=== PATIENT | female | born 1965 | race Caucasian/White ===

== ENCOUNTER → 2017-12-23 11:13 | Outpatient (CLI) | payer OTHER, SELFPAY ==
[2017-12-23 11:15] LABS: Bacteria 0 SEEN /hpf (None Seen); Mucous, Urine 0 SEEN /hpf (<or=2+); Red Blood Cells-Urine 0 SEEN /hpf (0-5); White Blood Cells 0 SEEN /hpf (0-5)
[2017-12-23 11:18] LABS: Color, Urine Yellow (Yellow); Glucose, Dipstick Normal (Normal); Ketone-Dipstick Negative (Negative); Leukocyte Esterase-Dipstick Negative /ul (Negative); Nitrite-Dipstick Negative (Negative); Occult Blood-Urine Negative /ul (Negative); Protein-Dipstick Negative (Negative); Specific Gravity, Urine 1.005 (1.002-1.030); Urine Bilirubin Dipstick Negative (Negative); Urine Clarity Clear (Clear); Urine Urobilinogen Normal (Normal)
[2017-12-23 11:26] LABS: Squamous Epithelial Cells - UA 0-5 SEEN /hpf (5-10)
== END ==
PROVIDERS: Visit Provider Nurse Practitioner Family
DX: R30.0 Dysuria (principal)
CPT/HCPCS: 81001; 87086

== ENCOUNTER 2018-01-19 23:22 | Emergency (ER) | payer OTHER, SELFPAY ==
[2018-01-19 23:23] VITALS: BP 143/69; PULSE 67; RESP 16; TEMP 36.6; O2SAT 96; BMI 29.6
--- NOTE | 2018-01-20 01:11 | ED.DCSUM_ITS ---
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 Patient grabbed her left arm and bend her left thumb back. Patient is complaining of pain to the base of the left thumb and along her forearm. She is right-hand dominant. Past history significant for coronary disease, asthma, hypertension, high cholesterol, reflux disease, hypothyroidism, arthritis. Physical Examination: Vital signs are unremarkable. Patient sitting in a bedside chair. Left upper extremity examination reveals tenderness palpation at the base of the left thumb. She does have normal range of motion. Normal cap refill and sensation are noted. She also has tenderness of the midshaft of the left forearm on the volar surface. No bruising or ecchymosis is noted. She has full range of motion of the elbow and shoulder. Test Results: Left hand x-rays revealed degenerative changes. There is mild lateral subluxation of the first metacarpal which may be long-standing. Left forearm x-rays reveal no acute traumatic injury. Emergency Department Course and Treatment: Patient is given a Velcro thumb spica splint. She will take Tylenol or ibuprofen at home for pain. She will follow up with critical access hospital. Treatment Plan: [] Disposition: Discharge Impression: 1. Left thumb sprain 2. Left forearm contusion This note was generated with [employer] dictation software. It may contain incorrect words, spelling, and punctuation that were not noted in review of the chart prior to signing ED Disposition - Plan for ED Patient: Disposition: Home or Assisted Living Chief Complaint: Upper Extremity Injury Instructions: ED Sprain Finger Referrals: [facility] [GROUP OF PHYSICIANS] - 2 Days
--- NOTE | 2018-01-20 01:11 | ED.DEP ---
ED Disposition - Plan for ED Patient: Disposition: Home or Assisted Living Chief Complaint: Upper Extremity Injury Instructions: ED Sprain Finger Referrals: [facility] [GROUP OF PHYSICIANS] - 2 Days
[2018-01-20 01:24] VITALS: RESP 14
== END 2018-01-20 01:25 | disposition home or self-care (01) ==
PROVIDERS: Emergency Provider Emergency Medicine; Family Provider Family Medicine; PCP Family Medicine
DX: S63.642A Sprain of metacarpophalangeal joint of left thumb, initial encounter (principal); S50.12XA Contusion of left forearm, initial encounter; Y04.2XXA Assault by strike against or bumped into by another person, initial encounter; Y93.89 Activity, other specified; Y92.230 Patient room in hospital as the place of occurrence of the external cause; Y99.0 Civilian activity done for income or pay; I25.10 Atherosclerotic heart disease of native coronary artery without angina pectoris; I10 Essential (primary) hypertension; E78.00 Pure hypercholesterolemia, unspecified; K21.9 Gastro-esophageal reflux disease without esophagitis; E03.9 Hypothyroidism, unspecified; Z87.891 Personal history of nicotine dependence
CPT/HCPCS: 73090; 73130; 99283

== ENCOUNTER → 2018-09-17 11:00 | Outpatient (CLI) | payer OTHER, SELFPAY ==
[2018-09-03 10:40] VITALS: BMI 30.4
== END ==
PROVIDERS: Family Provider Family Medicine; PCP Family Medicine; Referring Provider Internal Medicine Critical Care Medicine; Visit Provider Internal Medicine Critical Care Medicine
DX: Z09 Encounter for follow-up examination after completed treatment for conditions other than malignant neoplasm (principal)
CPT/HCPCS: 98960; G0463

== ENCOUNTER → 2018-09-21 11:13 | Outpatient (CLI) | payer OTHER, SELFPAY ==
[2018-09-21 10:41] VITALS: BMI 30.4
[2018-09-21 12:28] LABS: T4 Free Direct 1.11 ng/dL (0.76-1.46); Thyroid Stim Hormone (TSH) 1.31 uIU/mL (0.358-3.74)
== END ==
PROVIDERS: Family Provider Family Medicine; PCP Family Medicine; Visit Provider Family Medicine
DX: E03.9 Hypothyroidism, unspecified (principal)
CPT/HCPCS: 36415; 84439; 84443

== ENCOUNTER → 2018-10-14 11:05 | Outpatient (CLI) | payer OTHER, SELFPAY ==
[2018-09-03 10:40] VITALS: BMI 30.4
[2018-10-13 10:07] VITALS: BMI 30.4
--- NOTE | 2018-10-15 11:30 | PFT ---
INTRODUCTION: The patient is a 53-year-old female that presents for pulmonary function studies secondary to a diagnosis of asthma. Respiratory therapy reports good patient effort. Bronchodilators were used during testing. INTERPRETATION: Forced expiration spirometry demonstrates no evidence of a large airways obstructive ventilatory defect. There was no significant response to aerosolized bronchodilators. Spirograms are of good quality and plateau normally. Body plethysmography was performed and reveals lung volumes to be within normal limits. Diffusing capacity by single breath CO is within normal limits at 95% of predicted. IMPRESSION: Normal pulmonary function studies.
== END ==
PROVIDERS: Family Provider Family Medicine; PCP Family Medicine; Referring Provider Internal Medicine Critical Care Medicine; Visit Provider Internal Medicine Critical Care Medicine
DX: J45.909 Unspecified asthma, uncomplicated (principal)
CPT/HCPCS: 94060; 94726; 94729

== ENCOUNTER → 2018-11-29 10:39 | Outpatient (CLI) | payer OTHER, SELFPAY ==
[2018-11-29 10:33] VITALS: BMI 30.5
--- NOTE | 2018-11-29 10:41 | RAD_ITS ---
STUDY: X-RAY - PELVIS AND LEFT HIP REASON FOR EXAM: Female, 53 years old. Hip pain. TECHNIQUE: 3 views of the pelvis and hip. COMPARISON: None. FINDINGS: There is a non-specific bowel gas pattern. Normal visualized soft tissue structures. There are bilateral surgical clips within the pelvis consistent with prior tubal ligation. Normal bilateral iliac wings, sacroiliac joints and visualized sacrum. Normal bilateral superior and inferior pubic rami. There are degenerative changes of the pubic symphysis with articular narrowing and sclerosis. Normal bilateral ischial tuberosities. There are degenerative changes of the hips characterized by joint space narrowing and subchondral sclerosis. RAD/HIP, UNI W/ Pelvis 2-3 Views IMPRESSION: Degenerative changes. Electronically Signed: Tasneem Delaney MD at 17:02 EDT Tel , Service support ,
== END ==
PROVIDERS: Family Provider Family Medicine; PCP Family Medicine; Referring Provider Orthopaedic Surgery; Visit Provider Orthopaedic Surgery
DX: M25.562 Pain in left knee (principal)
CPT/HCPCS: 73502

== ENCOUNTER → 2019-01-12 14:21 | Outpatient (CLI) | payer OTHER, SELFPAY ==
--- NOTE | 2019-01-12 | EMB_PTH ---
PATIENT: MARCIN TAYLOR LOC: [facility] U#:[id number] AGE/SX: 59/F ROOM: RE01/12/[address]: ELENA Srinivasan : 1965 BED: DIS: SPEC #: [id number] RECD: 01/12/19 16:24 STATUS: GOOD ENDER #: [id number] ELLIE: 01/12/19 00:[address]: Aruna Bruno NP DEPT: SURGICAL PATHOLOGY RECD BY: Hollis Nation ENTERED: 01/13/19 07:45 SP TYPE: ENDOM BX/C YUN DR: Dr. Pato Ching DO Tissues: A - Endometrium, NOS B - Uterine cervix, NOS Procedures: Surgery Specimen Level IV HEADER OPERATION: Endometrial biopsy; cervical biopsy PRE-OP DIAGNOSIS: Abnormal uterine bleeding; polyp TISSUE SUBMITTED: A - Endometrial biopsy, B - Cervical polyp MICROSCOPIC DIAGNOSIS A. Endometrial biopsy: Simple cystic endometrial hyperplasia without atypia. B. Cervical polyp, biopsy: A fragment of inflamed benign endocervical polyp. Fragments of benign endocervical mucosa with squamous metaplasia. MARTINEZ:shala 01/14/19 MICROSCOPIC DESCRIPTION Slides are reviewed. GROSS DESCRIPTION A - Received in fixative is one container labeled with the patient's name and designated EM biopsy. The specimen consists of multiple fragments of hemorrhagic soft tissue that in aggregate measure 7.5 x 3 x 0.3 cm. The entire specimen is submitted in three cassettes. B - Received in fixative is one container labeled with the patient's name and designated cervical biopsy. The specimen consists of a pickens-pink polyp measuring 1 x 1 x 0.3 cm. Also present in the container are multiple fragments of hemorrhagic mucoid tissue that in aggregate measure 2 x 2 x 0.2 cm. The entire specimen is submitted in one cassette. / MARTINEZ:shala 01/13/19 TC:5 CPT: 79622 x2
[2019-01-12 13:47] VITALS: BMI 30.6
[2019-01-12 15:47] LABS: Absolute Lymphocyte Count 2.09 X10^3/uL (0.83-4.51); Absolute Neutrophil Count 9.3 X10^3/uL (2.0-7.7); Basophil# 0.04 X10^3/uL; Basophil% 0.3 % (0-1); Eosinophil# 0.03 X10^3/uL; Eosinophils% 0.2 % (0-5); Hematocrit 43.9 % (37-47); Lymphocyte # 2.09 X10^3/ul (4.0); Lymphocyte % 16.9 % (19-41); Mean Corp Hgb Conc 34.2 g/dL (32-36); Mean Corpuscular Hgb 31.5 pg (27.0-32.0); Mean Corpuscular Volume 92.2 fL (81-99); Mean Platelet Vol. 12.1 fl (6.2-12.0); Monocyte# 0.88 X10^3/uL; Monocyte% 7.1 % (0-10); NRBC Flagged by Analyzer 0 % (0-5); Neutrophil # 9.25 X10^3/uL (2.7-7.7); Neutrophil % 74.9 % (47-70); Platelet Count 210 K/mm3 (150-450); RBC Distribution Width CV 12.3 % (11.6-14.6); RBC Distribution Width SD 41.8 fl (35.1-43.9); Red Blood Count 4.76 M/mm3 (4.2-5.4); White Blood Count 12.4 K/mm3 (4.4-11.0)
== END ==
PROVIDERS: Family Provider Family Medicine; PCP Family Medicine; Referring Provider Nurse Practitioner Women's Health; Visit Provider Nurse Practitioner Women's Health
DX: N84.1 Polyp of cervix uteri (principal); N93.9 Abnormal uterine and vaginal bleeding, unspecified
CPT/HCPCS: 36415; 85025; 88305

== ENCOUNTER → 2019-01-14 14:06 | Outpatient (CLI) | payer OTHER, SELFPAY ==
[2019-01-07 14:50] VITALS: BMI 30.2
[2019-01-12 13:47] VITALS: BMI 30.6
--- NOTE | 2019-01-14 14:08 | US_ITS ---
STUDY: ULTRASOUND TRANSVAGINAL CLINICAL: Female, 53 years old. Dysfunctional uterine bleeding. TECHNIQUE: Predominantly transvaginal. 3 transabdominal images were obtained at the end of the study for uterine measurements. COMPARISON: Plain film AP pelvis and additional views of the right hip November 29, 2018. FINDINGS: The uterus is anteverted and is in a midline position. The uterus measures 13.0 x 8.7 x 8.9 cm. There is a 2.8 x 2.0 x 1.64 fluid-filled structure in the left posterior margin of the cervix. This might represent a nabothian cyst. The endometrium measures 14 mm in thickness, and is hyperechoic. There is no demonstrated endometrial mass. 2.8 x 3.1 x 3.6 cm heterogeneous mass consistent with a fibroid noted in the right body of the uterus I.U.D. - The patient does not have an I.U.D. The right ovary is surgically absent. There is no visualized right adnexal mass or complex lesion. There is normal arterial and normal venous vascularity. The left ovary is visualized. The left ovary measures 5.0 x 3.2 x 2.6 cm. This includes a 2.8 x 2.7 x 2.1 cm simple appearing cyst. There is no visualized left adnexal mass or complex lesion. There is normal arterial and normal venous vascularity. There is a small volume fluid in the left adnexa extending toward the cul-de-sac. Polycystic ovary disease: No. US/Transvaginal Non- IMPRESSION: 1. 3.6 cm probable fibroid in the right body of the mildly enlarged uterus. 2. Thickened endometrium, which could be physiologic. Blood clot within the endometrial cavity could also have this appearance. Hyperplasia/neoplasia not excluded. One might consider follow up immediately after the next 1-2 menstrual cycles to demonstrate normal physiologic thinning. 3. 2.8 cm fluid-filled structure along the left posterior margin of the cervix. This has a more exophytic appearance than expected for a nabothian cyst, although that is not excluded. 4. The right ovary is surgically absent. 5. 2.8 cm simple appearing cyst/follicle in the left ovary. There is small volume free fluid nearby. Electronically Signed: Darío Looney MD at 20:08 EDT , Service support ,
== END ==
PROVIDERS: Family Provider Family Medicine; PCP Family Medicine; Referring Provider Internal Medicine; Visit Provider Internal Medicine
DX: N93.8 Other specified abnormal uterine and vaginal bleeding (principal)
CPT/HCPCS: 76830; 93976

== ENCOUNTER → 2019-02-02 11:43 | Outpatient (CLI) | payer OTHER, SELFPAY ==
[2019-01-25 11:33] VITALS: BMI 30.6
[2019-02-02 12:50] LABS: Absolute Lymphocyte Count 1.11 X10^3/uL (0.83-4.51); Absolute Neutrophil Count 9.9 X10^3/uL (2.0-7.7); Basophil# 0.04 X10^3/uL; Basophil% 0.3 % (0-1); Eosinophil# 0.08 X10^3/uL; Eosinophils% 0.7 % (0-5); Hematocrit 41.1 % (37-47); Hemoglobin 13.8 g/dL (12.0-15.0); Lymphocyte # 1.11 X10^3/ul (4.0); Lymphocyte % 9.3 % (19-41); Mean Corp Hgb Conc 33.6 g/dL (32-36); Mean Corpuscular Hgb 31.3 pg (27.0-32.0); Mean Corpuscular Volume 93.2 fL (81-99); Mean Platelet Vol. 12.1 fl (6.2-12.0); Monocyte# 0.81 X10^3/uL; Monocyte% 6.8 % (0-10); NRBC Flagged by Analyzer 0 % (0-5); Neutrophil # 9.88 X10^3/uL (2.7-7.7); Neutrophil % 82.4 % (47-70); Platelet Count 187 K/mm3 (150-450); RBC Distribution Width CV 12.4 % (11.6-14.6); RBC Distribution Width SD 42.5 fl (35.1-43.9); Red Blood Count 4.41 M/mm3 (4.2-5.4)
== END ==
PROVIDERS: Family Provider Family Medicine; PCP Family Medicine; Referring Provider Obstetrics & Gynecology; Visit Provider Obstetrics & Gynecology
DX: N93.9 Abnormal uterine and vaginal bleeding, unspecified (principal)
CPT/HCPCS: 36415; 85025

== ENCOUNTER → 2019-02-04 08:32 | Outpatient (CLI) | payer OTHER, SELFPAY ==
[2019-02-03 15:37] VITALS: BMI 31.1
--- NOTE | 2019-02-04 08:34 | STE_ITS ---
Reason For Study: PREOP Stress Results Protocol: Dobutamine Protocol Maximum Predicted HR: 165 bpm Target HR: 140 bpm % Maximum Predicted HR: 86 % DurationHeart Rate Stage (mm:ss) (bpm) BP BASELINE 93 147/96 10 MCG 3:02 101 134/74 20 MCG 3:25 142 121/75 RECOVERY 95 129/69 Stress Duration: 6:27 mm:ss Maximum Stress HR: 142 bpm Baseline Echocardiogram Findings The estimated ejection fraction is 65 %. Stress Echo Wall motion Data Resting WM Intermediate WM Stress WM Resting Wall Motion Wall Motion Stress No regional wall motion No regional wall motion abnormalities noted. abnormalities noted. EKG Data The baseline ECG displays normal sinus rhythm. The patient was titrated from 10 mcg to a maximum of 20 mcg of dobutamine during the stress. The maximum heart rate attained was 166 beats per minute. This was 100% of maximum predicted heart rate. During dobutamine infusion, there were no ST or T wave changes noted to suggest ischemia. No clinical angina was noted. Interpretation Summary The estimated ejection fraction is 65 %. Normal, adequate, dobutamine echocardiogram. Negative for ischemia by EKG and echocardiographic criteria. No anginal symptoms noted. Rare PVCs noted during infusion and into recovery which is a nonspecific finding. Appropriate blood pressure response to dobutamine. Final LVEF is 75%. Test terminated due to the attainment of target heart rate. No complications. Ordering Physician: Dajuan Garcia Referring Physician: Dajuan Garcia Performed By: Dorota Markham, SARITA, RVT
== END ==
PROVIDERS: Family Provider Family Medicine; PCP Family Medicine; Referring Provider Internal Medicine Cardiovascular Disease; Visit Provider Internal Medicine Cardiovascular Disease
DX: Z01.810 Encounter for preprocedural cardiovascular examination (principal); I25.10 Atherosclerotic heart disease of native coronary artery without angina pectoris; I10 Essential (primary) hypertension; I49.3 Ventricular premature depolarization; J45.909 Unspecified asthma, uncomplicated; N93.9 Abnormal uterine and vaginal bleeding, unspecified; K52.9 Noninfective gastroenteritis and colitis, unspecified
CPT/HCPCS: 93017; 93350; J7040; Q9957; A4216

== ENCOUNTER → 2019-02-16 10:40 | Outpatient (CLI) | payer OTHER, SELFPAY ==
[2019-02-16 10:18] VITALS: BMI 31.4
[2019-02-16 12:32] LABS: Anion Gap 8 (5-15); BUN 10 mg/dL (7-18); BUN/Creat Ratio 12.5 RATIO (10-20); Calcium,Total 8.6 mg/dL (8.5-10.1); Chloride 108 mmol/L (98-107); Cholesterol 117 mg/dL (200); EST Glomerular Filtration Rate 79 mL/min (>60); Est Glom Filt Rate - Afr Amer 95 mL/min (>60); Glucose 111 mg/dL (74-106); High Density Lipoprotein 33 mg/dL; Sodium Level 140 mmol/L (136-145); Triglycerides 103 mg/dL; Very Low Density Lipoprotein 21 mg/dL (5-40)
[2019-02-18 13:09] LABS: Thyroid Stim Hormone (TSH) 2.31 uIU/mL (0.358-3.74)
== END ==
PROVIDERS: Family Provider Family Medicine; PCP Family Medicine; Visit Provider Family Medicine
DX: E78.5 Hyperlipidemia, unspecified (principal); R53.83 Other fatigue
CPT/HCPCS: 36415; 80048; 80061; 84443

== ENCOUNTER → 2019-02-16 10:43 | Outpatient (REF) | payer OTHER, SELFPAY ==
[2019-02-16 10:18] VITALS: BMI 31.4
[2019-02-16 12:23] LABS: Absolute Lymphocyte Count 1.27 X10^3/uL (0.83-4.51); Absolute Neutrophil Count 5.5 X10^3/uL (2.0-7.7); Basophil# 0.02 X10^3/uL; Basophil% 0.3 % (0-1); Eosinophils% 1.3 % (0-5); Hematocrit 41.6 % (37-47); Hemoglobin 13.4 g/dL (12.0-15.0); Lymphocyte # 1.27 X10^3/ul; Lymphocyte % 17.1 % (19-41); Mean Corp Hgb Conc 32.2 g/dL (32-36); Mean Corpuscular Hgb 30.4 pg (27.0-32.0); Mean Corpuscular Volume 94.3 fL (81-99); Monocyte# 0.48 X10^3/uL; Monocyte% 6.5 % (0-10); NRBC Flagged by Analyzer 0 % (0-5); Neutrophil # 5.53 X10^3/uL (2.7-7.7); Neutrophil % 74.5 % (47-70); Platelet Count 189 K/mm3 (150-450); RBC Distribution Width CV 12.3 % (11.6-14.6); RBC Distribution Width SD 43.2 fl (35.1-43.9); Red Blood Count 4.41 M/mm3 (4.2-5.4); White Blood Count 7.4 K/mm3 (4.4-11.0)
[2019-02-16 12:31] LABS: Color, Urine Yellow (Yellow); Glucose, Dipstick Normal (Normal); Ketone-Dipstick Negative (Negative); Leukocyte Esterase-Dipstick Negative /ul (Negative); Nitrite-Dipstick Negative (Negative); Occult Blood-Urine 25 /ul (Negative); Protein-Dipstick Negative (Negative); Urine Bilirubin Dipstick Negative (Negative); Urine Clarity Clear (Clear); Urine Urobilinogen Normal (Normal)
[2019-02-16 12:34] LABS: ALB/GLOB Ratio 1.1 RATIO (0.9-2.4); AST(SGOT) 23 U/L (15-37); Alanine Aminotransfer ALT/SGPT 44 U/L (13-56); Albumin, Serum 3.5 g/dL (3.2-5.0); Alkaline Phosphatase 67 U/L (45-117); Anion Gap 7 (5-15); BUN 10 mg/dL (7-18); Calcium,Total 8.5 mg/dL (8.5-10.1); Chloride 109 mmol/L (98-107); Cholesterol 123 mg/dL (200); Creatinine, Serum 0.84 mg/dL (0.55-1.02); EST Glomerular Filtration Rate 75 mL/min (>60); Est Glom Filt Rate - Afr Amer 91 mL/min (>60); Globulin 3.3 g/dL (2.2-4.2); Glucose 111 mg/dL (74-106); High Density Lipoprotein 39 mg/dL; LDH 168 U/L (84-246); Phosphorus 3.3 mg/dL (2.5-4.9); Protein, Total 6.8 g/dL (6.4-8.2); Sodium Level 140 mmol/L (136-145); Triglycerides 101 mg/dL; Uric Acid 4.8 mg/dL (2.6-6.0); Very Low Density Lipoprotein 20 mg/dL (5-40)
== END ==
LOC: EMPH 10:43
PROVIDERS: Family Provider Family Medicine; PCP Family Medicine
DX: Z00.00 Encounter for general adult medical examination without abnormal findings (principal)

== ENCOUNTER 2019-02-24 08:54 | Day surgery (SDC) | payer OTHER, SELFPAY ==
[2019-01-25 11:33] VITALS: BMI 30.6
[2019-02-16 10:18] VITALS: BMI 31.4
--- NOTE | 2019-02-17 04:50 | HP.PCM_ITS ---
- Problem List (1) Abnormal uterine bleeding Status: Acute Comment: simple hyperplasia, plan LAVH BS cysto (2) History of electrophysiologic study Status: Acute (3) Uterine fibroid Status: Acute (4) Acid reflux Status: Chronic (5) Arthritis Status: Chronic (6) Asthma Status: Chronic Qualifiers: (7) Atherosclerotic heart disease of [place] coronary artery without angina pectoris Status: Chronic Comment: Mild nonobstructive disease of mid LAD per [facility] 01/12/15 (8) Chronic vasomotor rhinitis Status: Chronic (9) Colitis Status: Chronic (10) Fatigue Status: Chronic (11) HLD (hyperlipidemia) Status: Chronic (12) HTN (hypertension) Status: Chronic Qualifiers: (13) Hypothyroid Status: Chronic (14) Obstructive sleep apnea (adult) (pediatric) Status: Chronic (15) Paroxysmal ventricular tachycardia Status: Chronic Comment: EPS for RVOT PVC's w/ VT RFA 02/05/2017 (16) Premature ventricular contractions (PVCs) (VPCs) Status: Chronic (17) Seasonal allergies Status: Chronic (18) Status post radiofrequency ablation (RFA) operation for arrhythmia Status: Chronic (19) Thyroid disease Status: Chronic (20) CHIOMA plantar fascitis repair Status: Resolved (21) H/O tubal ligation Status: Resolved (22) History of left heart catheterization Status: Resolved Comment: 01/12/2015 (23) History of tonsillectomy Status: Resolved History and Physical Date of Admission: 02/24/19 Intake Vital Signs 01/25/19 Body Mass Index (BMI) 30.6 01/25/19 Height 5 ft 7 in 01/25/19 Weight: 207 lb 01/25/19 Body Mass Index (BMI) 32.4 01/25/19 Blood Pressure 124/82 H 01/18/19 Body Mass Index (BMI) 30.6 Intake Visit Reasons: Discuss surgery- has not been scheduled. 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 Required: No Is patient in pain?: No Allergies amoxicillin Allergy (Intermediate, Verified 01/25/19 11:32) Hives Penicillins Allergy (Intermediate, Verified 01/25/19 11:32) Hives erythromycin base Allergy (Verified 01/25/19 11:32) hives/rash Medications Aspirin [Aspirin, Baby] 81 mg PO DAILY@0800 01/11/15 [History Confirmed 01/25/19] potassium chloride ER 20 mEq tablet,extended release 20 meq PO QDAY #90 tab 04/20/18 [Rx Confirmed 01/25/19] albuterol sulfate HFA 90 mcg/actuation aerosol inhaler 1 - 2 puff INHALATION Q6H PRN PRN #8.5 g 07/01/18 [Rx Confirmed 01/25/19] fluticasone 250 mcg-salmeterol 50 mcg/dose blistr powdr for inhalation 1 inh INHALATION BID 07/01/18 [History Confirmed 01/25/19] fluticasone propionate 50 mcg/actuation nasal spray,suspension 2 spray INTRANASAL DAILY #9.9 g 07/01/18 [Rx Confirmed 01/25/19] cetirizine 10 mg tablet 10 mg PO DAILY 07/12/18 [History Confirmed 01/25/19] diltiazem ER 120 mg tablet,extended release 24 hr 120 mg PO DAILY #30 tab 07/30/18 [Rx Confirmed 01/25/19] lansoprazole 30 mg capsule,delayed release 30 mg PO DAILY #90 cap 08/05/18 [Rx Confirmed 01/25/19] simvastatin 10 mg tablet 10 mg PO QHS #90 tab 09/21/18 [Rx Confirmed 01/25/19] diclofenac 1 % topical gel 2 g TOPICAL .twice daily #100 g 12/21/18 [Rx Confirmed 01/25/19] levothyroxine 100 mcg tablet 100 mcg PO DAILY #90 tab 12/21/18 [Rx Confirmed 01/25/19] lisinopril 20 mg tablet 20 mg PO QHS #90 tab 12/21/18 [Rx Confirmed 01/25/19] lisinopril 20 mg-hydrochlorothiazide 25 mg tablet 1 tab PO DAILY #90 tab 12/21/18 [Rx Confirmed 01/25/19] meloxicam 15 mg tablet 15 mg PO QODAY #90 tab 12/21/18 [Rx Confirmed 01/25/19] mesalamine 1.2 gram tablet,delayed release 2.4 g PO QDAY #180 tab 12/21/18 [Rx Confirmed 01/25/19] norethindrone acetate 5 mg tablet 5 mg PO .COMPLEX #45 tab 01/12/19 [Rx Confirmed 01/25/19] Is last menstrual period known: No Post menopausal: No Patient : No : No PFSH Medical History Arthritis (Chronic) Colitis (Chronic) Thyroid disease (Chronic) Seasonal allergies (Chronic) Asthma (Chronic) Acid reflux (Chronic) Hypothyroid (Chronic) Premature ventricular contractions (PVCs) (VPCs) (Chronic) HTN (hypertension) (Chronic) Dyspnea on exertion (Chronic) HLD (hyperlipidemia) (Chronic) Atherosclerotic heart disease of [place] coronary artery without angina pectoris (Chronic) Paroxysmal ventricular tachycardia (Chronic) Fatigue (Chronic) Obstructive sleep apnea (adult) (pediatric) (Chronic) Surgical History History of tonsillectomy (Resolved) H/O tubal ligation (Resolved) CHIOMA plantar fascitis repair (Resolved) History of left heart catheterization (Resolved 01/20/15) History of electrophysiologic study (Acute) History of colonoscopy (Acute) Status post radiofrequency ablation (RFA) operation for arrhythmia (Chronic 02/05/17) Family History Sister Colon cancer Grandmother Cancer Hypertension Diabetes Grandmother Hypertension Cancer Social History (Updated 01/25/19 @ 13:12 by Hillary Bailey MD) Smoking Status: Former smoker Tobacco: How many years used: 30 how long ago did patient quit smokin, 1ppd second hand exposure: Yes alcohol intake: current substance use type: does not use caffeine: Yes what type of physical activity do you participate in: none seatbelt use: always do you feel safe at home: Yes 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 : Details: MARCIN TAYLOR is a 53 year old who presents for AUB, fibroids, and endometrial hyperplasia. she has heavy prolonged bleeding which has decreased with the aygestin but she also has pelvic pain and pressure and is wanting to proceed with definitive therapy. Pregancy History 6 Elective abortions Hx Para 3 Spontaneous abortions Hx # Term Pregnancies Ectopic pregnancies Hx # Pregnancies Multiple births # of living children Past Pregnancies Del. Date Name GA/Weeks Outcome Route Bth Weight Infant Gen Labor Lgth Anesthesia Del Locatn Provider FOB Unknown Nick-1984 Unknown Ramana-1987 Unknown Erich-1991 ROS Const Constitutional: Reports as per HPI Cardio Card: Denies chest pain Resp Resp: Denies cough or dyspnea GI GI: Reports as per HPI; denies abdominal pain, constipation, nausea or vomiting : Reports as per HPI; denies nipple discharge Skin Skin/Breast: Denies change in hair, breast lump, breast pain, breast skin changes or nipple discharge Exam Const General: cooperative, no acute distress Nutritional Appearance: average body habitus Orientation: alert HENMT Head: normal to inspection, normocephalic Neck Neck: normal visual inspection, trachea midline Thyroid: thyroid normal Resp Effort & Inspection: normal respiratory effort External Female Exam: normal external appearance, normal appearance of the urethra Urethra: normal appearance of the urethra Speculum Exam - Vagina: normal appearance of the vagina Speculum Exam - Cervix: other (1cm endocervical polyp at os) Bimanual Exam- Vagina & Uterus: uterine mobility normal, uterus non-tender, uterus enlarged (10 week) Bimanual Exam- Adnexa, other: normal adnexae, no adnexal masses, adnexae non- tender Skin General: no rashes or lesions noted Assessment & Plan Problems 1. Abnormal uterine bleeding N93.9 simple hyperplasia, plan LAVH BS cysto 2. Uterine fibroid D25.9 Plan discussed options plan surgical intervention. will schedule After discussing the patient's diagnosis and treatment plan options, patient wishes to proceed with surgical management. I have discussed with the patient the risks, benefits, and alternatives of the procedure which include but are not limited to risks of anesthesia, bleeding, infection, possible damage to bowel, bladder, or surrounding vasculature which could lead to additional surgery to evaluate any complications. Patient agrees to procedure and wishes to proceed. ACOG/uptodate references given for additional information regarding procedure. Coding Level of Care Code Off vis,est,level 4 Diagnoses Abnormal uterine bleeding N93.9 Uterine fibroid D25.9
[2019-02-24] VITALS (17 sets, daily range): BP systolic 105–137; BP diastolic 55–88; PULSE 84–108; RESP 16–18; TEMP 36.6–37.6; O2SAT 95–100; BMI 30.9
--- NOTE | 2019-02-24 | HYST_PTH ---
PATIENT: MARCIN TAYLOR LOC: [facility] U#:[id number] AGE/SX: 53/F ROOM: RE02/24/[address]: Dr. Hillary Bailey MD : 1965 BED: DIS: 02/25/2019 SPEC #: [id number] RECD: 02/24/19 16:26 STATUS: GOOD ENDER #: [id number] ELLIE: 02/24/19 00:[address]: Hillary Bailey DEPT: SURGICAL PATHOLOGY RECD BY: Jai Villeda ENTERED: 02/25/19 09:12 SP TYPE: HYSTERECT OTHR DR: DO Dr. Leonardo Cornelius MD Tissues: Uterus, NOS Procedures: Surgery Specimen Level V HEADER OPERATION: ERAS, hysterectomy, lap-assisted vaginal, salpingectomy, cysto PRE-OP DIAGNOSIS: Abnormal uterine bleeding N93.9; uterine fibroid D25.9 TISSUE SUBMITTED: Uterus, cervix and left fallopian tube MICROSCOPIC DIAGNOSIS Uterus, cervix and left fallopian tube, vaginal hysterectomy and left salpingectomy: Cervix - mild chronic cystic cervicitis. - A small benign inflamed endocervical polyp. Endometrium - consistent with exogenous hormone effect with extensive cystic changes. Myometrium - intramural leiomyomas (largest measuring 6 cm in greatest dimension. Left fallopian tube - no pathologic diagnosis. See comment. Left paratubal cyst. SJ:shala 02/28/19 COMMENT Focal are of tip of fimbrial end shows ovarian tissue with mesothelial inclusion cysts may represent old tubo-ovarian adhesion. Please make reference to previous specimen ([id number]) endometrial biopsy with diagnosis of simple cystic endometrial hyperplasia without atypia and cervical polyp with diagnosis of a fragment of inflamed benign endocervical polyp. MICROSCOPIC DESCRIPTION Slides are reviewed. GROSS DESCRIPTION Received in fixative is one container labeled with the patient's name and designated uterus, cervix, fallopian tube, left. The specimen consists of a hysterectomy specimen consisting of uterus in multiple pieces, cervix and one fallopian tube identified as left. The uterus with cervix weighs in aggregate 585 gm. One piece consists of cervix and lower uterine segment and measures 7.5 x 3 x 3 cm. The ectocervical mucosa is unremarkable. The external os is oval in contour. The endocervical canal measures up to 4.5 cm in length and the endocervical mucosa is pickens, glistening and unremarkable. The triangular endometrial cavity measures 8 x 2.5 x 2.5 cm. The largest piece of uterus measures 12 x 10 x 8 cm. The detached smaller pieces of uterus measures in aggregate 12 x 12 x 5 cm. Sections of the largest piece of uterus reveal multiple intramural masses. The largest mass measures 6 cm in greatest dimension. Sections of these masses reveal pickens whorled cut surfaces without areas of hemorrhage, necrosis or cystic degeneration. The uninvolved uterine wall measures up to 6 cm in thickness. A piece of uterus shows focal area of pink-red endometrium without any additional mass lesion. The endometrium in this area measures 0.1 cm in thickness. The left fallopian tube measures 6 cm in length and 0.5 cm in diameter. The fimbrial end is identified. The proximal end of the fallopian tube shows two [place] clips which appear intact. A paratubal cyst is noted adjacent to the fimbrial end of the fallopian tube measuring 2.5 cm in greatest dimension. It is filled with clear fluid. Counterintelligence Specialist sections are submitted in 11 cassettes as follows: 1 & 2 - cervix, 3-6 - uterine wall with possible endometrial lining, 7??largest nodular mass, 8 - second largest nodular mass, 9 & 10 - smaller nodular masses, 11 - left fallopian tube and paratubal cyst. / MARTINEZ:shala 02/25/19 TC: 5 CPT: 34489
[2019-02-24] MEDS: dexAMETHasone 10 MG/ML Vial 8 MG IV (07:00)
[2019-02-24] MEDS: Magnesium Sulfate 4gm/100mL 4 GM/100 ML IV.SOLN. IV (07:00)
[2019-02-24 09:29] LABS: Internal QC Validated? YES +Cl - CLEAR BKGD; Pregnancy, Urine Negative Negative
[2019-02-24 09:46] LABS: Bedside Glucose 159 mg/dL (70-110)
[2019-02-24] MEDS: Acetaminophen 500 MG Tablet 1000 MG PO ×2 (10:06→17:44)
[2019-02-24] MEDS: Scopolamine 1mg/72hr Patch 1 PATCH TRANSDERM. (10:06)
[2019-02-24] MEDS: Gabapentin 600 MG Tablet PO (10:07)
[2019-02-24] MEDS: Celecoxib 200 MG Capsule 400 MG PO (10:07)
[2019-02-24] MEDS: Phenazopyridine 95 MG Tablet 190 MG PO (10:08)
[2019-02-24] MEDS: Lactated Ringers 1,000 ML 40 ML IV (10:11)
[2019-02-24] MEDS: Enoxaparin 40 MG/0.4 ML Syringe SC (10:13)
[2019-02-24 10:30] LABS: International Normalized Ratio 1.1
--- NOTE | 2019-02-24 11:24 | OP.PCM_ITS ---
Problem List (1) Abnormal uterine bleeding Status: Acute Comment: simple hyperplasia, plan LAVH BS cysto (2) History of electrophysiologic study Status: Acute (3) Uterine fibroid Status: Acute (4) Acid reflux Status: Chronic (5) Arthritis Status: Chronic (6) Asthma Status: Chronic Qualifiers: (7) Chronic vasomotor rhinitis Status: Chronic (8) Colitis Status: Chronic (9) Fatigue Status: Chronic (10) HLD (hyperlipidemia) Status: Chronic (11) HTN (hypertension) Status: Chronic Qualifiers: (12) Hypothyroid Status: Chronic (13) Obstructive sleep apnea (adult) (pediatric) Status: Chronic (14) Paroxysmal ventricular tachycardia Status: Chronic Comment: EPS for RVOT PVC's w/ VT RFA 02/05/2017 (15) Premature ventricular contractions (PVCs) (VPCs) Status: Chronic (16) Seasonal allergies Status: Chronic (17) Status post radiofrequency ablation (RFA) operation for arrhythmia Status: Chronic (18) Thyroid disease Status: Chronic (19) H/O tubal ligation Status: Resolved (20) History of left heart catheterization Status: Resolved Comment: 01/12/2015 (21) History of tonsillectomy Status: Resolved Report of Operation Date of Procedure: 02/24/19 Pre-Operative Diagnosis: aub fibroids Post-Operative Diagnosis: same plus endometriosis Surgery/Procedure Performed:: lavh left salpingectomy cysto Description of Surgical Findings:: Stage II endometriosis with significant implants and adhesions in the left pelvic sidewall and over the uterus and ovaries and cul-de-sac. Significantly enlarged fibroid uterus right ovary and tube absent. 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 Patient was taken back to the operating room and placed in the dorsal lithotomy position. General anesthesia was induced and patient was prepped and draped in normal sterile fashion. Uterine manipulator was placed inside the uterus and Cook catheter placed in the bladder. The umbilicus was grasped with towel clamps and an intraumbilical incision was made after injecting with quarter percent Marcaine and a Veress needle entered into the abdomen confirmed to be intra-abdominal with a low opening pressure. Abdomen was insufflated with CO2 gas and the Veress needle removed and the 5 mm trocar was placed under direct visualization without complication. Right and left lower quadrants were transilluminated and injected with quarter percent Marcaine and 5 mm ports placed under direct visualization. Pelvis was well visualized see operative findings for additional information. Adhesions of the left pelvic sidewall to the omentum and sigmoid colon were taken down with the LigaSure device. Old endometriosis and adhesions were seen here in this area. Left fallopian tube was identified and transected with the LigaSure device across the mesosalpinx to the level of the utero-ovarian ligament which was also transected with the LigaSure device. Right fallopian tube and ovary were noted to be absent. There is a small adhesion of the tube to some epiploica of the rectosigmoid which was transected with the LigaSure device. The broad ligament was opened up by transecting the round ligament bilaterally and skeletonizing the uterine vessels bilaterally and creating a bladder flap using the LigaSure device. The uterine arteries were transected bilaterally with good visualization of the bladder and the ureters were seen to be inferior lateral to the operative area. Attention was then paid to the vaginal portion of the procedure and the cervix was grasped with Danny clamps and circumferentially injected with dilute vasopressin. A circumferential incision was made and the vaginal mucosa was mobilized off posteriorly and the cul-de-sac entered into sharply and a longneck speculum placed. The anterior cul-de-sac was then identified and entered into sharply. The uterosacral ligaments were clamped cut and suture ligated with 0 Monocryl bilaterally followed by the cardinal ligaments which were clamped cut and suture ligated bilaterally with 0 Monocryl. The uterus serially descended and was removed without difficulty with minimal morcellation. Pelvic sidewall pedicles were checked and noted to have excellent hemostasis. The vaginal mucosa was reapproximated incorporating the posterior peritoneum. This was reapproximated using 0 Vicryl [id number] sutures. Excellent hemostasis was noted. The cystoscopy was then performed and bilateral ureteral strong spray was noted and the bladder was noted to have no abnormality or lesions seen. Cook catheter was replaced and then attention paid to the abdominal portion of the procedure again. The pelvis and cul-de-sac was well visualized and no significant active bleeding noted but some raw areas were seen on the peritoneum and therefore surgicel was applied. Pressure was taken down and the areas visualized and noted of excellent hemostasis. All ports were removed under direct visualization without complication and the abdomen was desufflated of air. The instruments removed from the abdomen and the vagina vaginal sweep was negative. Port sites on the abdomen were closed with 4-0 Monocryl interrupted sutures and Steri's and windows were applied. She was awoken and taken recovery in stable condition. Grafts/Implants Used: none - Complications none - Admit VTE Documentation VTE Present on Admission: No VTE Mechan Device Prophylaxis: SCD's Multi Select Codes - Urinary/Genital Urinary/Genital CPT Codes: 54010 Cystoscopy, 23673 LAVH+BS/O >250gr Uterus
[2019-02-24] MEDS: Vasopressin 20 UNITS/ML Vial (11:41)
[2019-02-24] MEDS: Bupivacaine 0.25% 30 ML Vial (14:50)
--- NOTE | 2019-02-24 15:20 | EKGRS_ITS ---
Test Reason : EKG CHANGE Blood Pressure : / mmHG Vent. Rate : 085 BPM Atrial Rate : 085 BPM P-R Int : 162 ms QRS Dur : 100 ms QT Int : 404 ms P-R-T Axes : 077 071 055 degrees QTc Int : 480 ms Sinus rhythm with occasional Premature ventricular complexes Prolonged QT Abnormal ECG No previous ECGs available Confirmed by RAJINDER PAGAN ([id number]), newspaper photo editor BRYAN LOU ([id number]) on 03/01/2019 1:32:52 PM Referred By: Hillary Bailey Confirmed By:RAJINDER PAGAN
[2019-02-24] MEDS: Lactated Ringers 1,000 ML 70 ML IV ×2 (15:57→16:56)
[2019-02-24 16:06] LABS: Albumin, Serum 3.4 g/dL (3.2-5.0); Anion Gap 10 (5-15); BUN 10 mg/dL (7-18); BUN/Creat Ratio 9.2 RATIO (10-20); Calcium,Total 7.8 mg/dL (8.5-10.1); Chloride 109 mmol/L (98-107); Creatinine, Serum 1.09 mg/dL (0.55-1.02); EST Glomerular Filtration Rate 55 mL/min (>60); Est Glom Filt Rate - Afr Amer 67 mL/min (>60); Estimated Creatinine Clearance 56.71 ml/min; Glucose 136 mg/dL (74-106); Magnesium 2.6 mg/dL (1.6-2.6); Potassium 4.3 mmol/L (3.5-5.1); Sodium Level 141 mmol/L (136-145); Thyroid Stim Hormone (TSH) 2.19 uIU/mL (0.358-3.74)
[2019-02-24] MEDS: Ketorolac 30 MG/ML Syringe IV (16:36)
[2019-02-24] MEDS: oxyCODONE 5 MG Tablet PO ×2 (17:42→22:19)
--- NOTE | 2019-02-24 18:08 | PCM.CONS.C ---
Problem List (1) Paroxysmal ventricular tachycardia Status: Chronic Comment: EPS for RVOT PVC's w/ VT RFA 02/05/2017 (2) Premature ventricular contractions (PVCs) (VPCs) Status: Chronic (3) Status post radiofrequency ablation (RFA) operation for arrhythmia Status: Chronic (4) Atherosclerotic heart disease of [place] coronary artery without angina pectoris Status: Chronic Comment: Mild nonobstructive disease of mid LAD per [facility] 01/12/15 (5) HLD (hyperlipidemia) Status: Chronic (6) HTN (hypertension) Status: Chronic Qualifiers: Reason for Consult Date of Consultation: 02/24/19 History of Present Illness: The patient is a 53 year old white female with a past cardiovascular history which is included hyperlipidemia, hypertension, FST-qht-mfscseiowcattnnl significant, PVCs, paroxysmal ventricular tachycardia, status post EPS/RFA, who is now status post gynecologic surgery who is referred for postoperative evaluation of PVCs. The patient states at the moment she has no ongoing obvious symptoms with respect to palpitations. She notes no obvious ongoing chest discomfort or difficulty breathing. She states her main concerns are her lower abdominal/pelvic related concerns/discomfort occurring postop. She notes that since her most recent outpatient cardiovascular visit on she has had no new concerning symptoms of worsening palpitations, near-syncope/syncope, or concerns of chest discomfort or difficulty breathing leading up to the time of her surgery. She was placed on the medical surgical floor following her gynecologic surgery. She was placed on telemetry. She has been noted to have sinus rhythm with PVCs as well as evidence of ventricular trigeminy. A 12-lead ECG was obtained. She was noted to have sinus rhythm with PVCs in a pattern compatible with intermittent ventricular trigeminy. Otherwise there were no acute ECG changes. [] Past Medical History Allergies/Adverse Reactions: Allergies amoxicillin Allergy (Intermediate, Verified 02/24/19 09:49) Hives Penicillins Allergy (Intermediate, Verified 02/24/19 09:49) Hives erythromycin base Allergy (Verified 02/24/19 09:49) hives/rash Home Medications: Ambulatory Orders Medication Instructions Recorded Aspirin [Aspirin, Baby] 81 mg PO DAILY@0800 01/11/15 potassium chloride ER 20 mEq 20 meq PO QDAY #90 tab 04/20/18 tablet,extended release albuterol sulfate HFA 90 1 - 2 puff INHALATION Q6H PRN PRN 07/01/18 mcg/actuation aerosol inhaler #8.5 g cetirizine 10 mg tablet 10 mg PO DAILY 07/12/18 lansoprazole 30 mg capsule,delayed 30 mg PO DAILY #90 cap 08/05/18 release lisinopril 20 mg tablet 20 mg PO QHS #90 tab 12/21/18 lisinopril 20 1 tab PO DAILY #90 tab 12/21/18 mg-hydrochlorothiazide 25 mg tablet meloxicam 15 mg tablet 15 mg PO QODAY #90 tab 12/21/18 diltiazem ER 120 mg 120 mg PO DAILY #30 tab 02/16/19 tablet,extended release 24 hr levothyroxine 100 mcg tablet 100 mcg PO DAILY #90 tab 02/16/19 simvastatin 10 mg tablet 10 mg PO QHS #90 tab 02/16/19 Diclofenac Sodium [Voltaren] 2 g TOPICAL .twice daily PRN 02/18/19 Fluticasone Propion/Salmeterol 1 puff IH DAILY 02/18/19 [Wixela 250-50 Inhub] Mesalamine 2.4 g PO QDAY 02/18/19 norethindrone acetate 5 mg tablet 5 mg PO BID #7 tab 02/23/19 Oxycodone HCl/Acetaminophen 1 - 2 tab PO Q4H PRN PRN 7 Days 02/24/19 [Percocet 5-325] #15 tab Past Medical History (Chronic Problems): Chronic Problems (Last Reviewed 02/16/19 @ 10:40 by Pato Ching DO) Trochanteric bursitis of left hip (Chronic) Refer to ortho for injection Obstructive sleep apnea (adult) (pediatric) (Chronic) Arthritis (Chronic) Colitis (Chronic) Thyroid disease (Chronic) Seasonal allergies (Chronic) Chronic vasomotor rhinitis (Chronic) Thoracic back pain (Chronic) Asthma (Chronic) Acid reflux (Chronic) Hypothyroid (Chronic) Status post radiofrequency ablation (RFA) operation for arrhythmia (Chronic 02/05/17) Premature ventricular contractions (PVCs) (VPCs) (Chronic) HTN (hypertension) (Chronic) Dyspnea on exertion (Chronic) HLD (hyperlipidemia) (Chronic) Atherosclerotic heart disease of [place] coronary artery without angina pectoris (Chronic) Mild nonobstructive disease of mid LAD per [facility] 01/12/15 Paroxysmal ventricular tachycardia (Chronic) EPS for RVOT PVC's w/ VT RFA 02/05/2017 Fatigue (Chronic) Obstructive sleep apnea (adult) (pediatric) (Chronic) Lives: Spouse/ Significant Other Smoking Status: Former smoker Tobacco Use: Non-smoker Alcohol: None Drugs: None Review of Systems - Review of Systems General: Denies: Fever, Night Sweats, Fatigue Cardiovascular: Denies: Chest Discomfort, Shortness of Breath, Orthopnea, PND, Peripheral Edema, Palpitations, Lightheadedness, Dizziness, Near Syncope, Syncope Respiratory: Denies: Cough, Sputum Production, Hemoptysis Gastrointestinal: Reports: Abdominal Discomfort. Denies: Hematemesis, Hematochezia, Melena Genitourinary: Denies: Dysuria, Hematuria Subjectve: This is a 53-year-old white female who is now status post gynecologic surgery who appears to be resting reasonably comfortably with no acute cardiovascular complaints. Objective: Vital Signs Temp Pulse Resp BP Pulse Ox 99.7 F H 93 18 112/63 96 02/24/19 17:21 02/24/19 17:39 02/24/19 17:21 02/24/19 17:39 02/24/19 17:21 Oxygen Flow Rate (L/min) 6 Oxygen Delivery Method Room Air Weight: 197 lb 12.074 oz Body Mass Index (BMI) 30.9 Intake and Output for Last 24 Hours 02/22/19 02/23/19 02/24/19 23:59 23:59 23:59 Intake Total 2266.0 / 2266.0 Output Total 420 / 420 Balance 1846.0 / 1846.0 General: Awake, Alert, Oriented x 3, Cooperative, No Acute Distress HEENT: Atraumatic, Normocephalic, PERRL, EOMI, Sclera Non Icteric Oral: Moist Mucosa Neck: Supple, Good ROM, No JVD Lungs: Clear to auscultation Cardiovascular: Regular Rhythm, Premature Ectopic Beats, Normal S1, Normal S2 Vascular: No Carotid Bruits Abdomen: Bowel Sounds Present, Soft Extremities: No edema Neurological: No Focal Motor or Sensory Deficit Psych/Mental Status: Appropriate 02/24/19 09:15: PT 14.0, INR 1.1, APTT 30.0 02/24/19 15:35: Sodium 141, Potassium 4.3, Chloride 109 H, Carbon Dioxide 22.0, Anion Gap 10, BUN 10, Creatinine 1.09 H, Est GFR (MDRD) Af Amer 67, Est GFR (MDRD) Non-Af 55 L, BUN/Creatinine Ratio 9.2 L, Glucose 136 H, Calcium 7.8 L, Magnesium 2.6, Troponin I < 0.015 Rhythm: Sinus rhythm; PVCs EKG: As noted above Echocardiogram: 10-08-2016: The left ventricle was normal with an LVEF of 65% with trivial TR and trivial [place] and an estimated RV systolic pressure of 23 mmHg Stress Test: [place] stress echocardiogram: 02-04-19: Considered negative for evidence of myocardial ischemia; PVCs were noted in the infusion phase as well as the recovery phase Cardiac Cath: 01-12-15: Left ventricle reported normal with a normal LVEDP; mild nonobstructive CAD of the LAD midportion (30% stenosis) with the remainder of the vessels demonstrating no significant disease. Holter monitor: 12-08-16: Sinus rhythm with occasional PACs and frequent PVCs and patterns compatible with ventricular couplets/triplets; ventricular bigeminy/trigeminy; wide-complex runs; with no activity or symptoms recorded EPS: The patient states this was performed at [facility] and was considered a lengthy procedure and unfortunately unsuccessful with respect to complete ablation of her underlying ventricular ectopy Assessment/Plan 1. PVCs/paroxysmal ventricular tachycardia The patient has undergone extensive cardiovascular evaluation for this diagnosis. The patient has been treated medically. Apparently she has had improvement with calcium channel antagonist therapy. At the present time she will continue to be monitored while she recuperates from her gynecologic surgery. She will be restarted on her calcium channel antagonist therapy. She does not appear to require, barring unforeseen events, additional cardiovascular diagnostic studies or therapeutic intervention at this time. 2. Status post EPS/RFA Again she is undergone extensive cardiovascular evaluation which included EPS/RFA. This was reported as unsuccessful with respect to complete ablation of her ventricular ectopy. She was delegated to medical management. She reportedly has had improvement with calcium channel antagonist therapy. This will be continued. She will continue to be monitored as she recuperates from her surgical procedure. 3. CAD She has a history of non-angiographically significant appearing CAD. She does need to continue risk factor evaluation care as deemed appropriate. At the moment, barring unforeseen events, it does not appear that she has experienced an acute postoperative adverse cardiovascular event and thus does not require additional cardiac diagnostic studies or therapeutic intervention. 4. Hyperlipidemia The patient will need to continue risk factor evaluation care as deemed appropriate. 5. Hypertension The patient's blood pressure can be followed. Her medications can be adjusted as deemed appropriate. Comment: The patient's case was discussed and reviewed with the patient and her family members present. This note was generated using a voice recognition system and there may be incorrect words, spelling or punctuation that were not noted when reviewing the office note prior to saving.
[2019-02-24] MEDS: Albuterol 2.5 MG/3 ML VIAL.NEB. INHALATION (19:10)
[2019-02-24] MEDS: Budesonide Respules 0.5 MG/2 ML AMPUL.NEB. INHALATION (19:10)
[2019-02-24] MEDS: Lisinopril 20 MG Tablet PO (22:21)
[2019-02-24] MEDS: Atorvastatin Calcium 10 MG Tablet 5 MG PO (22:28)
[2019-02-25] VITALS (7 sets, daily range): BP systolic 133–139; BP diastolic 56–76; PULSE 80–106; RESP 18; TEMP 36.3–36.9; O2SAT 95–99
[2019-02-25] MEDS: Acetaminophen 500 MG Tablet 1000 MG PO ×2 (00:49→06:34)
[2019-02-25] MEDS: Ketorolac 30 MG/ML Syringe IV ×2 (00:54→06:35)
[2019-02-25 06:38] LABS: Hematocrit 37.3 % (37-47); Hemoglobin 12.4 g/dL (12.0-15.0); Mean Corp Hgb Conc 33.2 g/dL (32-36); Mean Corpuscular Hgb 30.8 pg (27.0-32.0); Mean Corpuscular Volume 92.8 fL (81-99); Platelet Count 210 K/mm3 (150-450); Red Blood Count 4.02 M/mm3 (4.2-5.4); White Blood Count 12.3 K/mm3 (4.4-11.0)
[2019-02-25 06:51] LABS: Anion Gap 10 (5-15); BUN 13 mg/dL (7-18); BUN/Creat Ratio 14.1 RATIO (10-20); Calcium,Total 8.1 mg/dL (8.5-10.1); Chloride 106 mmol/L (98-107); Creatinine, Serum 0.92 mg/dL (0.55-1.02); EST Glomerular Filtration Rate 67 mL/min (>60); Est Glom Filt Rate - Afr Amer 81 mL/min (>60); Estimated Creatinine Clearance 67.19 ml/min; Glucose 114 mg/dL (74-106); Potassium 4.3 mmol/L (3.5-5.1); Sodium Level 139 mmol/L (136-145)
[2019-02-25] MEDS: Levothyroxine 100 MCG Tablet PO (06:57)
[2019-02-25] MEDS: Budesonide Respules 0.5 MG/2 ML AMPUL.NEB. INHALATION (07:29)
[2019-02-25] MEDS: Albuterol 2.5 MG/3 ML VIAL.NEB. INHALATION (07:29)
--- NOTE | 2019-02-25 08:10 | PN.OBGYN_ITS ---
Subjective: patient recovering well, denies CP, SOB, N, or V. patient is ambulating, voiding ,tolerating adequate po, and pain is controlled with oral medications. - Physical Exam General: Alert, Oriented x3 Lungs: Clear to auscultation Cardiovascular: Regular rate, Regular Rhythm Abdomen: Soft, Non Tender Vital Signs Temp Pulse Resp BP Pulse Ox 97.7 F L 90 18 135/70 H 97 02/25/19 06:39 02/25/19 07:29 02/25/19 07:29 02/25/19 06:39 02/25/19 07:29 Oxygen Flow Rate (L/min) 6 Oxygen Delivery Method Room Air Weight: 197 lb 12.074 oz Body Mass Index (BMI) 30.9 Intake and Output for Last 24 Hours 02/23/19 02/24/19 02/25/19 23:59 23:59 23:59 Intake Total 2266.0 / 2666.0 2284.67 / 2284.67 Output Total 420 / 1120 1350 / 1350 Balance 1846.0 / 1546.0 934.67 / 934.67 Laboratory Tests Past 24 Hrs 02/24/19 02/24/19 02/24/19 09:15 09:16 09:30 WBC RBC Hgb Hct MCV MCH MCHC RDW Std Deviation RDW Coeff of Rohan Plt Count MPV PT 14.0 INR 1.1 APTT 30.0 Sodium Potassium Chloride Carbon Dioxide Anion Gap BUN Creatinine Estim Creat Clear Calc Est GFR (MDRD) Af Amer Est GFR (MDRD) Non-Af BUN/Creatinine Ratio Glucose Calcium Magnesium Troponin I Albumin TSH Urine Test Negative Blood Type B NEGATIVE Antibody Screen NEGATIVE 02/24/19 02/25/19 02/25/19 15:35 05:45 05:45 WBC 12.3 H RBC 4.02 L Hgb 12.4 Hct 37.3 MCV 92.8 MCH 30.8 MCHC 33.2 RDW Std Deviation 41.0 RDW Coeff of Rohan 12.0 Plt Count 210 MPV 12.0 PT INR APTT Sodium 141 139 Potassium 4.3 4.3 Chloride 109 H 106 Carbon Dioxide 22.0 23.0 Anion Gap 10 10 BUN 10 13 Creatinine 1.09 H 0.92 Estim Creat Clear Calc 56.71 67.19 Est GFR (MDRD) Af Amer 67 81 Est GFR (MDRD) Non-Af 55 L 67 BUN/Creatinine Ratio 9.2 L 14.1 Glucose 136 H 114 H Calcium 7.8 L 8.1 L Magnesium 2.6 Troponin I < 0.015 Albumin 3.4 TSH 2.19 Urine Test Blood Type Antibody Screen POC Glucose 02/24/19 09:34 POC Glucose 159 H Medical Necessity - Tobacco Use Smoking Status: Former smoker Tobacco Use: Non-smoker Assessment/Plan All Active Problems (Last Reviewed 02/16/19 @ 10:40 by Pato Ching DO) Pre-operative cardiovascular examination (Acute) Abnormal uterine bleeding (Acute) Uterine fibroid (Acute) History of tonsillectomy (Resolved) H/O tubal ligation (Resolved) CHIOMA plantar fascitis repair (Resolved) History of left heart catheterization (Resolved 01/20/15) History of electrophysiologic study (Acute) History of colonoscopy (Acute) Contusion of left forearm, initial encounter (Acute) Sprain of left thumb (Acute) patient is s/p [facility] POD 1 1. routine ERAS protocol postop care- increase ambulation, encourage oral intake and oral control of pain. lovenox and scds for dvt prophylaxis, patient stable for discharge to home. s/p cardio consult- stable
[2019-02-25] MEDS: hydroCHLOROthiazide 25 MG Tablet PO (08:32)
[2019-02-25] MEDS: Lisinopril 20 MG Tablet PO (08:32)
[2019-02-25] MEDS: Meloxicam 15 MG Tablet PO (08:33)
[2019-02-25] MEDS: dilTIAZem CD 120 MG Capsule PO (08:33)
[2019-02-25] MEDS: Loratadine 10 MG Tablet PO (08:34)
[2019-02-25] MEDS: Docusate Sodium 100 MG Capsule PO (08:34)
[2019-02-25] MEDS: Enoxaparin 40 MG/0.4 ML Syringe SC (08:35)
[2019-02-25] MEDS: Mesalamine 1.2 GM Tablet 2.4 GM PO (08:35)
[2019-02-25] MEDS: Pantoprazole Sodium 40 MG Tablet PO (08:35)
--- NOTE | 2019-02-25 09:39 | DCINST_ITS ---
Discharge Diet: No Restrictions Discharge Activity: Return to Normal Activity, May Not Drive, May Shower May resume sexual activity in: 6-8 weeks Call your doctor if your incision/area has: Continuous Slow Oozing, Sudden Increased Bleeding, Increased Pain/ Swelling, Increased Redness, Foul Smelling Discharge Call your doctor if you observe: Fever of 101 or Higher, Inability to urinate, Inability to have a bowel movement, Using more than one pad per hour Allergies/Adverse Reactions: Allergies amoxicillin Allergy (Intermediate, Verified 02/24/19 09:49) Hives Penicillins Allergy (Intermediate, Verified 02/24/19 09:49) Hives erythromycin base Allergy (Verified 02/24/19 09:49) hives/rash Medications to take at Discharge Aspirin [Aspirin, Baby] 81 mg PO DAILY@0800 01/11/15 potassium chloride ER 20 mEq tablet,extended release 20 meq PO QDAY #90 tab 04/20/18 albuterol sulfate HFA 90 mcg/actuation aerosol inhaler 1 - 2 puff INHALATION Q6H PRN PRN #8.5 g 07/01/18 cetirizine 10 mg tablet 10 mg PO DAILY 07/12/18 lansoprazole 30 mg capsule,delayed release 30 mg PO DAILY #90 cap 08/05/18 lisinopril 20 mg tablet 20 mg PO QHS #90 tab 12/21/18 lisinopril 20 mg-hydrochlorothiazide 25 mg tablet 1 tab PO DAILY #90 tab 12/21/18 meloxicam 15 mg tablet 15 mg PO QODAY #90 tab 12/21/18 diltiazem ER 120 mg tablet,extended release 24 hr 120 mg PO DAILY #30 tab 02/16/19 levothyroxine 100 mcg tablet 100 mcg PO DAILY #90 tab 02/16/19 simvastatin 10 mg tablet 10 mg PO QHS #90 tab 02/16/19 Diclofenac Sodium [Voltaren] 2 g TOPICAL .twice daily PRN 02/18/19 Fluticasone Propion/Salmeterol [Wixela 250-50 Inhub] 1 puff IH DAILY 02/18/19 Mesalamine 2.4 g PO QDAY 02/18/19 norethindrone acetate 5 mg tablet 5 mg PO BID #7 tab 02/23/19 Oxycodone HCl/Acetaminophen [Percocet 5-325] 1 - 2 tab PO Q4H PRN PRN 7 Days #15 tab 02/24/19 The following prescriptions were given: Oxycodone HCl/Acetaminophen [Percocet 5-325] 1 - 2 tab PO Q4H PRN PRN 7 Days #15 tab PRN Reason: Pain Transmission Status: Received by [facility] Primary Care Physician: Pato Ching DO [Primary Care Provider] - Test Results: Test results from this visit will be discussed in further detail at your follow- up appointment, if applicable. Please Follow Up With: Hillary Bailey MD - [phone]
--- NOTE | 2019-02-25 10:10 | PCM.PN.CARD ---
Subjectve: Patient seen and examined this morning. Telemetry showed normal sinus rhythm with very rare PVCs. No chest pain or anginal symptoms. Awaiting discharge. Objective: Vital Signs Temp Pulse Resp BP Pulse Ox 97.7 F L 91 18 135/70 H 97 02/25/19 06:39 02/25/19 08:33 02/25/19 07:29 02/25/19 06:39 02/25/19 07:29 Oxygen Flow Rate (L/min) 6 Oxygen Delivery Method Room Air Weight: 197 lb 12.074 oz Body Mass Index (BMI) 30.9 Intake and Output for Last 24 Hours 02/23/19 02/24/19 02/25/19 23:59 23:59 23:59 Intake Total 2266.0 / 2666.0 2284.67 / 2284.67 Output Total 420 / 1120 2550 / 2550 Balance 1846.0 / 1546.0 -265.33 / -265.33 General: Awake, Alert, Oriented x 3 HEENT: PERRL, EOMI, Sclera Non Icteric Neck: Supple, Good ROM, No Lymph Node Enlargement Lungs: Clear to auscultation Cardiovascular: Regular Rhythm, Normal S1, Normal S2, No Murmurs, No Rubs, No Gallops Vascular: No Carotid Bruits, Normal Femoral Pulses, Normal Radial Pulses, Normal Dorsalis Pedal Pulse, Normal Posterior Tibial Pulses Abdomen: Bowel Sounds Present, Soft, Non Tender, No HSM, No Organomegaly Extremities: No Cyanosis, No Clubbing, No edema Neurological: No Focal Motor or Sensory Deficit 02/24/19 09:15: PT 14.0, INR 1.1, APTT 30.0 02/24/19 15:35: Sodium 141, Potassium 4.3, Chloride 109 H, Carbon Dioxide 22.0, Anion Gap 10, BUN 10, Creatinine 1.09 H, Est GFR (MDRD) Af Amer 67, Est GFR (MDRD) Non-Af 55 L, BUN/Creatinine Ratio 9.2 L, Glucose 136 H, Calcium 7.8 L, Magnesium 2.6, Troponin I < 0.015 02/25/19 05:45: WBC 12.3 H, RBC 4.02 L, Hgb 12.4, Hct 37.3, MCV 92.8, MCH 30.8, MCHC 33.2, Plt Count 210, MPV 12.0 02/25/19 05:45: Sodium 139, Potassium 4.3, Chloride 106, Carbon Dioxide 23.0, Anion Gap 10, BUN 13, Creatinine 0.92, Est GFR (MDRD) Af Amer 81, Est GFR (MDRD) Non-Af 67, BUN/Creatinine Ratio 14.1, Glucose 114 H, Calcium 8.1 L Rhythm: EKG: ECHO: Stress Test: Cardiac Cath: PCI: CT Surgery: Holter monitor: EPS: PPM: CXR: Chest CT Scan: Medical Necessity - Tobacco Use Smoking Status: Former smoker Tobacco Use: Non-smoker Assessment/Plan 1. PVCs: Patient had PVCs and ventricular bigeminy apparently after surgery, which is markedly calm down since yesterday. She is asymptomatic at this time and has had an extensive cardiac work-up to evaluate her coronary anatomy. She has had no anginal symptoms. Ironically, her PVCs appear to be improved with calcium channel ariel therapy, and this was restarted this morning. Telemetry overnight showed normal sinus rhythm with very rare PVCs. I recommend the patient continue her current antihypertensive and calcium channel ariel therapy, and agree that she may be discharged today. No additional cardiac work-up needed at this time. She will follow-up with Dr. Garcia going forward. 2. Thank you very much for the opportunity to participate in the cardiac care of your patient. Code Visit Inpatient E&M: 80534 Subs Hosp L2
[2019-02-25] MEDS: oxyCODONE 5 MG Tablet PO (10:24)
== END 2019-02-25 12:00 | disposition home or self-care (01) ==
LOC: SDC 08:55 → AC 08:56 → MS3 10:49
PROVIDERS: Anesthesiology; Family Provider Family Medicine; PCP Family Medicine; Referring Provider Obstetrics & Gynecology; Visit Provider Obstetrics & Gynecology
PROC: 0UT9FZZ Resection of Uterus, Via Natural or Artificial Opening With Percutaneous Endoscopic Assistance (ICD-10-PCS; CPT 52000; principal; 2019-02-24 10:35)
DX: N72 Inflammatory disease of cervix uteri (principal); N84.0 Polyp of corpus uteri; D25.1 Intramural leiomyoma of uterus; N83.8 Other noninflammatory disorders of ovary, fallopian tube and broad ligament; I47.2 Ventricular tachycardia; N80.9 Endometriosis, unspecified; M19.90 Unspecified osteoarthritis, unspecified site; J45.909 Unspecified asthma, uncomplicated; K21.9 Gastro-esophageal reflux disease without esophagitis; E03.9 Hypothyroidism, unspecified; I10 Essential (primary) hypertension; E78.5 Hyperlipidemia, unspecified; I25.10 Atherosclerotic heart disease of native coronary artery without angina pectoris; G47.33 Obstructive sleep apnea (adult) (pediatric); E07.9 Disorder of thyroid, unspecified; Z87.891 Personal history of nicotine dependence; Z79.51 Long term (current) use of inhaled steroids; Z79.82 Long term (current) use of aspirin; Z79.899 Other long term (current) drug therapy
CPT/HCPCS: 00840; 52000; 58554; 36415; 80048; 81025; 82040; 82962; 83735; 84443; 84484; 85027; 85610; 85730; 86850; 86900; 86901; 88307; 93005; 94640; 94762; J7120; J2405

== ENCOUNTER 2019-03-10 09:48 | Inpatient (IN) | payer OTHER, SELFPAY ==
[2019-03-10] VITALS (8 sets, daily range): BP systolic 110–122; BP diastolic 50–73; PULSE 97–113; RESP 16–20; TEMP 36.4–38.2; O2SAT 97–99; BMI 30.9; BMI 33.5; BMI 33.6; BMI 29.2
--- NOTE | 2019-03-10 09:56 | EKG12_ITS ---
Test Reason : NAUSEA N VOMIT Blood Pressure : / mmHG Vent. Rate : 109 BPM Atrial Rate : 109 BPM P-R Int : 148 ms QRS Dur : 094 ms QT Int : 326 ms P-R-T Axes : 053 060 038 degrees QTc Int : 439 ms Sinus tachycardia with Premature atrial complexes with Aberrant conduction Otherwise normal ECG Confirmed by LIV TALLEY, CHRISTOPHER ([id number]), field map editor LC ARTHUR ([id number]) on 03/16/2019 10:55:32 AM Referred By: MARTINEZ Confirmed By:ASTRID PECK MD
--- NOTE | 2019-03-10 09:58 | CT_ITS ---
STUDY: CT ABDOMEN AND PELVIS WITHOUT CONTRAST REASON FOR EXAM: Female, 53 years old. Nausea and vomiting. Recent hysterectomy. RADIATION DOSAGE (If Supplied By Facility): CTDIvol = ( 11.32 ) mGy, DLP = ( 622.40 ) mGycm TECHNIQUE: Transaxial images were obtained from the dome of the diaphragm to the symphysis pubis without oral contrast, and without intravenous contrast. Sagittal and coronal images were reconstructed. Individualized dose optimization techniques were used for this CT. COMPARISON: None. FINDINGS: The visualized lung bases are unremarkable. The visualized portions of the heart are within normal limits. There is decreased attenuation of the liver consistent with steatosis. Hepatomegaly. Increased attenuation within the gallbladder lumen. This may represent either sludge or small gallstones. There is mild splenomegaly. Normal pancreas. Normal bilateral adrenal glands. There is a 4.5 cm cyst in the lower pole of the right kidney. Normal left kidney. Normal visualized stomach. Normal small intestine. Normal colon. The appendix is visualized and appears normal. There is scattered atherosclerotic calcification of the abdominal aorta, without a demonstrated aneurysm. Normal inferior vena cava. There is borderline retroperitoneal lymphadenopathy with enlarged nodes no greater than 10mm in the short axis diameter. An air-fluid level is seen in the bladder. If there has been no underinflation for a Roberto catheter, fistulous communication should be ruled out. There is evidence of postoperative changes within the pelvic fat. I suggest a repeat examination following intravenous contrast menstruation and delayed imaging of the pelvis for further assessment. There is absence of the uterus consistent with a prior hysterectomy. There is a left-sided inguinal hernia containing adipose tissue. There are diffuse degenerative changes of the visualized lumbar spine. CT/Abdomen/Pelvis without Cont IMPRESSION: A fluid level in the region of the bladder as described. A repeat CT scan of the abdomen and pelvis following IV contrast and delayed imaging is recommended for further assessment. Postoperative changes in the pelvis. Hepatomegaly and diffuse fatty infiltration of the liver. Increased density within the gallbladder suggestive of sludge and/or possible gallstones. Right renal cyst. Electronically Signed: Aryan Masters, at 11:31 EDT , Service support ,
[2019-03-10] MEDS: Ondansetron 4 MG/2 ML Vial IV ×3 (10:16→21:31)
[2019-03-10] MEDS: 0.9% Normal Saline 1,000 ML 125 ML IV ×2 (10:16→18:26)
--- NOTE | 2019-03-10 10:17 | ED.DCSUM_ITS ---
History of Present Illness Chief Complaint: Nausea/Vomiting Informant: Patient Onset: Today Narrative: Vomiting diarrhea, the patient which is about 2 weeks status post laparoscopic hysterectomy that was uncomplicated indicates she has history of colitis that causes copious diarrhea times but usually is well controlled with her usual meds, she been taking those meds and has persistent diarrhea and vomiting, she indicates she is had no exposure to antibiotics sick individuals, she is had prior colonoscopies that were generally unremarkable, she was seen today by her [facility] [employer] providers and sent to the emergency department no fevers urine outputs been unremarkable the stool is watery the vomitus stomach content Past Medical History - Allergies and Home Meds Allergies/Adverse Reactions: Allergies amoxicillin Allergy (Intermediate, Verified 03/10/19 09:50) Hives Penicillins Allergy (Intermediate, Verified 03/10/19 09:50) Hives erythromycin base Allergy (Verified 03/10/19 09:50) hives/rash Primary Care Physician: Pato Ching DO [Primary Care Provider] - Past Medical History: - - Blood pressure disorder, recent laparoscopic hysterectomy Smoking Status: Former smoker Review of Systems General: Denies: Chills, Fever, Sweats Eyes: Denies: Visual changes - bilaterally, Diplopia ENT: Denies: Rhinorrhea, Sore throat Cardiovascular: Denies: Chest pain, Palpitations Respiratory: Denies: Dyspnea, Cough, Dyspnea on exertion Gastrointestinal: Reports: Abdominal pain, Nausea, Vomiting. Denies: Diarrhea, Melena, Hematochezia Genitourinary: Denies: Dysuria, Hematuria, Frequency Musculoskeletal: Denies: Back pain, Extremity Pain Skin: Denies: Rash, Wounds Neurological: Denies: Headache, Weakness, Numbness Physical Exam Vital Signs/Narrative: Vital Signs Temp Pulse Resp BP Pulse Ox 03/10/19 09:50 98.9 F 105 H 20 H 111/73 99 General: Well nourished, Well developed, No Acute Distress Head: Normocephalic, Atraumatic Eyes: Perrl, EOMI ENT: Moist mucous membranes, No rhinorrhea Neck: Supple, Nontender Cardiovascular: Regular rate, Regular rhythm, No murmurs Respiratory: No distress, CTA bilaterally, Chest nontender Abdomen: Soft, Nondistended, Normal bowel sounds, - - She has a very mild nonspecific diffuse abdominal pain that is actually improving since her postoperative status, the port sites are unremarkable without drainage there is no rebound or guarding no fullness Back: Nontender, Normal Inspection Extremities: Nontender, No edema Skin: Normal color, No rash Neurological: Alert, Oriented x3, Cranial nerves II-XII grossly intact, Normal Strength, Normal Sensation Psychological: Normal affect, Normal Mood Diagnostic/Tx/Re-eval - Medical Decision Making Screening labs IV fluids pain management CT scan stool for analysis and C. difficile Patient's white count returns at 30,000, the abdominal CT shows, hysterectomy, and what appears to be fluid in and around the bladder etiology of the fluid is unclear, radiology recommends CT imaging with contrast delayed images of the pelvis, creatinine returns at 2.5 was normal 2 weeks ago so contrast cannot be given, the patient's been medicated her lactate returned to 1.3 she started on IV antibiotics, we spoke with Dr. Robertson on-call for Dr. Robel Alvarez he asked that we contact consult Dr. Newby, spoke with Dr. Newby and he will be down to see the patient shortly to determine further management options discussed all the above with the patient and the concept of pelvic infection pelvic abscess or other causes to explain all the above and the potential need for either admission or transfer to another facility and she understands Admit stable pending surgery evaluation Final impression Leukocytosis, pelvic fluid or abscess, acute kidney injury, status post laparoscopic hysterectomy, surgery evaluation ED Disposition - Plan for ED Patient: Diagnosis: Pelvic fluid abscess ,oj Referrals: Pato Ching DO [Primary Care Provider] -
[2019-03-10 10:18] LABS: Absolute Lymphocyte Count 1.01 X10^3/uL (0.83-4.51); Basophil# 0.09 X10^3/uL; Basophil% 0.3 % (0-1); Eosinophil# 0.01 X10^3/uL; Hemoglobin 13.2 g/dL (12.0-15.0); Lymphocyte # 1.01 X10^3/ul (4.0); Lymphocyte % 3.5 % (19-41); Mean Corp Hgb Conc 33.8 g/dL (32-36); Mean Corpuscular Hgb 30.4 pg (27.0-32.0); Mean Corpuscular Volume 89.9 fL (81-99); Mean Platelet Vol. 10.9 fl (6.2-12.0); Monocyte# 1.17 X10^3/uL; Monocyte% 4.1 % (0-10); NRBC Flagged by Analyzer 0 % (0-5); Neutrophil # 25.97 X10^3/uL (2.7-7.7); Neutrophil % 90.6 % (47-70); POSITIVE DIFFERENTIAL YES; Platelet Count 422 K/mm3 (150-450); RBC Distribution Width CV 12.1 % (11.6-14.6); RBC Distribution Width SD 40.2 fl (35.1-43.9); Red Blood Count 4.34 M/mm3 (4.2-5.4); White Blood Count 28.7 K/mm3 (4.4-11.0)
[2019-03-10 10:23] LABS: Differential Indicated SCAN CRITERIA MET
[2019-03-10 10:40] LABS: Albumin, Serum 3.1 g/dL (3.2-5.0); BUN 29 mg/dL (7-18); BUN/Creat Ratio 11.8 RATIO (10-20); Creatinine, Serum 2.46 mg/dL (0.55-1.02); EST Glomerular Filtration Rate 22 mL/min (>60); Est Glom Filt Rate - Afr Amer 26 mL/min (>60); Estimated Creatinine Clearance 25.13 ml/min; Glucose 125 mg/dL (74-106); Protein, Total 7.9 g/dL (6.4-8.2)
[2019-03-10 10:41] LABS: ALB/GLOB Ratio 0.6 RATIO (0.9-2.4); AST(SGOT) 18 U/L (15-37); Alanine Aminotransfer ALT/SGPT 34 U/L (13-56); Alkaline Phosphatase 132 U/L (45-117); Anion Gap 13 (5-15); Calcium,Total 9.1 mg/dL (8.5-10.1); Chloride 94 mmol/L (98-107); Globulin 4.8 g/dL (2.2-4.2); Lipase 262 U/L (73-393); Potassium 3.3 mmol/L (3.5-5.1); Sodium Level 129 mmol/L (136-145)
[2019-03-10 11:13] LABS: Red Blood Cells-Urine 0 SEEN /hpf (0-5)
[2019-03-10 11:21] LABS: Glucose, Dipstick Normal (Normal); Ketone-Dipstick Negative (Negative); Leukocyte Esterase-Dipstick 500 /ul (Negative); Nitrite-Dipstick Negative (Negative); Occult Blood-Urine 25 /ul (Negative); Protein-Dipstick 100 mg/dl (Negative); Specific Gravity, Urine 1.015 (1.002-1.030); Urine Clarity Sl. Cloudy (Clear); Urine Urobilinogen Normal (Normal)
[2019-03-10 11:25] LABS: Color, Urine DARK YELLOW (Yellow); Urine Bilirubin Dipstick 1 mg/dL (Negative)
[2019-03-10 11:29] LABS: White Blood Cells 5-10 SEEN /hpf (0-5)
[2019-03-10 11:32] LABS: Bacteria 2+ /hpf (None Seen); Calcium Oxalate Crystals Ur 1+ /hpf (<or=2+); Fine Granular Cast- Urine 0-5 SEEN /lpf (0-5); Hyaline Cast 0-5 SEEN /lpf (0-5); Mucous, Urine 1+ /hpf (<or=2+); Squamous Epithelial Cells - UA 0-5 SEEN /hpf (5-10)
--- NOTE | 2019-03-10 11:40 | ED.RN ---
PT OFFERED MORPHINE ORDERED AND PT REFUSES STATING THAT SHE IS CURRENTLY NOT HAVING PAIN. ORDER WILL BE CANCELLED AT THIS TIME AND WILL REQUEST FURTHER MEDICATION NEEDED.
--- NOTE | 2019-03-10 11:45 | RAD_ITS ---
STUDY: X-RAY CHEST REASON FOR EXAM: Female, 53 years old. Fever. Nausea and vomiting. TECHNIQUE: Single AP portable view of the chest. COMPARISON: Comparison is made with prior study dated January 10, 2015. FINDINGS: The lungs are clear and expanded. There is no demonstrated pleural abnormality. Normal size heart. Normal mediastinum and trace. Normal visualized pulmonary arteries. Normal visualized aortic arch and descending thoracic aorta. Normal visualized thoracic spine. Normal visualized ribs, clavicles, and shoulders. There is no demonstrated abnormality of the visualized soft tissue structures of the upper abdomen. RAD/Chest 1 View (Portable) IMPRESSION: Normal x-ray examination of the chest. Electronically Signed: Aryan Masters, at 12:25 EDT , Service support ,
--- NOTE | 2019-03-10 12:25 | US_ITS ---
STUDY: ULTRASOUND OF THE FEMALE PELVIS - COMPLETE REASON FOR EXAM: Female, 53 years old. Status post hysterectomy and possible pelvic abscess. LMP: Status post hysterectomy. TECHNIQUE: Transabdominal and Transvaginal TECHNICAL QUALITY: Adequate. COMPARISON: Comparison is made with prior CT scan abdomen and pelvis done earlier in the day. FINDINGS: The patient is status post hysterectomy. There is a 12.5 cm x 8.2 cm x 5.4 cm complex cystic structure in the pelvis corresponding to the CT findings. This is suspicious for abscess collection. The right ovary is non-visualized. The left ovary is non-visualized. US/Pelvic (Non ) IMPRESSION: 12.5 cm x 0.2 cm x 5.4 cm complex cystic structure in the mid pelvis. Abscess collection should be ruled out. Electronically Signed: Aryan Masters, at 14:57 EDT , Service support ,
[2019-03-10 12:30] LABS: Lactic Acid 1.3 mmol/L (0.4-2.0)
[2019-03-10] MEDS: Ceftriaxone 1 GM/50 ML BAG IV (13:03)
[2019-03-10] MEDS: 0.9% Normal Saline 1,000 ML 999 ML IV (13:12)
[2019-03-10] MEDS: metroNIDAZOLE 500 MG/100 ML BAG 100 MG IV (15:08)
--- NOTE | 2019-03-10 16:16 | CON.PCM_ITS ---
Problem List (1) Nausea & vomiting Status: Acute Qualifiers: Vomiting Intractability: non-intractable (2) Abnormal CT of the abdomen Status: Acute Reason for Consult Date of Consultation: 03/10/19 History of Present Illness: The patient is a 53 year old F who presents to the emergency department after seeing Aruna Bruno in the office patient is 2 week postop LAVH, BS, cysto. States has been vomiting X 3 days, having chills, not keeping fluids down and not urinating. some diarrhea. She is not complaining of any abdominal pain at the present time. She is tired of feeling sick. Patient is noted to have a white count of 28,000 vaginal ultrasound shows a 12 cm fluid collection posterior to the bladder. This was not well seen on the CAT scan. Her labs reveal that she is hyponatremic hypokalemic and has significant rise in her BUN and creatinine. Past Medical History Past Medical History (Chronic Problems): Chronic Problems (Last Reviewed 03/10/19 @ 16:17 by Dajuan Newby MD) Trochanteric bursitis of left hip (Chronic) Refer to ortho for injection Obstructive sleep apnea (adult) (pediatric) (Chronic) Arthritis (Chronic) Colitis (Chronic) Thyroid disease (Chronic) Seasonal allergies (Chronic) Chronic vasomotor rhinitis (Chronic) Thoracic back pain (Chronic) Asthma (Chronic) Acid reflux (Chronic) Hypothyroid (Chronic) Status post radiofrequency ablation (RFA) operation for arrhythmia (Chronic 02/05/17) Premature ventricular contractions (PVCs) (VPCs) (Chronic) HTN (hypertension) (Chronic) Dyspnea on exertion (Chronic) HLD (hyperlipidemia) (Chronic) Atherosclerotic heart disease of [place] coronary artery without angina pectoris (Chronic) Mild nonobstructive disease of mid LAD per [facility] 01/12/15 Paroxysmal ventricular tachycardia (Chronic) EPS for RVOT PVC's w/ VT RFA 02/05/2017 Fatigue (Chronic) Obstructive sleep apnea (adult) (pediatric) (Chronic) Medical History: Medical History (Last Reviewed 03/10/19 @ 16:17 by Dajuan Newby MD) Pre-operative cardiovascular examination (Acute) Z01.810 Abnormal uterine bleeding (Acute) N93.9 simple hyperplasia, plan LAVH BS cysto Uterine fibroid (Acute) D25.9 Arthritis (Chronic) M19.90 Colitis (Chronic) K52.9 Thyroid disease (Chronic) E07.9 Seasonal allergies (Chronic) J30.2 Asthma (Chronic) J45.909 Acid reflux (Chronic) K21.9 Hypothyroid (Chronic) E03.9 Premature ventricular contractions (PVCs) (VPCs) (Chronic) I49.3 HTN (hypertension) (Chronic) I10 Dyspnea on exertion (Chronic) R06.09 HLD (hyperlipidemia) (Chronic) E78.5 Atherosclerotic heart disease of [place] coronary artery without angina pectoris (Chronic) I25.10 Mild nonobstructive disease of mid LAD per [facility] 01/12/15 Paroxysmal ventricular tachycardia (Chronic) I47.2 EPS for RVOT PVC's w/ VT RFA 02/05/2017 Fatigue (Chronic) R53.83 Obstructive sleep apnea (adult) (pediatric) (Chronic) G47.33 Allergies amoxicillin Allergy (Intermediate, Verified 03/10/19 09:50) Hives Penicillins Allergy (Intermediate, Verified 03/10/19 09:50) Hives erythromycin base Allergy (Verified 03/10/19 09:50) hives/rash Home Medications: Ambulatory Orders Medication Instructions Recorded Aspirin [Aspirin, Baby] 81 mg PO DAILY@0800 01/11/15 potassium chloride ER 20 mEq 20 meq PO QDAY #90 tab 04/20/18 tablet,extended release albuterol sulfate HFA 90 1 - 2 puff INHALATION Q6H PRN PRN 07/01/18 mcg/actuation aerosol inhaler #8.5 g cetirizine 10 mg tablet 10 mg PO DAILY 07/12/18 lansoprazole 30 mg capsule,delayed 30 mg PO DAILY #90 cap 08/05/18 release lisinopril 20 mg tablet 20 mg PO QHS #90 tab 12/21/18 lisinopril 20 1 tab PO DAILY #90 tab 12/21/18 mg-hydrochlorothiazide 25 mg tablet meloxicam 15 mg tablet 15 mg PO QODAY #90 tab 12/21/18 diltiazem ER 120 mg 120 mg PO DAILY #30 tab 02/16/19 tablet,extended release 24 hr levothyroxine 100 mcg tablet 100 mcg PO DAILY #90 tab 02/16/19 simvastatin 10 mg tablet 10 mg PO QHS #90 tab 02/16/19 Diclofenac Sodium [Voltaren] 2 g TOPICAL .twice daily PRN 02/18/19 Fluticasone Propion/Salmeterol 1 puff IH DAILY 02/18/19 [Wixela 250-50 Inhub] Mesalamine 2.4 g PO QDAY 02/18/19 norethindrone acetate 5 mg tablet 5 mg PO BID #7 tab 02/23/19 Surgical History: Surgical History (Last Reviewed 03/10/19 @ 16:17 by Dajuan Newby MD) History of tonsillectomy (Resolved) Z98.890, Z90.89 H/O tubal ligation (Resolved) Z98.51 CHIOMA plantar fascitis repair (Resolved) History of left heart catheterization (Resolved) Onset Date: 01/20/15 Z98.890 01/12/2015 History of electrophysiologic study (Acute) Z98.890 History of colonoscopy (Acute) Z98.890 10/28/13 - Ulcerative Colitis, 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 Denies: Abdominal Pain Genitourinary: Reports: Dysuria Patient Problems: Active and Suspected Problems (Last Reviewed 03/10/19 @ 16:17 by Dajuan Newby MD) Nausea & vomiting (Acute) Abnormal CT of the abdomen (Acute) - Physical Exam General: Alert, Oriented x3 Neck: Supple, No JVD Lungs: Clear to auscultation Cardiovascular: Regular rate, Regular Rhythm, No murmurs Abdomen: Bowel Sounds Present, Soft, Non Tender, Non-Distended Vital Signs Temp Pulse Resp BP Pulse Ox 98.9 F 97 16 114/66 98 03/10/19 09:50 03/10/19 16:00 03/10/19 16:00 03/10/19 16:00 03/10/19 16:00 Oxygen Delivery Method Room Air Weight: 214 lb 8.156 oz Body Mass Index (BMI) 33.5 Intake and Output for Last 24 Hours 03/08/19 03/09/19 03/10/19 23:59 23:59 23:59 Intake Total 1866.42 / 1866.42 Balance 1866.42 / 1866.42 Laboratory Tests Past 24 Hrs 03/10/19 03/10/19 03/10/19 10:06 10:06 11:10 WBC 28.7 H RBC 4.34 Hgb 13.2 Hct 39.0 MCV 89.9 MCH 30.4 MCHC 33.8 RDW Std Deviation 40.2 RDW Coeff of Rohan 12.1 Plt Count 422 MPV 10.9 Immature Gran % (Auto) 1.500 H Neut % (Auto) 90.6 H Lymph % (Auto) 3.5 L [place] % (Auto) 4.1 Eos % (Auto) 0.0 Baso % (Auto) 0.3 Absolute Neuts (auto) 26.0 H Absolute Lymphs (auto) 1.01 Nucleated RBC % 0 Differential Comment COMMENT Sodium 129 L Potassium 3.3 L Chloride 94 L Carbon Dioxide 22.0 Anion Gap 13 BUN 29 H Creatinine 2.46 H Estim Creat Clear Calc 25.13 Est GFR (MDRD) Af Amer 26 L Est GFR (MDRD) Non-Af 22 L BUN/Creatinine Ratio 11.8 Glucose 125 H Lactic Acid Calcium 9.1 Total Bilirubin 0.50 AST 18 ALT 34 Alkaline Phosphatase 132 H Troponin I < 0.015 Total Protein 7.9 Albumin 3.1 L Globulin 4.8 H Albumin/Globulin Ratio 0.6 L Lipase 262 Urine Color DARK YELLOW Urine Clarity Sl. Cloudy Urine pH 5.0 Ur Specific [place] 1.015 Urine Protein 100 H Urine Glucose (UA) Normal Urine Ketones Negative Urine Occult Blood 25 H Urine Nitrite Negative Urine Bilirubin 1 H Urine Urobilinogen Normal Ur Leukocyte Esterase 500 H Urine RBC 0 SEEN Urine WBC 5-10 SEEN Ur Squamous Epith Cells 0-5 SEEN Calcium Oxalate Crystal 1+ Urine Bacteria 2+ Hyaline Casts 0-5 SEEN Fine Granular Casts 0-5 SEEN Urine Mucus 1+ 03/10/19 11:15 WBC RBC Hgb Hct MCV MCH MCHC RDW Std Deviation RDW Coeff of Rohan Plt Count MPV Immature Gran % (Auto) Neut % (Auto) Lymph % (Auto) [place] % (Auto) Eos % (Auto) Baso % (Auto) Absolute Neuts (auto) Absolute Lymphs (auto) Nucleated RBC % Differential Comment Sodium Potassium Chloride Carbon Dioxide Anion Gap BUN Creatinine Estim Creat Clear Calc Est GFR (MDRD) Af Amer Est GFR (MDRD) Non-Af BUN/Creatinine Ratio Glucose Lactic Acid 1.3 Calcium Total Bilirubin AST ALT Alkaline Phosphatase Troponin I Total Protein Albumin Globulin Albumin/Globulin Ratio Lipase Urine Color Urine Clarity Urine pH Ur Specific [place] Urine Protein Urine Glucose (UA) Urine Ketones Urine Occult Blood Urine Nitrite Urine Bilirubin Urine Urobilinogen Ur Leukocyte Esterase Urine RBC Urine WBC Ur Squamous Epith Cells Calcium Oxalate Crystal Urine Bacteria Hyaline Casts Fine Granular Casts Urine Mucus Assessment/Plan All Active Problems (Last Reviewed 03/10/19 @ 16:17 by Dajuan Newby MD) Nausea & vomiting (Acute) Abnormal CT of the abdomen (Acute) Pre-operative cardiovascular examination (Acute) Abnormal uterine bleeding (Acute) Uterine fibroid (Acute) History of tonsillectomy (Resolved) H/O tubal ligation (Resolved) CHIOMA plantar fascitis repair (Resolved) History of left heart catheterization (Resolved 01/20/15) History of electrophysiologic study (Acute) History of colonoscopy (Acute) Contusion of left forearm, initial encounter (Acute) Sprain of left thumb (Acute) At this point I have discussed the case with medicine and they are going to admit her. She needs to be well hydrated to see if we can return her kidney function back to normal. I think placing a Roberto catheter would be a lee choice at this point and she currently is on antibiotics. If her kidney functions can improve and she can undergo another CAT scan with oral contrast providing she can tolerate it and I am hoping that a CT-guided drainage might be of benefit here. However if she was to deteriorate more I am more than likely would have to take her to surgery and do an exploratory laparoscopy and irrigation of the pelvic floor.
--- NOTE | 2019-03-10 16:21 | HP.PCM_ITS ---
Problem List (1) Pelvic abscess Status: Acute (2) Nausea & vomiting Status: Acute Qualifiers: Vomiting Intractability: non-intractable (3) Asthma Status: Chronic Qualifiers: Asthma severity: unspecified severity Asthma persistence: unspecified Asthma complication type: unspecified Qualified Code(s): J45.909 - Unspecified asthma, uncomplicated (4) Hypothyroid Status: Chronic Qualifiers: Hypothyroidism type: unspecified Qualified Code(s): E03.9 - Hypothyroidism, unspecified (5) Premature ventricular contractions (PVCs) (VPCs) Status: Chronic History of Present Illness Date of Admission: 03/10/19 Chief Complaint: Nausea, vomiting, diarrhea - 3 days The patient is a 53 year old F with past medical history of paroxysmal ventricular tachycardia, asthma who had a laparoscopic vaginal hysterectomy with left salpingectomy done on 02/24/19 comes in with complaints of nausea, vomiting and diarrhea ongoing for 3 days associated with chills but no fever or diarrhea or abdominal discomfort. Patient states that after her procedure when she went home, she felt well. She denied any new events. She denied any dizziness or palpitations or chest pain. The last time she had episode of vomiting was on the morning of the admission. He denies any abdominal pain at the time of exam. Vitals in the ED showed temperature 98.9 F, heart rate 105, blood pressure 111/73, respiratory rate is 20, SPO2 is 99% on room air. WBC count is 28.7, increased from 12.3, hemoglobin 13.2, platelet count is 422, sodium is 129, potassium 3.3,chloride is 94, which is 22, BUN is 29, creatinine is 2.46, increased from 0.9 to 2 weeks ago, lactic acid is 1.3. T scan of the abdomen and pelvis shows steatosis, hepatomegaly, creased density within the gallbladder suggestive of/and possible pelvic abscess. Pelvic ultrasound showed a 12.5 cm x 0.2 cm x 5.4 cm complex cystic structure in the mid pelvis. Chest x-ray was unremarkable. Past Medical History Past Medical History (Chronic Problems): Chronic Problems (Last Reviewed 03/10/19 @ 16:17 by Dajuan Newby MD) Trochanteric bursitis of left hip (Chronic) Refer to ortho for injection Obstructive sleep apnea (adult) (pediatric) (Chronic) Arthritis (Chronic) Colitis (Chronic) Thyroid disease (Chronic) Seasonal allergies (Chronic) Chronic vasomotor rhinitis (Chronic) Thoracic back pain (Chronic) Asthma (Chronic) Acid reflux (Chronic) Hypothyroid (Chronic) Status post radiofrequency ablation (RFA) operation for arrhythmia (Chronic 02/05/17) Premature ventricular contractions (PVCs) (VPCs) (Chronic) HTN (hypertension) (Chronic) Dyspnea on exertion (Chronic) HLD (hyperlipidemia) (Chronic) Atherosclerotic heart disease of [place] coronary artery without angina pectoris (Chronic) Mild nonobstructive disease of mid LAD per [facility] 01/12/15 Paroxysmal ventricular tachycardia (Chronic) EPS for RVOT PVC's w/ VT RFA 02/05/2017 Fatigue (Chronic) Obstructive sleep apnea (adult) (pediatric) (Chronic) Medical History: Medical History (Last Reviewed 03/10/19 @ 16:17 by Dajuan Newby MD) Pre-operative cardiovascular examination (Acute) Z01.810 Abnormal uterine bleeding (Acute) N93.9 simple hyperplasia, plan LAVH BS cysto Uterine fibroid (Acute) D25.9 Arthritis (Chronic) M19.90 Colitis (Chronic) K52.9 Thyroid disease (Chronic) E07.9 Seasonal allergies (Chronic) J30.2 Asthma (Chronic) J45.909 Acid reflux (Chronic) K21.9 Hypothyroid (Chronic) E03.9 Premature ventricular contractions (PVCs) (VPCs) (Chronic) I49.3 HTN (hypertension) (Chronic) I10 Dyspnea on exertion (Chronic) R06.09 HLD (hyperlipidemia) (Chronic) E78.5 Atherosclerotic heart disease of [place] coronary artery without angina pectoris (Chronic) I25.10 Mild nonobstructive disease of mid LAD per [facility] 01/12/15 Paroxysmal ventricular tachycardia (Chronic) I47.2 EPS for RVOT PVC's w/ VT RFA 02/05/2017 Fatigue (Chronic) R53.83 Obstructive sleep apnea (adult) (pediatric) (Chronic) G47.33 Allergies amoxicillin Allergy (Intermediate, Verified 03/10/19 09:50) Hives Penicillins Allergy (Intermediate, Verified 03/10/19 09:50) Hives erythromycin base Allergy (Verified 03/10/19 09:50) hives/rash Home Medications: Ambulatory Orders Medication Instructions Recorded Aspirin [Aspirin, Baby] 81 mg PO DAILY@0800 01/11/15 cetirizine 10 mg tablet 10 mg PO DAILY 07/12/18 Diclofenac Sodium [Voltaren] 2 g TOPICAL .twice daily PRN 02/18/19 Fluticasone Propion/Salmeterol 1 puff IH DAILY 02/18/19 [Wixela 250-50 Inhub] Mesalamine 2.4 g PO QDAY 02/18/19 Diltiazem HCl [Cardizem LA] 120 mg PO DAILY 03/10/19 Lansoprazole [Prevacid] 30 mg PO DAILY 03/10/19 Levothyroxine Sodium 100 mcg PO DAILY 03/10/19 Lisinopril 20 mg PO QHS 03/10/19 Lisinopril/Hydrochlorothiazide 1 tab PO DAILY 03/10/19 [Lisinopril-Hctz 20-25 mg Tab] Meloxicam 15 mg PO QODAY 03/10/19 Potassium Chloride [K-Tab ER] 20 meq PO DAILY 03/10/19 Simvastatin 20 mg PO QHS 03/10/19 Surgical History: Surgical History (Last Reviewed 03/10/19 @ 16:17 by Dajuan Newby MD) History of tonsillectomy (Resolved) Z98.890, Z90.89 H/O tubal ligation (Resolved) Z98.51 CHIOMA plantar fascitis repair (Resolved) History of left heart catheterization (Resolved) Onset Date: 01/20/15 Z98.890 01/12/2015 History of electrophysiologic study (Acute) Z98.890 History of colonoscopy (Acute) Z98.890 10/28/13 - Ulcerative Colitis, 06/20/10 Chronic Colitis, 11/23/09 Status post radiofrequency ablation (RFA) operation for arrhythmia (Chronic) Onset Date: 02/05/17 Z98.890, Z86.79 Surgical History: tonsillectomy, - - s/p tubal ligation, heart catherisation, h/o bilateral plantar fascitis, s/p ablation Psychiatric History: No pertinent psych hx Lives: Spouse/ Significant Other Smoking Status: Former smoker Tobacco Use: Non-smoker Alcohol: None Drugs: None - *Family History Maternal Family History: Family History (Last Reviewed 03/10/19 @ 09:21 by Bianka Ruby) Sister Colon cancer Grandmother Cancer Hypertension Diabetes Grandmother Hypertension Cancer History Items: No pertinent history Paternal Family History: Family History (Last Reviewed 03/10/19 @ 09:21 by Bianka Ruby) Sister Colon cancer Grandmother Cancer Hypertension Diabetes Grandmother Hypertension Cancer History Items: Unknown Review of Systems Constitutional: Reports: Chills, Malaise. Denies: Anorexia, Fever, Weakness, Weight Change, Fatigue Eyes: Denies: Blurred vision, Cataracts, Conjunctivae Inflammation, Pain, Redness, Vision Change HEENT: Denies: Difficulty Hearing, Head Aches, Hearing Changes, Sinus Congestio n, Sinus Drainage Cardiovascular: Denies: Chest Pain, Claudication, Orthopnea, Palpitations, Paroxysmal Noc. Dyspnea Respiratory: Denies: Cough, Hemoptysis, Shortness of breath at rest, Shortness of breath upon exertion, Sputum production Gastrointestinal: Reports: Diarrhea, Nausea, Vomiting. Denies: Abdominal Pain, Dyspepsia, Hematemesis, Hematochezia, Melena Genitourinary: Denies: Dysuria, Frequency, Incontinence, Nocturia Gynecological: Denies: Breast symptoms, Excessively long or heavy periods, Vaginal discharge, Vaginal itching Musculoskeletal: Denies: Joint Pain, Joint stiffness, Joint swelling, Joint Tenderness Skin: Denies: Rash, Wounds Neurological: Denies: Difficulty swallowing, Focal weakness, Numbness, Tingling Psychiatric: Denies: Anxiety, Depression, Homicidal Ideations, Suicidal Ideations Hematologic/ Lymphatic: Denies: Easy Bruising, Easy Bleeding VTE Information - Inpt Only VTE Present on Admission: No VTE Pharm Prophylaxis ordered?: Yes Patient Problems: Active and Suspected Problems (Last Reviewed 03/10/19 @ 16:17 by Dajuan Newby MD) Nausea & vomiting (Acute) Abnormal CT of the abdomen (Acute) Pelvic abscess (Acute) - Physical Exam General: Alert, Oriented x3, Cooperative, No apparent distress HEENT: Atraumatic, PERRLA, EOMI, Normocephalic Oral: Moist Mucosa Neck: Supple Lungs: Clear to auscultation, Normal air movement Cardiovascular: Regular rate, Regular Rhythm, Normal S1, Normal S2, No murmurs Abdomen: Bowel Sounds Present, Soft, Non Tender, Non-Distended, No Hepato- splenomegaly Extremities: No edema Skin: No rashes, No breakdown Musculoskeletal: No Tenderness to Palpation of Joints or Extremities Lymphatic: No Cervical, Supraclavicular, or Inguinal Adenopathy Neurological: Cranial nerves II-XII grossly intact, Neuro grossly intact Psych/Mental Status: Normal Affect, Appropriate Vital Signs Temp Pulse Resp BP Pulse Ox 98.9 F 97 16 114/66 98 03/10/19 09:50 03/10/19 16:00 03/10/19 16:00 03/10/19 16:00 03/10/19 16:00 Oxygen Delivery Method Room Air Weight: 97.3 kg Body Mass Index (BMI) 33.5 Intake and Output for Last 24 Hours 03/08/19 03/09/19 03/10/19 23:59 23:59 23:59 Intake Total 1866.42 / 1866.42 Balance 1866.42 / 1866.42 Laboratory Tests Past 24 Hrs 03/10/19 03/10/19 03/10/19 10:06 10:06 11:10 WBC 28.7 H RBC 4.34 Hgb 13.2 Hct 39.0 MCV 89.9 MCH 30.4 MCHC 33.8 RDW Std Deviation 40.2 RDW Coeff of Rohan 12.1 Plt Count 422 MPV 10.9 Immature Gran % (Auto) 1.500 H Neut % (Auto) 90.6 H Lymph % (Auto) 3.5 L [place] % (Auto) 4.1 Eos % (Auto) 0.0 Baso % (Auto) 0.3 Absolute Neuts (auto) 26.0 H Absolute Lymphs (auto) 1.01 Nucleated RBC % 0 Differential Comment COMMENT Sodium 129 L Potassium 3.3 L Chloride 94 L Carbon Dioxide 22.0 Anion Gap 13 BUN 29 H Creatinine 2.46 H Estim Creat Clear Calc 25.13 Est GFR (MDRD) Af Amer 26 L Est GFR (MDRD) Non-Af 22 L BUN/Creatinine Ratio 11.8 Glucose 125 H Lactic Acid Calcium 9.1 Total Bilirubin 0.50 AST 18 ALT 34 Alkaline Phosphatase 132 H Troponin I < 0.015 Total Protein 7.9 Albumin 3.1 L Globulin 4.8 H Albumin/Globulin Ratio 0.6 L Lipase 262 Urine Color DARK YELLOW Urine Clarity Sl. Cloudy Urine pH 5.0 Ur Specific [place] 1.015 Urine Protein 100 H Urine Glucose (UA) Normal Urine Ketones Negative Urine Occult Blood 25 H Urine Nitrite Negative Urine Bilirubin 1 H Urine Urobilinogen Normal Ur Leukocyte Esterase 500 H Urine RBC 0 SEEN Urine WBC 5-10 SEEN Ur Squamous Epith Cells 0-5 SEEN Calcium Oxalate Crystal 1+ Urine Bacteria 2+ Hyaline Casts 0-5 SEEN Fine Granular Casts 0-5 SEEN Urine Mucus 1+ 03/10/19 11:15 WBC RBC Hgb Hct MCV MCH MCHC RDW Std Deviation RDW Coeff of Rohan Plt Count MPV Immature Gran % (Auto) Neut % (Auto) Lymph % (Auto) [place] % (Auto) Eos % (Auto) Baso % (Auto) Absolute Neuts (auto) Absolute Lymphs (auto) Nucleated RBC % Differential Comment Sodium Potassium Chloride Carbon Dioxide Anion Gap BUN Creatinine Estim Creat Clear Calc Est GFR (MDRD) Af Amer Est GFR (MDRD) Non-Af BUN/Creatinine Ratio Glucose Lactic Acid 1.3 Calcium Total Bilirubin AST ALT Alkaline Phosphatase Troponin I Total Protein Albumin Globulin Albumin/Globulin Ratio Lipase Urine Color Urine Clarity Urine pH Ur Specific [place] Urine Protein Urine Glucose (UA) Urine Ketones Urine Occult Blood Urine Nitrite Urine Bilirubin Urine Urobilinogen Ur Leukocyte Esterase Urine RBC Urine WBC Ur Squamous Epith Cells Calcium Oxalate Crystal Urine Bacteria Hyaline Casts Fine Granular Casts Urine Mucus Assessment/Plan All Active Problems (Last Reviewed 03/10/19 @ 16:17 by Dajuan Newby MD) Nausea & vomiting (Acute) Abnormal CT of the abdomen (Acute) Pelvic abscess (Acute) Pre-operative cardiovascular examination (Acute) Abnormal uterine bleeding (Acute) Uterine fibroid (Acute) History of tonsillectomy (Resolved) H/O tubal ligation (Resolved) CHIOMA plantar fascitis repair (Resolved) History of left heart catheterization (Resolved 01/20/15) History of electrophysiologic study (Acute) History of colonoscopy (Acute) Contusion of left forearm, initial encounter (Acute) Sprain of left thumb (Acute) 53 year old F with past medical history of paroxysmal ventricular tachycardia, asthma who had a laparoscopic vaginal hysterectomy with left salpingectomy done on 02/24/19 comes in with complaints of nausea, vomiting and diarrhea ongoing for 3 days associated with chills but no fever or diarrhea or abdominal discomfort. 1. Sepsis secondary to pelvic abscess, s/p laparoscopic vaginal hysterectomy [address] of the abdomen and pelvis as well as pelvic ultrasound confirms possible abscess Patient has elevated WBC count, tachycardia, source of infection being possible pelvic abscess Patient received vancomycin, ceftriaxone, clindamycin and Flagyl in the ED History of penicillin allergy Plan: Admit to [facility], monitor on telemetry, continue on IV ceftriaxone and clindamycin General surgery consulted from the ED 2. Acute kidney injury, prerenal, secondary to dehydration from vomiting and diarrhea as well as use of lisinopril/hydrochlorothiazide and insulin Baseline creatinine 0.94, admitted with creatinine of 2.46 We will hold NSAIDs, lisinopril, hydrochlorothiazide IV fluids, repeat blood work 3. Hyponatremia secondary to dehydration, started on IV fluids, will recheck BMP at 7 PM and in a.m. 4. Hypokalemia secondary to vomiting and diarrhea, replace, recheck in a.m. 5. History of paroxysmal ventricular tachycardia/PVCs/SVT, EKG shows normal sinus rhythms, occasional PVCs Continue on Cardizem, will check magnesium level and replace if needed. 6. Hypothyroidism, on Synthroid 7. Hypertension, controlled, home lisinopril/hydrochlorothiazide on hold, continue on Cardizem, will monitor blood pressure closely 8. DVT PPx- Heparin SC Code Visit Inpatient E&M: 71353 Init Hosp L2
[2019-03-10 20:37] LABS: Anion Gap 10 (5-15); BUN 22 mg/dL (7-18); BUN/Creat Ratio 21.2 RATIO (10-20); Calcium,Total 8.3 mg/dL (8.5-10.1); Chloride 102 mmol/L (98-107); Creatinine, Serum 1.04 mg/dL (0.55-1.02); EST Glomerular Filtration Rate 58 mL/min (>60); Est Glom Filt Rate - Afr Amer 71 mL/min (>60); Estimated Creatinine Clearance 59.44 ml/min; Glucose 89 mg/dL (74-106); Potassium 3.7 mmol/L (3.5-5.1); Sodium Level 133 mmol/L (136-145)
[2019-03-10] MEDS: Heparin Injection (Vial) 5,000 UNIT/ML VIAL 5000 UNIT SC (21:21)
[2019-03-10] MEDS: Acetaminophen 325 MG Tablet 650 MG PO (21:31)
[2019-03-11] VITALS (15 sets, daily range): BP systolic 106–134; BP diastolic 43–69; PULSE 82–107; RESP 14–22; TEMP 36.8–38.1; O2SAT 95–100; BMI 29.2
[2019-03-11] MEDS: 0.9% Normal Saline 1,000 ML 125 ML IV ×3 (03:25→23:34)
[2019-03-11] MEDS: Levothyroxine 100 MCG Tablet PO (05:58)
[2019-03-11] MEDS: Ondansetron 4 MG/2 ML Vial IV ×2 (06:20→08:44)
[2019-03-11 07:16] LABS: Absolute Lymphocyte Count 0.95 X10^3/uL (0.83-4.51); Absolute Neutrophil Count 14.8 X10^3/uL (2.0-7.7); Basophil# 0.03 X10^3/uL; Basophil% 0.2 % (0-1); Eosinophil# 0.01 X10^3/uL; Eosinophils% 0.1 % (0-5); Hematocrit 34.7 % (37-47); Hemoglobin 11.5 g/dL (12.0-15.0); Lymphocyte # 0.95 X10^3/ul (4.0); Lymphocyte % 5.5 % (19-41); Mean Corp Hgb Conc 33.1 g/dL (32-36); Mean Corpuscular Hgb 29.9 pg (27.0-32.0); Mean Corpuscular Volume 90.4 fL (81-99); Mean Platelet Vol. 11.5 fl (6.2-12.0); Monocyte# 1.36 X10^3/uL; Monocyte% 7.9 % (0-10); NRBC Flagged by Analyzer 0 % (0-5); Neutrophil # 14.79 X10^3/uL (2.7-7.7); Neutrophil % 85.4 % (47-70); Platelet Count 285 K/mm3 (150-450); RBC Distribution Width CV 12.3 % (11.6-14.6); RBC Distribution Width SD 40.8 fl (35.1-43.9); Red Blood Count 3.84 M/mm3 (4.2-5.4); White Blood Count 17.3 K/mm3 (4.4-11.0)
[2019-03-11 07:36] LABS: ALB/GLOB Ratio 0.6 RATIO (0.9-2.4); AST(SGOT) 20 U/L (15-37); Alanine Aminotransfer ALT/SGPT 30 U/L (13-56); Albumin, Serum 2.6 g/dL (3.2-5.0); Alkaline Phosphatase 135 U/L (45-117); Anion Gap 9 (5-15); BUN 15 mg/dL (7-18); BUN/Creat Ratio 18.1 RATIO (10-20); Calcium,Total 8.5 mg/dL (8.5-10.1); Chloride 106 mmol/L (98-107); Creatinine, Serum 0.83 mg/dL (0.55-1.02); EST Glomerular Filtration Rate 76 mL/min (>60); Est Glom Filt Rate - Afr Amer 92 mL/min (>60); Estimated Creatinine Clearance 74.47 ml/min; Globulin 4.2 g/dL (2.2-4.2); Glucose 100 mg/dL (74-106); Potassium 3.9 mmol/L (3.5-5.1); Protein, Total 6.8 g/dL (6.4-8.2); Sodium Level 135 mmol/L (136-145)
--- NOTE | 2019-03-11 07:38 | CT_ITS ---
STUDY: CT ABDOMEN AND PELVIS WITH CONTRAST REASON FOR EXAM: Female, 53 years old. Assessment of the pelvic abscess following recent hysterectomy. RADIATION DOSAGE (If Supplied By Facility): CTDIvol = ( 18.18 ) mGy, DLP = ( 2263.58 ) mGycm TECHNIQUE: Transaxial images were obtained from the dome of the diaphragm to the symphysis pubis with oral contrast. IV/Oral Isovue 300 100ml was administered. Sagittal and coronal images were reconstructed. Individualized dose optimization techniques were used for this CT. COMPARISON: Comparison is made with prior examination March 10, 2019. FINDINGS: The visualized lung bases are unremarkable. The visualized portions of the heart are within normal limits. There is decreased attenuation of the liver consistent with steatosis. Focal fatty sparing in the medial aspect of the right lobe of the liver. Hepatomegaly. Normal gallbladder and extrahepatic biliary system. There is mild splenomegaly. Normal pancreas. Normal bilateral adrenal glands. Stable 4.5 Jim's cyst in the lower pole of the right kidney. Normal left kidney. Normal visualized stomach. Mild mural thickening of the small bowel loops in the pelvis adjacent to the pelvic abscess. Normal colon. The appendix is visualized and appears normal. Normal abdominal aorta. Normal inferior vena cava. There is borderline retroperitoneal lymphadenopathy with enlarged nodes no greater than 10mm in the short axis diameter. Normal urinary bladder. There is evidence of a 10.6 cm x 8.2 cm fluid collection with an air-fluid level in the pelvis. Increased markings are seen in the surrounding peritoneal fat. This is in keeping with a pelvic abscess. The patient is status post hysterectomy. Normal abdominal wall. There are degenerative changes of the visualized lumbar spine. CT/Abdomen/Pelvis WITH Contrast IMPRESSION: Pelvic abscess. The remainder of the examination is unchanged. Electronically Signed: Aryan Masters, at 15:19 EDT , Service support ,
[2019-03-11] MEDS: Pantoprazole Sodium 40 MG Tablet PO (08:49)
[2019-03-11] MEDS: dilTIAZem CD 120 MG Capsule PO (08:49)
[2019-03-11] MEDS: Ceftriaxone 1 GM/50 ML BAG IV (10:52)
--- NOTE | 2019-03-11 12:25 | CT_ITS ---
PROCEDURE: CT DIRECTED ABSCESS DRAINAGE, PERITONEAL DATE OF EXAMINATION: March 11, 2019. INDICATION: Female, 53 years old. Pelvic abscess following hysterectomy. PHYSICIAN: Aryan Masters M.D. CONSENT: Written informed consent was obtained having explained the risks, benefits and alternatives in detail with the patient who accepted the risks and agreed to proceed. Laboratory review and clinical assessment was performed. CONSCIOUS SEDATION PROTOCOL: The Drugs used were: 2 mg Versed, IV., and 100 mcg Fentanyl, IV. The sedation time was: 21 minutes. Conscious sedation was started at 1:55 PM and terminated at 2:16 PM. The conscious sedation protocol was independently monitored. RADIATION DOSAGE (If Supplied By Facility): CTDIvol = ( 14.45 ) mGy, DLP = ( 1024.26 ) mGycm TECHNIQUE: CT sections were made through the abdomen and pelvis revealing an abscess pelvis. The skin surface was prepped and draped in a sterile fashion. Puncture of this collection was performed initially with a 5 Portuguese catheter and fluid was aspirated. Drainage catheter was then inserted into the collection and formed into position. Additional fluid was aspirated for a total of approximately 260 cc of cloudy purulent fluid. The catheter was sutured into position to allow for continued drainage. Followup CT sections reveals good position of the catheter. CT/CT Guidance Abscess Drg w/Cath IMPRESSION: 1. CT directed drainage of a fluid collection using CT image guidance and image documentation as described. 2. Conscious Sedation protocol utilized with independent monitoring Electronically Signed: Aryan Masters, at 14:42 EDT , Service support ,
--- NOTE | 2019-03-11 12:35 | PCM.PROGNOTE ---
<Arturo Rothman - Last Filed: 03/11/19 12:35> Patient Problems: Active and Suspected Problems (Last Reviewed 03/10/19 @ 16:17 by Dajuan Newby MD) Nausea & vomiting (Acute) Abnormal CT of the abdomen (Acute) Pelvic abscess (Acute) Subjective: ongoing suprapubic pain, although it is somewhat improved since admission. She has significant discomfort with urination. Ongoing fever, last 100.6 @ 0845, denies chills. Ongoing watery diarrhea. Cdiff negative. Hx colitis pt of Dr. Neely on mesalamine. Some abdominal cramping. No SOB/cough. - Physical Exam General: Alert, Oriented x3, Cooperative HEENT: Atraumatic, PERRLA, EOMI, Normocephalic Neck: Supple, No JVD, Negative Carotid Bruits Lungs: Clear to auscultation, Normal air movement Cardiovascular: Regular rate, No murmurs Abdomen: Bowel Sounds Present, Soft, Tender - suprapubic tenderness, - - no guarding/rigidity Extremities: No edema, Capillary Refill Less than 3 Seconds Skin: No rashes, No breakdown Musculoskeletal: No Tenderness to Palpation of Joints or Extremities Neurological: Cranial nerves II-XII grossly intact Psych/Mental Status: Normal Affect, Appropriate, Alert and oriented to time, place, person, mood and affect Vital Signs Temp Pulse Resp BP Pulse Ox 100.6 F H 98 16 110/58 L 98 03/11/19 08:45 03/11/19 08:45 03/11/19 08:45 03/11/19 08:45 03/11/19 08:45 Oxygen Delivery Method Room Air Weight: 187 lb 2.759 oz Body Mass Index (BMI) 29.2 Intake and Output for Last 24 Hours 03/09/19 03/10/19 03/11/19 23:59 23:59 23:59 Intake Total 2247.42 / 2247.42 1939.33 / 1939.33 Output Total 1050 / 1050 Balance 2247.42 / 2247.42 889.33 / 889.33 Microbiology Past 72 Hours 03/10/19 18:30 Enteric Bacteriology - Final Stool 03/10/19 18:30 C. difficile DNA Amplification - Final Stool Laboratory Tests Past 24 Hrs 03/10/19 03/10/19 03/11/19 10:06 19:35 06:37 WBC 17.3 H RBC 3.84 L Hgb 11.5 L Hct 34.7 L MCV 90.4 MCH 29.9 MCHC 33.1 RDW Std Deviation 40.8 RDW Coeff of Rohan 12.3 Plt Count 285 MPV 11.5 Immature Gran % (Auto) 0.900 Neut % (Auto) 85.4 H Lymph % (Auto) 5.5 L [place] % (Auto) 7.9 Eos % (Auto) 0.1 Baso % (Auto) 0.2 Absolute Neuts (auto) 14.8 H Absolute Lymphs (auto) 0.95 Nucleated RBC % 0 Sodium 133 L Potassium 3.7 Chloride 102 Carbon Dioxide 21.0 Anion Gap 10 BUN 22 H Creatinine 1.04 H Estim Creat Clear Calc 59.44 Est GFR (MDRD) Af Amer 71 Est GFR (MDRD) Non-Af 58 L BUN/Creatinine Ratio 21.2 H Glucose 89 Calcium 8.3 L Magnesium 2.0 Total Bilirubin AST ALT Alkaline Phosphatase Total Protein Albumin Globulin Albumin/Globulin Ratio 03/11/19 06:37 WBC RBC Hgb Hct MCV MCH MCHC RDW Std Deviation RDW Coeff of Rohan Plt Count MPV Immature Gran % (Auto) Neut % (Auto) Lymph % (Auto) [place] % (Auto) Eos % (Auto) Baso % (Auto) Absolute Neuts (auto) Absolute Lymphs (auto) Nucleated RBC % Sodium 135 L Potassium 3.9 Chloride 106 Carbon Dioxide 20.0 L Anion Gap 9 BUN 15 Creatinine 0.83 Estim Creat Clear Calc 74.47 Est GFR (MDRD) Af Amer 92 Est GFR (MDRD) Non-Af 76 BUN/Creatinine Ratio 18.1 Glucose 100 Calcium 8.5 Magnesium Total Bilirubin 0.40 AST 20 ALT 30 Alkaline Phosphatase 135 H Total Protein 6.8 Albumin 2.6 L Globulin 4.2 Albumin/Globulin Ratio 0.6 L Medical Necessity - Tobacco Use Smoking Status: Former smoker Tobacco Use: Non-smoker Assessment/Plan All Active Problems (Last Reviewed 03/10/19 @ 16:17 by Dajuan Newby MD) Nausea & vomiting (Acute) Abnormal CT of the abdomen (Acute) Pelvic abscess (Acute) Pre-operative cardiovascular examination (Acute) Abnormal uterine bleeding (Acute) Uterine fibroid (Acute) History of tonsillectomy (Resolved) H/O tubal ligation (Resolved) CHIOMA plantar fascitis repair (Resolved) History of left heart catheterization (Resolved 01/20/15) History of electrophysiologic study (Acute) History of colonoscopy (Acute) Contusion of left forearm, initial encounter (Acute) Sprain of left thumb (Acute) 1. Acute sepsis 2/2 pelvic abscess - post op left salpingectomy 02/24/2019. WBC improved. ongoing fevers. Significant pain and dysuria. CT with contrast done, pending. Dr. Newby following. Possibly drainage vs ex lap. Continue clinda/rocephin. 2. Watery diarrhea - likely 2/2 chronic colitis, C diff and enteric panel negative. Mesalamine held. Follows Jabour as o/p. 3. SHERRI resolved - IV fluids, gretta, NSAIDs, and hctz held. 4. Hypothyroidism - synthroid 5. HLD -statin held 6. GERD - protonix 7. Asthma - no exacerbation 8. Hx PVCs/PVtach - cardizem DVT ppx: heparin This patient was seen by Arturo Rothman PA-C under the supervision of Dr. Nazario <Sal Nazario F - Last Filed: 03/11/19 13:10> - Physical Exam Vital Signs Temp Pulse Resp BP Pulse Ox 100.6 F H 99 16 110/58 L 98 03/11/19 08:45 03/11/19 11:59 03/11/19 08:45 03/11/19 08:45 03/11/19 08:45 Oxygen Delivery Method Room Air Weight: 187 lb 2.759 oz Body Mass Index (BMI) 29.2 Intake and Output for Last 24 Hours 03/09/19 03/10/19 03/11/19 23:59 23:59 23:59 Intake Total 2247.42 / 2247.42 1989.33 / 1989.33 Output Total 1350 / 1350 Balance 2247.42 / 2247.42 639.33 / 639.33 Microbiology Past 72 Hours 03/10/19 18:30 Enteric Bacteriology - Final Stool 03/10/19 18:30 C. difficile DNA Amplification - Final Stool Laboratory Tests Past 24 Hrs 03/10/19 03/10/19 03/11/19 10:06 19:35 06:37 WBC 17.3 H RBC 3.84 L Hgb 11.5 L Hct 34.7 L MCV 90.4 MCH 29.9 MCHC 33.1 RDW Std Deviation 40.8 RDW Coeff of Rohan 12.3 Plt Count 285 MPV 11.5 Immature Gran % (Auto) 0.900 Neut % (Auto) 85.4 H Lymph % (Auto) 5.5 L [place] % (Auto) 7.9 Eos % (Auto) 0.1 Baso % (Auto) 0.2 Absolute Neuts (auto) 14.8 H Absolute Lymphs (auto) 0.95 Nucleated RBC % 0 PT INR APTT Sodium 133 L Potassium 3.7 Chloride 102 Carbon Dioxide 21.0 Anion Gap 10 BUN 22 H Creatinine 1.04 H Estim Creat Clear Calc 59.44 Est GFR (MDRD) Af Amer 71 Est GFR (MDRD) Non-Af 58 L BUN/Creatinine Ratio 21.2 H Glucose 89 Calcium 8.3 L Magnesium 2.0 Total Bilirubin AST ALT Alkaline Phosphatase Total Protein Albumin Globulin Albumin/Globulin Ratio 03/11/19 03/11/19 03/11/19 06:37 06:37 06:37 WBC RBC Hgb Hct MCV MCH MCHC RDW Std Deviation RDW Coeff of Rohan Plt Count MPV Immature Gran % (Auto) Neut % (Auto) Lymph % (Auto) [place] % (Auto) Eos % (Auto) Baso % (Auto) Absolute Neuts (auto) Absolute Lymphs (auto) Nucleated RBC % PT 15.5 H INR 1.3 APTT Pending Sodium 135 L Potassium 3.9 Chloride 106 Carbon Dioxide 20.0 L Anion Gap 9 BUN 15 Creatinine 0.83 Estim Creat Clear Calc 74.47 Est GFR (MDRD) Af Amer 92 Est GFR (MDRD) Non-Af 76 BUN/Creatinine Ratio 18.1 Glucose 100 Calcium 8.5 Magnesium Total Bilirubin 0.40 AST 20 ALT 30 Alkaline Phosphatase 135 H Total Protein 6.8 Albumin 2.6 L Globulin 4.2 Albumin/Globulin Ratio 0.6 L Code Visit Addendum: Dr. Nazario I personally examined the patient and reviewed the chart. I agree with the above. 3-year-old female who is status post recent hysterectomy presents with pelvic pain. Noncontrast CT in the ER demonstrated a possible pelvic abscess. Her renal function is improved today with IV fluids and she had a repeat CT scan with contrast pending read, and evaluation by general surgery to decide between a percutaneous drainage versus exploratory laparoscopy. Continue with current IV antibiotics. Inpatient E&M: 50117 Subs Hosp L2
[2019-03-11 13:01] LABS: International Normalized Ratio 1.3; Prothrombin Time (Protime)PT. 15.5 SECONDS (11.7-14.9)
--- NOTE | 2019-03-11 13:30 | CASEMGMT ---
RN YOLIS Face to Face with patient for initial transition planning/care coordination assessment. RN CM introduced self and role at [facility]. Patient lying in bed, alert and oriented. Patient willing to participate in assessment and is able to answer all questions appropriately. Care providers, pharmacy, and demographics verified. Patient wishes to discharge home, denies need for home health at this time. Patient states she has no further needs or concerns at this time. CM to follow for discharge planning needs that may arise. PCP: Pato Ching Specialists: Jose pretzel twister; PATRICIA Neely Preferred Pharmacy: [facility] RX Insurance: [facility] Prescription Benefit: yes Living Will/HPOA: none LNOK: Living Arrangements: Patient lives in 1 story home with 4 steps to enter the home. Patient independent at home Transportation: self/ DME/HHC: Patient has [employer] at home. Denied HHC. Disposition Plan: Patient to discharge home with family support and follow-up plans in place. Miracle LLANOS, RN, CM
[2019-03-11 13:31] LABS: Partial Thromboplast Time 35.1 Seconds (24.1-36.2)
[2019-03-11] MEDS: Midazolam 2 MG/2 ML Syringe IV (13:55)
[2019-03-11] MEDS: fentaNYL 100 MCG/2 ML Ampul IV (13:57)
[2019-03-11] MEDS: Acetaminophen 325 MG Tablet 650 MG PO (15:21)
--- NOTE | 2019-03-11 15:34 | PCM.PN.SRG ---
Patient Problems: Active and Suspected Problems (Last Reviewed 03/10/19 @ 16:17 by Dajuan Newby MD) Nausea & vomiting (Acute) Abnormal CT of the abdomen (Acute) Pelvic abscess (Acute) Subjective: Patient feels better today. She is drinking her contrast without difficulty or nausea. She underwent a CAT scan and had a 12 cm fluid collection aspirated and actually states that she feels much better now. Objective: Abdomen is soft and nontender - Physical Exam Vital Signs Temp Pulse Resp BP Pulse Ox 100.6 F H 97 18 108/57 L 96 03/11/19 08:45 03/11/19 14:47 03/11/19 14:47 03/11/19 14:47 03/11/19 14:47 Oxygen Flow Rate (L/min) [5] 2 Oxygen Flow Rate (L/min) [4] 2 Oxygen Flow Rate (L/min) [3] 2 Oxygen Flow Rate (L/min) [2] 2 Oxygen Flow Rate (L/min) 2 Oxygen Delivery Method [5] Nasal Cannula Oxygen Delivery Method [4] Nasal Cannula Oxygen Delivery Method [3] Nasal Cannula Oxygen Delivery Method [2] Nasal Cannula Oxygen Delivery Method [1 ( Room Air Initial Baseline)] Oxygen Delivery Method Room Air Weight: 187 lb 2.759 oz Body Mass Index (BMI) 29.2 Intake and Output for Last 24 Hours 03/09/19 03/10/19 03/11/19 23:59 23:59 23:59 Intake Total 2247.42 / 2247.42 2156.00 / 2156.00 Output Total 1350 / 1350 Balance 2247.42 / 2247.42 806.00 / 806.00 Microbiology Past 72 Hours 03/11/19 14:10 Gram Stain - Final Pelvic Abcess 03/10/19 18:30 Enteric Bacteriology - Final Stool 03/10/19 18:30 C. difficile DNA Amplification - Final Stool Laboratory Tests Past 24 Hrs 03/10/19 03/10/19 03/11/19 10:06 19:35 06:37 WBC 17.3 H RBC 3.84 L Hgb 11.5 L Hct 34.7 L MCV 90.4 MCH 29.9 MCHC 33.1 RDW Std Deviation 40.8 RDW Coeff of Rohan 12.3 Plt Count 285 MPV 11.5 Immature Gran % (Auto) 0.900 Neut % (Auto) 85.4 H Lymph % (Auto) 5.5 L [place] % (Auto) 7.9 Eos % (Auto) 0.1 Baso % (Auto) 0.2 Absolute Neuts (auto) 14.8 H Absolute Lymphs (auto) 0.95 Nucleated RBC % 0 PT INR APTT Sodium 133 L Potassium 3.7 Chloride 102 Carbon Dioxide 21.0 Anion Gap 10 BUN 22 H Creatinine 1.04 H Estim Creat Clear Calc 59.44 Est GFR (MDRD) Af Amer 71 Est GFR (MDRD) Non-Af 58 L BUN/Creatinine Ratio 21.2 H Glucose 89 Calcium 8.3 L Magnesium 2.0 Total Bilirubin AST ALT Alkaline Phosphatase Total Protein Albumin Globulin Albumin/Globulin Ratio 03/11/19 03/11/19 03/11/19 06:37 06:37 13:06 WBC RBC Hgb Hct MCV MCH MCHC RDW Std Deviation RDW Coeff of Rohan Plt Count MPV Immature Gran % (Auto) Neut % (Auto) Lymph % (Auto) [place] % (Auto) Eos % (Auto) Baso % (Auto) Absolute Neuts (auto) Absolute Lymphs (auto) Nucleated RBC % PT 15.5 H INR 1.3 APTT 35.1 Sodium 135 L Potassium 3.9 Chloride 106 Carbon Dioxide 20.0 L Anion Gap 9 BUN 15 Creatinine 0.83 Estim Creat Clear Calc 74.47 Est GFR (MDRD) Af Amer 92 Est GFR (MDRD) Non-Af 76 BUN/Creatinine Ratio 18.1 Glucose 100 Calcium 8.5 Magnesium Total Bilirubin 0.40 AST 20 ALT 30 Alkaline Phosphatase 135 H Total Protein 6.8 Albumin 2.6 L Globulin 4.2 Albumin/Globulin Ratio 0.6 L Medical Necessity - Tobacco Use Smoking Status: Former smoker Tobacco Use: Non-smoker Assessment/Plan All Active Problems (Last Reviewed 03/10/19 @ 16:17 by Dajuan Newby MD) Nausea & vomiting (Acute) Abnormal CT of the abdomen (Acute) Pelvic abscess (Acute) Pre-operative cardiovascular examination (Acute) Abnormal uterine bleeding (Acute) Uterine fibroid (Acute) History of tonsillectomy (Resolved) H/O tubal ligation (Resolved) CHIOMA plantar fascitis repair (Resolved) History of left heart catheterization (Resolved 01/20/15) History of electrophysiologic study (Acute) History of colonoscopy (Acute) Contusion of left forearm, initial encounter (Acute) Sprain of left thumb (Acute) At this point I think another night in the hospital is appropriate if she is doing well and tolerates her liquids and hopefully be able to be discharged tomorrow.
--- NOTE | 2019-03-11 16:20 | CHAPLAIN ---
patient and bed out of room; left a calling card
[2019-03-11] MEDS: Lidocaine 5% Patch 1 PATCH TOPICAL (19:12)
[2019-03-11] MEDS: Heparin Injection (Vial) 5,000 UNIT/ML VIAL 5000 UNIT SC (21:23)
[2019-03-12 02:58] VITALS: BP 115/66; PULSE 71; RESP 14; TEMP 36.8; O2SAT 99
[2019-03-12] MEDS: Heparin Injection (Vial) 5,000 UNIT/ML VIAL 5000 UNIT SC (05:19)
[2019-03-12] MEDS: Levothyroxine 100 MCG Tablet PO (05:20)
[2019-03-12 06:28] LABS: Absolute Lymphocyte Count 1.22 X10^3/uL (0.83-4.51); Absolute Neutrophil Count 7.9 X10^3/uL (2.0-7.7); Basophil# 0.04 X10^3/uL; Basophil% 0.4 % (0-1); Eosinophil# 0.03 X10^3/uL; Eosinophils% 0.3 % (0-5); Hematocrit 33.6 % (37-47); Lymphocyte # 1.22 X10^3/ul (4.0); Lymphocyte % 12.2 % (19-41); Mean Corp Hgb Conc 32.7 g/dL (32-36); Mean Corpuscular Hgb 29.6 pg (27.0-32.0); Mean Corpuscular Volume 90.3 fL (81-99); Mean Platelet Vol. 10.8 fl (6.2-12.0); Monocyte# 0.71 X10^3/uL; Monocyte% 7.1 % (0-10); NRBC Flagged by Analyzer 0 % (0-5); Neutrophil # 7.92 X10^3/uL (2.7-7.7); Neutrophil % 78.9 % (47-70); Platelet Count 280 K/mm3 (150-450); RBC Distribution Width CV 12.2 % (11.6-14.6); RBC Distribution Width SD 40.2 fl (35.1-43.9); Red Blood Count 3.72 M/mm3 (4.2-5.4)
[2019-03-12 06:43] LABS: Anion Gap 8 (5-15); BUN 9 mg/dL (7-18); BUN/Creat Ratio 13.2 RATIO (10-20); Calcium,Total 8.2 mg/dL (8.5-10.1); Chloride 105 mmol/L (98-107); Creatinine, Serum 0.68 mg/dL (0.55-1.02); EST Glomerular Filtration Rate 95 mL/min (>60); Est Glom Filt Rate - Afr Amer 115 mL/min (>60); Glucose 113 mg/dL (74-106); Potassium 3.3 mmol/L (3.5-5.1); Sodium Level 136 mmol/L (136-145)
--- NOTE | 2019-03-12 07:51 | PN.SURG_ITS ---
Patient Problems: Active and Suspected Problems (Last Reviewed 03/10/19 @ 16:17 by Dajuan Newby MD) Nausea & vomiting (Acute) Abnormal CT of the abdomen (Acute) Pelvic abscess (Acute) Subjective: Patient's white blood count within normal limits, cultures growing multiple organisms, LUCIO drained about 50 cc yesterday and overnight - Physical Exam General: Alert, Oriented x3, Cooperative, No apparent distress Lungs: Normal air movement Cardiovascular: Regular rate Abdomen: Soft, Non Tender, Non-Distended, - - LUCIO drain in the right buttocks draining sanguinous appearing material, tender around drain site Vital Signs Temp Pulse Resp BP Pulse Ox 98.3 F 71 14 115/66 99 03/12/19 02:58 03/12/19 02:58 03/12/19 02:58 03/12/19 02:58 03/12/19 02:58 Oxygen Flow Rate (L/min) [5] 2 Oxygen Flow Rate (L/min) [4] 2 Oxygen Flow Rate (L/min) [3] 2 Oxygen Flow Rate (L/min) [2] 2 Oxygen Flow Rate (L/min) 2 Oxygen Delivery Method [5] Nasal Cannula Oxygen Delivery Method [4] Nasal Cannula Oxygen Delivery Method [3] Nasal Cannula Oxygen Delivery Method [2] Nasal Cannula Oxygen Delivery Method [1 ( Room Air Initial Baseline)] Oxygen Delivery Method Room Air Weight: 187 lb 2.759 oz Body Mass Index (BMI) 29.2 Intake and Output for Last 24 Hours 03/10/19 03/11/19 03/12/19 23:59 23:59 23:59 Intake Total 2247.42 / 2247.42 3617.58 / 3617.58 1426.83 / 1426.83 Output Total 1670 / 1670 730 / 730 Balance 2247.42 / 2247.42 1947.58 / 1947.58 696.83 / 696.83 Microbiology Past 72 Hours 03/11/19 14:10 Gram Stain - Final Pelvic Abcess 03/10/19 18:30 Enteric Bacteriology - Final Stool 03/10/19 18:30 C. difficile DNA Amplification - Final Stool Laboratory Tests Past 24 Hrs 03/11/19 03/11/19 03/12/19 06:37 13:06 06:14 WBC 10.0 RBC 3.72 L Hgb 11.0 L Hct 33.6 L MCV 90.3 MCH 29.6 MCHC 32.7 RDW Std Deviation 40.2 RDW Coeff of Rohan 12.2 Plt Count 280 MPV 10.8 Immature Gran % (Auto) 1.100 H Neut % (Auto) 78.9 H Lymph % (Auto) 12.2 L [place] % (Auto) 7.1 Eos % (Auto) 0.3 Baso % (Auto) 0.4 Absolute Neuts (auto) 7.9 H Absolute Lymphs (auto) 1.22 Nucleated RBC % 0 PT 15.5 H INR 1.3 APTT 35.1 Sodium Potassium Chloride Carbon Dioxide Anion Gap BUN Creatinine Estim Creat Clear Calc Est GFR (MDRD) Af Amer Est GFR (MDRD) Non-Af BUN/Creatinine Ratio Glucose Calcium 03/12/19 06:14 WBC RBC Hgb Hct MCV MCH MCHC RDW Std Deviation RDW Coeff of Rohan Plt Count MPV Immature Gran % (Auto) Neut % (Auto) Lymph % (Auto) [place] % (Auto) Eos % (Auto) Baso % (Auto) Absolute Neuts (auto) Absolute Lymphs (auto) Nucleated RBC % PT INR APTT Sodium 136 Potassium 3.3 L Chloride 105 Carbon Dioxide 23.0 Anion Gap 8 BUN 9 Creatinine 0.68 Estim Creat Clear Calc 90.90 Est GFR (MDRD) Af Amer 115 Est GFR (MDRD) Non-Af 95 BUN/Creatinine Ratio 13.2 Glucose 113 H Calcium 8.2 L Medical Necessity - Tobacco Use Smoking Status: Former smoker Tobacco Use: Non-smoker Assessment/Plan All Active Problems (Last Reviewed 03/10/19 @ 16:17 by Dajuan Newby MD) Nausea & vomiting (Acute) Abnormal CT of the abdomen (Acute) Pelvic abscess (Acute) Pre-operative cardiovascular examination (Acute) Abnormal uterine bleeding (Acute) Uterine fibroid (Acute) History of tonsillectomy (Resolved) H/O tubal ligation (Resolved) CHIOMA plantar fascitis repair (Resolved) History of left heart catheterization (Resolved 01/20/15) History of electrophysiologic study (Acute) History of colonoscopy (Acute) Contusion of left forearm, initial encounter (Acute) Sprain of left thumb (Acute) 53-year-old female with pelvic abscess status post IR drain 1. Patient tolerated clears, will have a regular diet this morning. 2. Her blood count is improved would continue drain as well as antibiotics as an outpatient initially may be two antibiotics-Omnicef and Clinda since we do not have sensitivities currently. Since patient is doing well may be able to be DC'd home today or tomorrow if we can figure out antibiotics and she tolerates diet.. Plan for patient to follow-up with Dr. Newby later this week. Baylee Joseph M.D. Pager: [phone] [facility] [address] [place] [address], [facility], [address] [place] [address] Office: [phone] Code Visit Inpatient E&M: 61004 Subs Hosp L1
[2019-03-12] MEDS: 0.9% Normal Saline 1,000 ML 125 ML IV (08:16)
[2019-03-12] MEDS: Pantoprazole Sodium 40 MG Tablet PO (08:17)
[2019-03-12] MEDS: dilTIAZem CD 120 MG Capsule PO (08:17)
[2019-03-12 08:22] VITALS: BP 122/68; PULSE 73; RESP 16; TEMP 36.6; O2SAT 98
[2019-03-12] MEDS: Lidocaine 5% Patch 1 PATCH TOPICAL (10:50)
[2019-03-12] MEDS: Ceftriaxone 1 GM/50 ML BAG IV (10:50)
[2019-03-12 11:46] VITALS: BP 128/76; PULSE 74; RESP 16; TEMP 36.6; O2SAT 99
--- NOTE | 2019-03-12 13:44 | DCINST_ITS ---
- Discharge Diagnoses Current Active Problems: Current Active and Chronic Problems (Last Reviewed 03/10/19 @ 16:17 by Dajuan Newby MD) Nausea & vomiting (Acute) Abnormal CT of the abdomen (Acute) Pelvic abscess (Acute) You will use the following diet at home:: Cardiac Your food should be the consistency of: Regular Your liquids should be the consistency of: Regular/Thin Discharge Activity: Return to Normal Activity Call your doctor if your incision/area has: Continuous Slow Oozing, Sudden Increased Bleeding, Increased Pain/ Swelling, Increased Redness Call your doctor if you observe: Fever of 101 or Higher, Shortness of breath, Dizziness, Fainting spells, Swelling in the ankles, Chest pain, Increased palpitations (irregular heartbeat) Allergies/Adverse Reactions: Allergies amoxicillin Allergy (Intermediate, Verified 03/10/19 09:50) Hives Penicillins Allergy (Intermediate, Verified 03/10/19 09:50) Hives erythromycin base Allergy (Verified 03/10/19 09:50) hives/rash Medications to take at Discharge Aspirin [Aspirin, Baby] 81 mg PO DAILY@0800 01/11/15 cetirizine 10 mg tablet 10 mg PO DAILY 07/12/18 Diclofenac Sodium [Voltaren] 2 g TOPICAL BID 02/18/19 Fluticasone Propion/Salmeterol [Wixela 250-50 Inhub] 1 puff IH DAILY 02/18/19 Mesalamine 2.4 g PO QDAY 02/18/19 Diltiazem HCl [Cardizem LA] 120 mg PO DAILY 03/10/19 Fluticasone 0.05% [Flonase Nasal [place]] 2 spray NASAL DAILY 03/10/19 Lansoprazole [Prevacid] 30 mg PO DAILY 03/10/19 Levothyroxine Sodium 100 mcg PO DAILY 03/10/19 Lisinopril [Prinivil] 10 mg PO QHS 03/10/19 Lisinopril/Hydrochlorothiazide [Lisinopril-Hctz 20-25 mg Tab] 1 tab PO DAILY 03/10/19 Meloxicam 15 mg PO QODAY 03/10/19 Potassium Chloride [K-Tab ER] 20 meq PO DAILY 03/10/19 Simvastatin 20 mg PO QHS 03/10/19 Cefdinir [Omnicef [equiv]] 300 mg PO Q12H #12 cap 03/12/19 Clindamycin [Cleocin] 300 mg PO 4X/DAY #24 cap 03/12/19 Lidocaine [Lidoderm Patch] 1 patch TOPICAL DAILY #7 patch 03/12/19 The following prescriptions were given: Clindamycin [Cleocin] 300 mg PO 4X/DAY #24 cap Transmission Status: Pending to [facility] Lidocaine [Lidoderm Patch] 1 patch TOPICAL DAILY #7 patch Transmission Status: Pending to [facility] Cefdinir [Omnicef [equiv]] 300 mg PO Q12H #12 cap Transmission Status: Pending to [facility] Primary Care Physician: Pato Ching DO [Primary Care Provider] - Please follow up with your Primary Care Physician in: 3-5 days Test Results: Test results from this visit will be discussed in further detail at your follow- up appointment, if applicable. Please Follow Up With: Dajuan Newby MD When: 1 week
--- NOTE | 2019-03-12 14:07 | DS.PCM_ITS ---
Discharge Date and Diagnosis - Problem List Patient Problems: Active and Suspected Problems (Last Reviewed 03/10/19 @ 16:17 by Dajuan Newby MD) Nausea & vomiting (Acute) Abnormal CT of the abdomen (Acute) Pelvic abscess (Acute) Date of Admission: 03/10/19 Date of Discharge: 03/12/19 - Primary Discharge Diagnosis Active and Suspected Problems (Last Reviewed 03/10/19 @ 16:17 by Dajuan Newby MD) Nausea & vomiting (Acute) Abnormal CT of the abdomen (Acute) Pelvic abscess (Acute) - Secondary Discharge Diagnosis Chronic Problems (Last Reviewed 03/10/19 @ 16:17 by Dajuan Newby MD) Trochanteric bursitis of left hip (Chronic) Refer to ortho for injection Obstructive sleep apnea (adult) (pediatric) (Chronic) Arthritis (Chronic) Colitis (Chronic) Thyroid disease (Chronic) Seasonal allergies (Chronic) Chronic vasomotor rhinitis (Chronic) Thoracic back pain (Chronic) Asthma (Chronic) Acid reflux (Chronic) Hypothyroid (Chronic) Status post radiofrequency ablation (RFA) operation for arrhythmia (Chronic 02/05/17) Premature ventricular contractions (PVCs) (VPCs) (Chronic) HTN (hypertension) (Chronic) Dyspnea on exertion (Chronic) HLD (hyperlipidemia) (Chronic) Atherosclerotic heart disease of [place] coronary artery without angina pectoris (Chronic) Mild nonobstructive disease of mid LAD per [facility] 01/12/15 Paroxysmal ventricular tachycardia (Chronic) EPS for RVOT PVC's w/ VT RFA 02/05/2017 Fatigue (Chronic) Obstructive sleep apnea (adult) (pediatric) (Chronic) Hospital Course and Treatment Imaging Results: CT Abd/Pelvis: IMPRESSION: A fluid level in the region of the bladder as described. A repeat CT scan of the abdomen and pelvis following IV contrast and delayed imaging is recommended for further assessment. Postoperative changes in the pelvis. Hepatomegaly and diffuse fatty infiltration of the liver. Increased density within the gallbladder suggestive of sludge and/or possible gallstones. Right renal cyst. CXR: IMPRESSION: Normal x-ray examination of the chest. US Pelvis: IMPRESSION: 12.5 cm x 0.2 cm x 5.4 cm complex cystic structure in the mid pelvis. Abscess collection should be ruled out. CT Bad/Pelvis w Contrast: MPRESSION: Pelvic abscess. The remainder of the examination is unchanged. PROCEDURE: CT DIRECTED ABSCESS DRAINAGE, PERITONEAL DATE OF EXAMINATION: March 11, 2019. INDICATION: Female, 53 years old. Pelvic abscess following hysterectomy. PHYSICIAN: Aryan Masters M.D. CONSENT: Written informed consent was obtained having explained the risks, benefits and alternatives in detail with the patient who accepted the risks and agreed to proceed. Laboratory review and clinical assessment was performed. CONSCIOUS SEDATION PROTOCOL: The Drugs used were: 2 mg Versed, IV., and 100 mcg Fentanyl, IV. The sedation time was: 21 minutes. Conscious sedation was started at 1:55 PM and terminated at 2:16 PM. The conscious sedation protocol was independently monitored. RADIATION DOSAGE (If Supplied By Facility): CTDIvol = ( 14.45 ) mGy, DLP = ( 1024.26 ) mGycm TECHNIQUE: CT sections were made through the abdomen and pelvis revealing an abscess pelvis. The skin surface was prepped and draped in a sterile fashion. Puncture of this collection was performed initially with a 5 [place] catheter and fluid was aspirated. Drainage catheter was then inserted into the collection and formed into position. Additional fluid was aspirated for a total of approximately 260 cc of cloudy purulent fluid. The catheter was sutured into position to allow for continued drainage. Followup CT sections reveals good position of the catheter. Consults: General Surgery Operations: None Procedures: - - CT guided drainage of pelvic abscess Summary of Care Provided: Per HPI: The patient is a 53 year old F with past medical history of paroxysmal ventricular tachycardia, asthma who had a laparoscopic vaginal hysterectomy with left salpingectomy done on 02/24/19 comes in with complaints of nausea, vomiting and diarrhea ongoing for 3 days associated with chills but no fever or diarrhea or abdominal discomfort. Patient states that after her procedure when she went home, she felt well. She denied any new events. She denied any dizziness or palpitations or chest pain. The last time she had episode of vomiting was on the morning of the admission. He denies any abdominal pain at the time of exam. Vitals in the ED showed temperature 98.9 F, heart rate 105, blood pressure 111/73, respiratory rate is 20, SPO2 is 99% on room air. WBC count is 28.7, increased from 12.3, hemoglobin 13.2, platelet count is 422, sodium is 129, potassium 3.3,chloride is 94, which is 22, BUN is 29, creatinine is 2.46, increased from 0.9 to 2 weeks ago, lactic acid is 1.3. T scan of the abdomen and pelvis shows steatosis, hepatomegaly, creased density within the gallbladder suggestive of/and possible pelvic abscess. Pelvic ultrasound showed a 12.5 cm x 0.2 cm x 5.4 cm complex cystic structure in the mid pelvis. Chest x-ray was unremarkable. Hospital Course: 1. Sepsis secondary to a pelvic [id number] female who had a microscopic vaginal hysterectomy with a left salpingectomy on 02/24/2019 patient with nausea, vomiting and diarrhea for 3 days prior to admission. She was found to have a pelvic abscess on admission and had a CT-guided drainage done on 03/11/2019. A drain was left in place 50 cc after the initial drainage. Unfortunate we are treating empirically at the moment and she is tolerating her diet and would like to go home. We will continue with Omnicef and clindamycin and she was improving with clindamycin and Rocephin here in the hospital. Will evaluate sensitivities from the CT-guided cultures when available we will make adjustments as necessary. Continue with lidocaine patch to the area as she states that this provides some pain relief. I discussed the risks and benefits of discharge which she understood. She will need to follow-up surgery in 1 week as outpatient for this drain. 2. Her other medical diagnoses were evaluated and her home medications were continued where appropriate. She did have some difficulty with diarrhea and she was worked up for enteric pathogens and C. difficile which all came back negative. Her mesalamine had been held for her history of colitis and therefore this will be restarted. Also advised that she take probiotics while on broad- spectrum antibiotics. Patient Problems: Active and Suspected Problems (Last Reviewed 03/10/19 @ 16:17 by Dajuan Newby MD) Nausea & vomiting (Acute) Abnormal CT of the abdomen (Acute) Pelvic abscess (Acute) - Physical Exam General: Alert, Oriented x3, Cooperative, No apparent distress HEENT: Atraumatic, PERRLA, EOMI, Normocephalic Oral: Moist Mucosa Neck: Supple, No JVD Lungs: Clear to auscultation, Normal air movement, No rhonchi, No wheeze, No rales Cardiovascular: Regular rate, Regular Rhythm, Normal S1, Normal S2, No murmurs Abdomen: Soft, Non Tender, Non-Distended, No Hepato-splenomegaly, - - Drainage catheter is in place and draining well Extremities: No edema, Capillary Refill Less than 3 Seconds Skin: No rashes, No breakdown Neurological: Neuro grossly intact, Sensory exam intact to light touch and pain Psych/Mental Status: Normal Affect, Appropriate Vital Signs Temp Pulse Resp BP Pulse Ox 97.9 F 74 16 128/76 H 99 03/12/19 11:46 03/12/19 11:46 03/12/19 11:46 03/12/19 11:46 03/12/19 11:46 Oxygen Flow Rate (L/min) [5] 2 Oxygen Flow Rate (L/min) [4] 2 Oxygen Flow Rate (L/min) [3] 2 Oxygen Flow Rate (L/min) [2] 2 Oxygen Flow Rate (L/min) 2 Oxygen Delivery Method [5] Nasal Cannula Oxygen Delivery Method [4] Nasal Cannula Oxygen Delivery Method [3] Nasal Cannula Oxygen Delivery Method [2] Nasal Cannula Oxygen Delivery Method [1 ( Room Air Initial Baseline)] Oxygen Delivery Method Room Air Weight: 187 lb 2.759 oz Body Mass Index (BMI) 29.2 Intake and Output for Last 24 Hours 03/10/19 03/11/19 03/12/19 23:59 23:59 23:59 Intake Total 2247.42 / 2247.42 3617.58 / 3617.58 2474.74 / 2474.74 Output Total 1670 / 1670 1030 / 1030 Balance 2247.42 / 2247.42 1947.58 / 1947.58 1444.74 / 1444.74 Microbiology Past 72 Hours 03/10/19 14:10 Blood Culture - Preliminary Blood Culture (Wb) - Anticubital Right No growth in 48 hours. 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 difficile DNA Amplification - Final Stool Laboratory Tests Past 24 Hrs 03/12/19 03/12/19 06:14 06:14 WBC 10.0 RBC 3.72 L Hgb 11.0 L Hct 33.6 L MCV 90.3 MCH 29.6 MCHC 32.7 RDW Std Deviation 40.2 RDW Coeff of Rohan 12.2 Plt Count 280 MPV 10.8 Immature Gran % (Auto) 1.100 H Neut % (Auto) 78.9 H Lymph % (Auto) 12.2 L [place] % (Auto) 7.1 Eos % (Auto) 0.3 Baso % (Auto) 0.4 Absolute Neuts (auto) 7.9 H Absolute Lymphs (auto) 1.22 Nucleated RBC % 0 Sodium 136 Potassium 3.3 L Chloride 105 Carbon Dioxide 23.0 Anion Gap 8 BUN 9 Creatinine 0.68 Estim Creat Clear Calc 90.90 Est GFR (MDRD) Af Amer 115 Est GFR (MDRD) Non-Af 95 BUN/Creatinine Ratio 13.2 Glucose 113 H Calcium 8.2 L Discharge Activity: Return to Normal Activity Call your doctor if your incision/area has: Continuous Slow Oozing, Sudden Increased Bleeding, Increased Pain/ Swelling, Increased Redness Call your doctor if you observe: Fever of 101 or Higher, Shortness of breath, Dizziness, Fainting spells, Swelling in the ankles, Chest pain, Increased palpitations (irregular heartbeat) Home Medications: Medications to take at Discharge Aspirin [Aspirin, Baby] 81 mg PO DAILY@0800 01/11/15 cetirizine 10 mg tablet 10 mg PO DAILY 07/12/18 Diclofenac Sodium [Voltaren] 2 g TOPICAL BID 02/18/19 Fluticasone Propion/Salmeterol [Wixela 250-50 Inhub] 1 puff IH DAILY 02/18/19 Mesalamine 2.4 g PO QDAY 02/18/19 Diltiazem HCl [Cardizem LA] 120 mg PO DAILY 03/10/19 Fluticasone 0.05% [Flonase Nasal [place]] 2 spray NASAL DAILY 03/10/19 Lansoprazole [Prevacid] 30 mg PO DAILY 03/10/19 Levothyroxine Sodium 100 mcg PO DAILY 03/10/19 Lisinopril [Prinivil] 10 mg PO QHS 03/10/19 Lisinopril/Hydrochlorothiazide [Lisinopril-Hctz 20-25 mg Tab] 1 tab PO DAILY 03/10/19 Meloxicam 15 mg PO QODAY 03/10/19 Potassium Chloride [K-Tab ER] 20 meq PO DAILY 03/10/19 Simvastatin 20 mg PO QHS 03/10/19 Cefdinir [Omnicef [equiv]] 300 mg PO Q12H #12 cap 03/12/19 Clindamycin [Cleocin] 300 mg PO 4X/DAY #24 cap 03/12/19 Lidocaine [Lidoderm Patch] 1 patch TOPICAL DAILY #7 patch 03/12/19 Following Prescrptions Were Given to Patient: Clindamycin [Cleocin] 300 mg PO 4X/DAY #24 cap Prescription Printed Lidocaine [Lidoderm Patch] 1 patch TOPICAL DAILY #7 patch Prescription Printed Cefdinir [Omnicef [equiv]] 300 mg PO Q12H #12 cap Prescription Printed Primary Care Physician: Pato Ching DO [Primary Care Provider] - Please follow up with your Primary Care Physician in: 3-5 days Please Follow Up With: Dajuan Newby MD When: 1 week Disposition: Home Minutes spent on discharge:: 35 Patient Condition:: Stable Medical Necessity - Tobacco Use Smoking Status: Former smoker Tobacco Use: Non-smoker Meaningful Use Info Meaningful Use Diagnoses (Choose all that apply): None applicable Code Visit Inpatient E&M: 60543 Disch Hosp
--- NOTE | 2019-03-14 14:54 | CASEMGMT ---
DEEPIKA LAGOS DC PHONE CALL DC DATE: 03/12/19 DC Disposition: Home Diagnosis on Discharge: Pelvic Abscess LACE/STRATA: 02/24 Intro role of CM to patient via phone. Pt states she has contacted physicians and f/u appointments are made. Reviewed medications and pt states physician office called re: stopping antibiotics. Pt will f/u with Dr. Ching and Dr. Newby. No further questions and no care improvement suggestions were given. Malu GUERINN RN ACM
== END 2019-03-12 14:43 | disposition home or self-care (01) | DRG 872 ==
LOC: ED 10:45 → MS3 15:54
PROVIDERS: Physician Assistant; Radiology Diagnostic Radiology; Admitting Provider Internal Medicine; Emergency Provider Emergency Medicine; Family Provider Family Medicine; PCP Family Medicine; Visit Provider Family Medicine
DX: A41.9 Sepsis, unspecified organism (principal); N17.9 Acute kidney failure, unspecified; E87.1 Hypo-osmolality and hyponatremia; N73.9 Female pelvic inflammatory disease, unspecified; J45.909 Unspecified asthma, uncomplicated; E03.9 Hypothyroidism, unspecified; Z88.0 Allergy status to penicillin; Z90.710 Acquired absence of both cervix and uterus; E87.6 Hypokalemia; I10 Essential (primary) hypertension; E78.5 Hyperlipidemia, unspecified; I49.3 Ventricular premature depolarization; K21.9 Gastro-esophageal reflux disease without esophagitis; G47.33 Obstructive sleep apnea (adult) (pediatric); I25.10 Atherosclerotic heart disease of native coronary artery without angina pectoris; Z79.82 Long term (current) use of aspirin; Z80.0 Family history of malignant neoplasm of digestive organs; Z82.49 Family history of ischemic heart disease and other diseases of the circulatory system; Z83.3 Family history of diabetes mellitus; Z87.891 Personal history of nicotine dependence; Z98.51 Tubal ligation status
CPT/HCPCS: 36415; 71045; 74176; 74177; 75989; 76856; 80048; 80053; 81001; 83605; 83690; 83735; 84484; 85025; 85610; 85730; 87040; 87070; 87075; 87077; 87086; 87088; 87186; 87205; 87493; 87506; 93005; 97802; 99156; 99157; 99285; J7030; J7040; J7050; Q9967; A4216; J2405

== ENCOUNTER → 2019-04-12 13:46 | Outpatient (CLI) | payer OTHER, SELFPAY ==
[2019-04-11 09:30] VITALS: BMI 29.4
--- NOTE | 2019-04-12 13:47 | US_ITS ---
STUDY: ULTRASOUND OF THE FEMALE PELVIS - LIMITED REASON FOR EXAM: Female, 53 years old . Adnexal fullness. The patient is postmenopausal. TECHNIQUE: Transabdominal and Transvaginal TECHNICAL QUALITY: Adequate. COMPARISON: Comparison is made with prior pelvic ultrasound dated March 10, 2019. FINDINGS: The patient is status post hysterectomy. The patient is status post right oophorectomy. The left ovary measures 2.5 cm x 2.4 cm x 1.4 cm. There is no left ovarian cyst or ovarian mass. There is no visualized left adnexal mass or complex lesion. There is normal arterial and normal venous vascularity. There is no fluid in the cul-de-sac. US/Transvaginal Non- IMPRESSION: Status post hysterectomy and right oophorectomy. No acute abnormality is seen. Electronically Signed: Aryan Masters, at 13:09 EST , Service support ,
--- NOTE | 2019-04-12 13:47 | US_ITS ---
STUDY: ULTRASOUND OF THE FEMALE PELVIS - LIMITED REASON FOR EXAM: Female, 53 years old . Adnexal fullness. The patient is postmenopausal. TECHNIQUE: Transabdominal and Transvaginal TECHNICAL QUALITY: Adequate. COMPARISON: Comparison is made with prior pelvic ultrasound dated March 10, 2019. FINDINGS: The patient is status post hysterectomy. The patient is status post right oophorectomy. The left ovary measures 2.5 cm x 2.4 cm x 1.4 cm. There is no left ovarian cyst or ovarian mass. There is no visualized left adnexal mass or complex lesion. There is normal arterial and normal venous vascularity. There is no fluid in the cul-de-sac. US/Pelvic (Non ) IMPRESSION: Status post hysterectomy and right oophorectomy. No acute abnormality is seen. Electronically Signed: Aryan Masters, at 13:09 EST , Service support ,
== END ==
PROVIDERS: Family Provider Family Medicine; PCP Family Medicine; Referring Provider Obstetrics & Gynecology; Visit Provider Obstetrics & Gynecology
DX: R19.00 Intra-abdominal and pelvic swelling, mass and lump, unspecified site (principal)
CPT/HCPCS: 76830; 76856

== ENCOUNTER → 2019-12-01 | Outpatient (CLI) | payer OTHER, SELFPAY ==
[2019-12-01 14:07] VITALS: BMI 30.8
[2019-12-01 17:04] LABS: Hematocrit 44.1 % (37-47); Hemoglobin 14.7 g/dL (12.0-15.0); Mean Corp Hgb Conc 33.3 g/dL (32-36); Mean Corpuscular Hgb 30.5 pg (27.0-32.0); Mean Corpuscular Volume 91.5 fL (81-99); Mean Platelet Vol. 12.6 fl (6.2-12.0); Platelet Count 189 K/mm3 (150-450); RBC Distribution Width CV 12.7 % (11.6-14.6); RBC Distribution Width SD 41.8 fl (35.1-43.9); Red Blood Count 4.82 M/mm3 (4.2-5.4); White Blood Count 7.2 K/mm3 (4.4-11.0)
[2019-12-01 17:21] LABS: ALB/GLOB Ratio 1.3 RATIO (0.9-2.4); AST(SGOT) 56 U/L (15-37); Alanine Aminotransfer ALT/SGPT 76 U/L (13-56); Albumin, Serum 4.1 g/dL (3.2-5.0); Alkaline Phosphatase 129 U/L (45-117); Anion Gap 7 (5-15); BUN 15 mg/dL (7-18); BUN/Creat Ratio 20.4 RATIO (10-20); Calcium,Total 9.1 mg/dL (8.5-10.1); Chloride 103 mmol/L (98-107); Creatinine, Serum 0.74 mg/dL (0.55-1.02); EST Glomerular Filtration Rate 87 mL/min (>60); Est Glom Filt Rate - Afr Amer 105 mL/min (>60); Globulin 3.2 g/dL (2.2-4.2); Glucose 97 mg/dL (74-106); Magnesium 2.2 mg/dL (1.6-2.6); Potassium 4.1 mmol/L (3.5-5.1); Protein, Total 7.3 g/dL (6.4-8.2); Sodium Level 138 mmol/L (136-145)
== END | disposition home or self-care (01) ==
LOC: BIMLAB 14:26
PROVIDERS: PCP Family Medicine; Referring Provider Family Medicine; Visit Provider Family Medicine
DX: R25.2 Cramp and spasm (principal)
CPT/HCPCS: 36415; 80053; 83735; 85027

== ENCOUNTER → 2020-01-16 | Outpatient (CLI) | payer OTHER, SELFPAY ==
[2019-12-27 16:34] VITALS: BMI 30.8
[2020-01-16 15:52] LABS: AST(SGOT) 34 U/L (15-37); Alanine Aminotransfer ALT/SGPT 59 U/L (13-56); Albumin, Serum 3.8 g/dL (3.2-5.0); Alkaline Phosphatase 142 U/L (45-117); Bilirubin, Direct 0.14 mg/dL (0.00-0.30); Globulin 3.3 g/dL (2.2-4.2); Protein, Total 7.1 g/dL (6.4-8.2)
== END | disposition home or self-care (01) ==
LOC: BIMLAB 11:43
PROVIDERS: PCP Family Medicine; Visit Provider Family Medicine
DX: R93.5 Abnormal findings on diagnostic imaging of other abdominal regions, including retroperitoneum (principal)
CPT/HCPCS: 36415; 80076

== ENCOUNTER 2020-03-19 10:07 | Outpatient (RCR) | payer OTHER, SELFPAY ==
[2020-01-24 10:52] VITALS: BMI 30.8
[2020-02-29 10:57] VITALS: BMI 30.8
== END 2020-03-24 23:59 ==
LOC: EMPH 10:07
PROVIDERS: PCP Family Medicine; Visit Provider Family Medicine Geriatric Medicine
DX: Z03.818 Encounter for observation for suspected exposure to other biological agents ruled out (principal)
CPT/HCPCS: 87426

== ENCOUNTER → 2020-05-02 15:54 | Outpatient (CLI) | payer OTHER, SELFPAY ==
[2020-05-02 15:33] VITALS: BMI 30.4
[2020-05-02 15:55] LABS: Bacteria 0 SEEN /hpf (None Seen); Mucous, Urine 0 SEEN /hpf (<or=2+); Red Blood Cells-Urine 0 SEEN /hpf (0-5)
[2020-05-02 17:06] LABS: Color, Urine Yellow (Yellow); Glucose, Dipstick Normal (Normal); Ketone-Dipstick Negative (Negative); Leukocyte Esterase-Dipstick 500 /ul (Negative); Nitrite-Dipstick Negative (Negative); Occult Blood-Urine Negative /ul (Negative); Protein-Dipstick Negative (Negative); Urine Bilirubin Dipstick Negative (Negative); Urine Clarity Clear (Clear); Urine Urobilinogen Normal (Normal)
[2020-05-02 17:15] LABS: Squamous Epithelial Cells - UA 0-5 SEEN /hpf (5-10); White Blood Cells 0-5 SEEN /hpf (0-5)
[2020-05-02 17:24] LABS: T4 Free Direct 1.28 ng/dL (0.76-1.46); Thyroid Stim Hormone (TSH) 0.86 uIU/mL (0.358-3.74)
== END ==
PROVIDERS: PCP Family Medicine; Referring Provider Family Medicine; Visit Provider Family Medicine
DX: E03.9 Hypothyroidism, unspecified (principal); R30.0 Dysuria
CPT/HCPCS: 36415; 81001; 84439; 84443

== ENCOUNTER 2020-05-23 14:02 | Outpatient (RCR) | payer OTHER, SELFPAY ==
[2020-04-03 09:36] VITALS: BMI 31.1
== END 2020-05-24 23:59 ==
LOC: EMPH 14:02
PROVIDERS: PCP Family Medicine; Visit Provider Family Medicine Geriatric Medicine
DX: Z03.818 Encounter for observation for suspected exposure to other biological agents ruled out (principal)
CPT/HCPCS: 87426

== ENCOUNTER 2020-06-22 14:18 | Outpatient (RCR) | payer OTHER, SELFPAY ==
[2020-05-02 15:33] VITALS: BMI 30.4
== END 2020-06-24 23:59 ==
LOC: EMPH 14:18
PROVIDERS: PCP Family Medicine; Referring Provider Family Medicine Geriatric Medicine; Visit Provider Family Medicine Geriatric Medicine
DX: Z03.818 Encounter for observation for suspected exposure to other biological agents ruled out (principal)
CPT/HCPCS: 87426

== ENCOUNTER 2020-07-20 14:45 | Outpatient (RCR) | payer OTHER, SELFPAY | END 2020-07-22 23:59 | LOC: EMPH 14:45 | PROVIDERS: PCP Family Medicine; Referring Provider Family Medicine Geriatric Medicine; Visit Provider Family Medicine Geriatric Medicine | DX: Z03.818 Encounter for observation for suspected exposure to other biological agents ruled out (principal) | CPT/HCPCS: 87426 ==

== ENCOUNTER 2020-08-15 09:52 | Outpatient (RCR) | payer OTHER, SELFPAY ==
[2020-07-04 14:13] VITALS: BMI 31.0
== END 2020-08-22 23:59 ==
LOC: EMPH 09:52
PROVIDERS: PCP Family Medicine; Referring Provider Family Medicine Geriatric Medicine; Visit Provider Family Medicine Geriatric Medicine
DX: Z03.818 Encounter for observation for suspected exposure to other biological agents ruled out (principal)
CPT/HCPCS: 87426

== ENCOUNTER 2020-09-21 10:03 | Outpatient (RCR) | payer OTHER, SELFPAY ==
[2020-08-07 13:31] VITALS: BMI 30.7
== END 2020-09-21 23:59 ==
LOC: EMPH 10:03
PROVIDERS: PCP Family Medicine; Referring Provider Family Medicine Geriatric Medicine; Visit Provider Family Medicine Geriatric Medicine
DX: Z03.818 Encounter for observation for suspected exposure to other biological agents ruled out (principal)
CPT/HCPCS: 87426

== ENCOUNTER 2020-10-19 09:16 | Outpatient (RCR) | payer OTHER, SELFPAY ==
[2020-08-07 13:31] VITALS: BMI 30.7
== END 2020-10-22 23:59 ==
LOC: EMPH 09:16
PROVIDERS: PCP Family Medicine; Referring Provider Family Medicine Geriatric Medicine; Visit Provider Family Medicine Geriatric Medicine
DX: Z03.818 Encounter for observation for suspected exposure to other biological agents ruled out (principal)
CPT/HCPCS: 87426

== ENCOUNTER 2020-11-20 13:18 | Outpatient (RCR) | payer OTHER, SELFPAY ==
[2020-08-07 13:31] VITALS: BMI 30.7
== END 2020-11-21 23:59 ==
LOC: EMPH 13:18
PROVIDERS: PCP Family Medicine; Referring Provider Family Medicine Geriatric Medicine; Visit Provider Family Medicine Geriatric Medicine
DX: Z03.818 Encounter for observation for suspected exposure to other biological agents ruled out (principal)
CPT/HCPCS: 87426

== ENCOUNTER 2020-12-21 13:06 | Outpatient (RCR) | payer OTHER, SELFPAY ==
[2020-10-25 13:54] VITALS: BMI 30.7
== END 2020-12-21 16:00 | disposition home or self-care (01) ==
LOC: EMPH 13:06
PROVIDERS: PCP Family Medicine; Referring Provider Family Medicine Geriatric Medicine; Visit Provider Family Medicine Geriatric Medicine
DX: Z03.818 Encounter for observation for suspected exposure to other biological agents ruled out (principal)
CPT/HCPCS: 87426

== ENCOUNTER → 2021-01-10 14:03 | Outpatient (CLI) | payer OTHER, SELFPAY ==
[2021-01-10 15:57] LABS: Thyroid Stim Hormone (TSH) 4.31 uIU/mL (0.358-3.74)
== END ==
PROVIDERS: PCP Family Medicine; Referring Provider Family Medicine; Visit Provider Family Medicine
DX: E07.9 Disorder of thyroid, unspecified (principal)
CPT/HCPCS: 36415; 84443

== ENCOUNTER 2021-01-22 14:10 | Outpatient (RCR) | payer OTHER, SELFPAY ==
[2020-11-28 14:11] VITALS: BMI 30.7
== END 2021-01-22 14:12 | disposition home or self-care (01) ==
LOC: EMPH 14:10
PROVIDERS: PCP Family Medicine; Referring Provider Family Medicine Geriatric Medicine; Visit Provider Family Medicine Geriatric Medicine
DX: Z03.818 Encounter for observation for suspected exposure to other biological agents ruled out (principal)
CPT/HCPCS: 87426

== ENCOUNTER 2021-02-21 13:13 | Outpatient (RCR) | payer OTHER, SELFPAY ==
[2021-01-23 00:29] VITALS: BMI 30.7
== END 2021-02-21 23:59 ==
LOC: EMPH 13:13
PROVIDERS: PCP Family Medicine; Referring Provider Family Medicine Geriatric Medicine; Visit Provider Family Medicine Geriatric Medicine
DX: Z03.818 Encounter for observation for suspected exposure to other biological agents ruled out (principal)
CPT/HCPCS: 87426

== ENCOUNTER 2021-03-21 12:00 | Outpatient (RCR) | payer OTHER, SELFPAY ==
[2021-02-22 00:24] VITALS: BMI 30.7
== END 2021-03-24 23:59 ==
LOC: EMPH 12:00
PROVIDERS: PCP Family Medicine; Referring Provider Family Medicine Geriatric Medicine; Visit Provider Family Medicine Geriatric Medicine
DX: Z03.818 Encounter for observation for suspected exposure to other biological agents ruled out (principal)
CPT/HCPCS: 87426

== ENCOUNTER 2021-04-15 09:32 | Outpatient (RCR) | payer OTHER, SELFPAY ==
[2021-03-25 00:19] VITALS: BMI 30.7
== END 2021-04-23 23:59 ==
LOC: EMPH 09:32
PROVIDERS: PCP Family Medicine; Referring Provider Family Medicine Geriatric Medicine; Visit Provider Family Medicine Geriatric Medicine
DX: Z03.818 Encounter for observation for suspected exposure to other biological agents ruled out (principal)
CPT/HCPCS: 87426

== ENCOUNTER 2021-05-03 14:10 | Outpatient (RCR) | payer OTHER, SELFPAY ==
[2021-04-24 00:25] VITALS: BMI 30.7
== END 2021-05-24 23:59 ==
LOC: EMPH 14:10
PROVIDERS: PCP Family Medicine; Referring Provider Family Medicine Geriatric Medicine; Visit Provider Family Medicine Geriatric Medicine
DX: Z03.818 Encounter for observation for suspected exposure to other biological agents ruled out (principal)
CPT/HCPCS: 87426; 87635; U0003

== ENCOUNTER 2021-05-31 16:01 | Outpatient (CLI) | payer OTHER, SELFPAY | END 2021-05-31 23:59 | disposition short-term general hospital (02) | LOC: LABSPEC 16:01 | PROVIDERS: PCP Family Medicine; Referring Provider Physician Assistant; Visit Provider Physician Assistant | DX: R05.9 Cough, unspecified (principal); J02.9 Acute pharyngitis, unspecified; R09.81 Nasal congestion | CPT/HCPCS: 87635; U0003; U0005 ==

== ENCOUNTER 2021-11-19 09:45 | Outpatient (RCR) | payer OTHER, SELFPAY | END 2021-11-21 23:59 | LOC: EMPH 09:45 | PROVIDERS: PCP Family Medicine; Visit Provider Family Medicine Geriatric Medicine | DX: Z01.84 Encounter for antibody response examination (principal) | CPT/HCPCS: 87811 ==

== ENCOUNTER → 2022-02-26 | Outpatient (CLI) | payer OTHER, SELFPAY ==
[2022-02-26 13:10] LABS: ALB/GLOB Ratio 1.1 RATIO (0.9-2.4); AST(SGOT) 22 U/L (15-37); Alanine Aminotransfer ALT/SGPT 45 U/L (13-56); Albumin, Serum 3.6 g/dL (3.2-5.0); Alkaline Phosphatase 121 U/L (45-117); Anion Gap 7 (5-15); BUN 11 mg/dL (7-18); Chloride 105 mmol/L (98-107); Cholesterol 154 mg/dL (200); Creatinine, Serum 0.78 mg/dL (0.55-1.02); EST Glomerular Filtration Rate 80 mL/min (>60); Est Glom Filt Rate - Afr Amer 97 mL/min (>60); Globulin 3.3 g/dL (2.2-4.2); Glucose 137 mg/dL (74-106); High Density Lipoprotein 49 mg/dL; Potassium 3.5 mmol/L (3.5-5.1); Protein, Total 6.9 g/dL (6.4-8.2); Sodium Level 139 mmol/L (136-145); Thyroid Stim Hormone (TSH) 0.38 uIU/mL (0.358-3.74); Triglycerides 126 mg/dL; Very Low Density Lipoprotein 25 mg/dL (5-40)
== END | disposition home or self-care (01) ==
LOC: BIMLAB 11:13
PROVIDERS: PCP Family Medicine; Referring Provider Family Medicine; Visit Provider Family Medicine
DX: I10 Essential (primary) hypertension (principal); E78.5 Hyperlipidemia, unspecified; E07.9 Disorder of thyroid, unspecified
CPT/HCPCS: 36415; 80053; 80061; 84443

== ENCOUNTER → 2023-03-11 | Outpatient (CLI) | payer OTHER, SELFPAY ==
[2023-03-11 19:31] LABS: Thyroid Stim Hormone (TSH) 2.05 uIU/mL (0.358-3.74)
== END | disposition home or self-care (01) ==
LOC: BIMLAB 15:39
PROVIDERS: PCP Family Medicine; Referring Provider Family Medicine; Visit Provider Family Medicine
DX: E07.9 Disorder of thyroid, unspecified (principal)
CPT/HCPCS: 36415; 84443

== ENCOUNTER → 2023-04-08 | Outpatient (CLI) | payer OTHER, SELFPAY ==
--- NOTE | 2023-04-08 15:16 | BI_ITS ---
MAMMOGRAPHY - BILATERAL SCREENING REASON FOR EXAM: Female, 57 years old. Routine annual screening examination. PERTINENT HISTORY: Grandmother with breast cancer. TECHNIQUE: Digital bilateral breast javon (3D mammographic acquisition) in the CC and MLO projections. 2-D mediolateral oblique (MLO) and craniocaudad (CC) views of both breasts were obtained. CAD: Full Field Digital Mammography with Computer Added Detection was performed. COMPARISON: None. Baseline examination. FINDINGS: Breast Composition: The breasts are heterogeneously dense, which may obscure small masses. There are no dominant masses or suspicious calcifications. Benign appearing bilateral axillary lymph nodes. No other significant abnormalities are identified. BI/SCRN MAMM (CAD)W/JAVON BILAT IMPRESSION: Negative screening mammogram. Yearly followup mammogram recommended. (A) ASSESSMENT CATEGORY: BIRADS Category 2: Benign. A letter regarding these results will be sent to the patient by the facility within 30 days. Approximately 10% of breast cancers are not detected by mammography. A normal mammogram should not delay biopsy of a clinically suspicious abnormality. [id number] Electronically Signed: Aryan Masters MD at 8:40 EST ,
== END | disposition home or self-care (01) ==
LOC: OPBI 15:15
PROVIDERS: PCP Family Medicine; Referring Provider Family Medicine; Visit Provider Family Medicine
DX: Z12.31 Encounter for screening mammogram for malignant neoplasm of breast (principal)
CPT/HCPCS: 77063; 77067

== ENCOUNTER 2024-01-10 16:55 | Emergency (ER) | payer OTHER, SELFPAY ==
[2024-01-10 16:57] VITALS: BP 135/77; PULSE 93; RESP 18; TEMP 36.3; O2SAT 97; BMI 31.2
--- NOTE | 2024-01-10 17:27 | EX.ED.UPPERE ---
HPI History of Present Illness HPI Narrative: 58-year-old female history of SVT and hypothyroidism. Last several days send left forearm, localized area of redness, swelling and discomfort. When she was seen in the now urgent care and they started her on 2 different antibiotics Flagyl and Bactrim. It has not gotten any better. She denies any fever or chills. No prior history. She is unsure if this may be secondary to she was cleaning up thorny branches and may have 1 in the air may have an infection and abscess. Chief Complaint: Wound Check Informant: patient and spouse/S.O. Onset/Context/Timing Onset: Days Timing: Continuous Quality of Pain: Dull Current Severity: Mild Maximum Severity: Mild Associated Symptoms Associated Symptoms: Negative for Parasthesia, Weakness or Loss of Funtion Narrative Narrative: 58-year-old female with wound on her left mid forearm wound. Several days to a week. Currently on 2 different antibiotics Flagyl and Bactrim. Not improving. Prior similar symptoms: No Recent Illness/Hospitalization: No PFSH PFSH Medical History Essential hypertension Dysuria Pain in right foot Skin tags, multiple acquired Eczema of hand Leg pain, left Somatic dysfunction of back Adnexal fullness Pelvic abscess Abnormal CT of the abdomen Nausea & vomiting Pre-operative cardiovascular examination Abnormal uterine bleeding Uterine fibroid Trochanteric bursitis of left hip Obstructive sleep apnea (adult) (pediatric) Arthritis Colitis Thyroid disease Seasonal allergies Chronic vasomotor rhinitis Thoracic back pain Contusion of left forearm, initial encounter Sprain of left thumb Asthma Acid reflux Hypothyroid Premature ventricular contractions (PVCs) (VPCs) HTN (hypertension) Dyspnea on exertion HLD (hyperlipidemia) Atherosclerotic heart disease of [place] coronary artery without angina pectoris Paroxysmal ventricular tachycardia Fatigue Obstructive sleep apnea (adult) (pediatric) Home Medications ?Medication ?Instructions ?Recorded ?Last Taken ?Type aspirin 81 mg chewable tablet 81 mg PO DAILY@0800 heart health 01/11/15 03/10/19 History cetirizine 10 mg tablet (Zyrtec) 10 mg PO DAILY allergies 07/12/18 03/10/19 History carboxymethylcellulose sodium 1 % 1 drp ophthalmic (eye) 4-6XD PRN 02/26/22 Unknown History eye liquid gel drops (Lubricant Dry Eye Relief) omega 2-hue-bfj-fish oil 60 mg-90 1 cap PO DAILY 02/26/22 Unknown History mg-500 mg capsule (Fish Oil) diclofenac sodium 1 % topical gel 4 g topical ONCE #100 grams 05/07/22 Unknown Rx (Arthritis Pain (diclofenac)) clobetasol 0.05 % topical ointment 1 applic topical QHS #15 grams 02/03/23 Unknown Rx levothyroxine 112 mcg tablet 112 mcg PO DAILY thyroid #90 tabs 03/03/23 Unknown Rx lisinopril 20 mg tablet 20 mg PO QHS #90 tabs 03/11/23 Unknown Rx lisinopril 20 1 tab PO DAILY bp #90 tabs 03/11/23 Unknown Rx mg-hydrochlorothiazide 25 mg tablet potassium chloride 20 mEq 20 meq PO DAILY potassium #90 tabs 05/12/23 Unknown Rx tablet,extended release rosuvastatin 20 mg tablet 20 mg PO DAILY #30 tabs 07/27/23 Unknown Rx lansoprazole 30 mg capsule,delayed 30 mg PO DAILY gerd #90 caps 09/16/23 Unknown Rx release nystatin 100,000 unit/gram topical 1 applic topical DAILY #30 grams 09/16/23 Unknown Rx cream cyclobenzaprine 10 mg tablet 10 mg PO TID #30 tabs 12/02/23 Unknown Rx magnesium oxide 500 mg PO DAILY #90 tabs 12/03/23 Unknown Rx mesalamine 1.2 gram tablet,delayed 2.4 g (2 x 1.2 gram) PO QDAY 12/23/23 Unknown Rx release colitis #180 tabs albuterol sulfate 90 mcg/actuation 1 - 2 puff inhalation Q6H PRN 01/07/24 Unknown Rx aerosol inhaler shortness of breath or wheezing #8.5 grams fluticasone 250 mcg-salmeterol 50 1 ea inhalation BID sob #60 ea 01/07/24 Unknown Rx mcg/dose blistr powdr for inhalation metronidazole 500 mg tablet 500 mg PO Q8H 7 days #21 tabs 01/08/24 Unknown Rx sulfamethoxazole 800 1 tab PO Q12H 7 days #14 tabs 01/08/24 Unknown Rx mg-trimethoprim 160 mg tablet (Bactrim DS) Allergy/AdvReac Type Severity Reaction Status Date / Time amoxicillin Allergy Intermediate Hives Verified 01/10/24 16:57 Penicillins Allergy Intermediate Hives Verified 01/10/24 16:57 erythromycin base Allergy hives/rash Verified 01/10/24 16:57 Family History Sister Colon cancer Grandmother Cancer Hypertension Diabetes Grandmother Hypertension Cancer Surgical History History of foot surgery History of foot surgery History of hysterectomy History of colonoscopy Status post radiofrequency ablation (RFA) operation for arrhythmia (02/05/17) History of electrophysiologic study History of left heart catheterization (01/20/15) CHIOMA plantar fascitis repair H/O tubal ligation History of tonsillectomy Social History Smoking Status: Former smoker Tobacco: How many years used: 30 how long ago did patient quit smokin, 1ppd second hand exposure: Yes alcohol intake: never substance use type: does not use caffeine: Yes what type of physical activity do you participate in: none seatbelt use: always do you feel safe at home: Yes 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 ROS ROS ED ROS Narrative Denies recent illness. Constitutional Constitutional ED: Denies fever(s) Eyes Eyes: Denies blurry vision ENT ENT ED: Denies ear pain Cardiovascular Cardiovascular: Denies chest pain Respiratory/Chest Respiratory/Chest: Denies cough or dyspnea Gastrointestinal Gastrointestinal: Denies abdominal pain Genitourinary Genitourinary ED: Denies dysuria or hematuria Musculoskeletal Musculoskeletal: Denies back pain or myalgias Integumentary Denies abscess Neurologic Neurologic: Denies headache(s) Psychiatric Psychiatric: Denies anxiety Endocrine Endocrinology: Denies cold intolerance Allergic/Immunologic Allergic/Immunologic ED: Denies mouth swelling EXAM Physical Exam Narrative Exam Narrative: 4-year-old female no acute distress vital signs stable afebrile. HEENT exam normal. Lungs clear. Heart regular rhythm. Abdomen soft nontender. Moving all 4 extremities. Left mid forearm there is about a dime to quarter sized lesion is tender it is red it could be an abscess. I do not feel any obvious fluctuance. There is no lymphangitic streaking and no axillary lymphadenopathy. Arm is neurovascularly intact with full range of motion. 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 Const Vital Signs: 01/10/24 16:57 Temperature 97.3 F L Temperature Source Temporal Pulse Rate 93 Respiratory Rate 18 Blood Pressure 135/77 H Blood Pressure Mean 96 Pulse Ox 97 Oxygen Delivery Method Room Air Positive well nourished and well developed; Negative for cachectic General Appearance ED: well developed and NAD; Negative for cachectic, cyanotic or diaphoretic Nutritional Appearance: Negative for cachectic HEENT Reports moist mucous membranes normocephalic and atraumatic; Negative for trauma or tenderness Eyes PERRL and EOMs intact bilaterally Neck full ROM and supple Chest Wall inspection of chest normal and palpation of chest normal Resp normal respiratory effort and clear to auscultation bilaterally Effort and Inspection: Negative for pain with movement Auscultation: Negative for rales, rhonchi, wheezes or diminished lung sounds Cardio regular rate, regular rhythm, S1 normal heart sound, S2 normal heart sound and no murmurs Rhythm: Negative for abnormal rhythm GI non-tender, non-distended and no masses Inspection: Negative for abdominal distention Auscultation: normoactive bowel sounds Palpation: soft; Negative for tender, guarding or rebound tenderness present Back/Spine no CVA tenderness General Back: Negative for CVA tenderness Cervical Spine: Negative for cervical spine tenderness Thoracic Spine / Upper Back: Negative for thoracic spinal tenderness Lumbar Spine / Lower Back: Negative for lumbar spinal tenderness Extremity normal to inspection and full ROM Extremity Narrative: Except for the area of redness and tenderness to the mid left forearm. Possible abscess. General Extremety ED: Negative for edema General Extremity: Negative for edema Neuro oriented x3, CN's II-XII intact bilaterally, moves all extremities, no focal motor deficits and no sensory deficits noted Sensorium / Orientation: alert, oriented to person, oriented to place and oriented to time Motor Exam: strength 5/5 throughout Psych mental status grossly normal Skin Lesions: no lesions Rashes: no rashes MDM MDM MDM Narrative Medical decision making narrative: 58-year-old with possible abscess left forearm. Let will be applied. Local injection with lidocaine and incise and drain. Right forearm abscess. Let. And injected with lidocaine. Made a small 1 to 2 cm incision. Was able to express small amount 1 to 2 cc of pus small amount of blood. Explored the wound I feel or see any foreign body. Irrigated the wound. It was packed with half-inch gauze. She was instructed on wound care and packing removal in 4 days. Continue her current antibiotics. Return if worse. History & Record Review Discussion w/independent historian: Patient Procedures Other Procedures Procedure(s): Right forearm abscess incision and drainage. Let topically. Lidocaine injection. Incision 1 to 2 cm with a scalpel. Expressed 1 to 2 cc of pus. Explored the wound. No foreign body. Irrigated. Packed. Extracted all wound care. Discharge Plan Triage Chief Complaint: Wound Check ED Provider: Elie Resendiz Dx/Rx/DC Orders Clinical Impression: Abscess, Encounter for incision and drainage procedure Instructions: ED Abscess Incision And Drainage Prescriptions: No Action cetirizine [Zyrtec] 10 mg tablet 10 mg PO DAILY omega 1-fsi-csg-fish oil [Fish Oil] 60-90-500 mg capsule 1 cap PO DAILY carboxymethylcellulose sodium [Lubricant Dry Eye Relief] 1 % drops, liquid gel 1 drp ophthalmic (eye) 4-6XD PRN diclofenac sodium [Arthritis Pain (diclofenac)] 1 % gel 4 g topical ONCE Qty: 100 1RF Rx Instructions: apply to single knee, ankle, foot; for foot includes sole/toes/top of foot clobetasol 0.05 % ointment 1 applic topical QHS Qty: 15 1RF lisinopril-hydrochlorothiazide 20-25 mg tablet 1 tab PO DAILY Qty: 90 3RF lisinopril 20 mg tablet 20 mg PO QHS Qty: 90 3RF potassium chloride 20 mEq tablet extended release 20 meq PO DAILY Qty: 90 2RF rosuvastatin 20 mg tablet 20 mg PO DAILY Qty: 30 5RF lansoprazole 30 mg capsule,delayed release(DR/EC) 30 mg PO DAILY Qty: 90 1RF nystatin 100,000 unit/gram cream 1 applic topical DAILY Qty: 30 2RF cyclobenzaprine 10 mg tablet 10 mg PO TID Qty: 30 1RF sulfamethoxazole-trimethoprim [Bactrim DS] 800-160 mg tablet 1 tab PO Q12H 7 Days Qty: 14 0RF metronidazole 500 mg tablet 500 mg PO Q8H 7 Days Qty: 21 0RF aspirin 81 MG tablet,chewable 81 mg PO DAILY@0800 levothyroxine 112 mcg tablet 112 mcg PO DAILY Qty: 90 3RF magnesium oxide 500 mg magnesium tablet 500 mg PO DAILY Qty: 90 2RF mesalamine 1.2 gram tablet,delayed release (DR/EC) 2.4 g PO QDAY Qty: 180 0RF albuterol sulfate 90 mcg/actuation HFA aerosol inhaler 1 - 2 puff inhalation Q6H PRN (Reason: shortness of breath or wheezing) Qty: 8.5 1RF fluticasone propion-salmeterol 250-50 mcg/dose blister with device 1 ea INHALATION BID Qty: 60 6RF Primary Care Provider: Pato Ching Referrals: Pato Ching, DO [Primary Care Provider] - As Needed Activity Restrictions/Additional Instructions: Continue to finish both antibiotics. Warm compresses to the wound. Tylenol and Motrin for pain. Pull the packing out on morning. If it falls I will just leave it out. This should progressively improve. If not return. Print Language: Beninese Disposition Disposition: Home, Self Care
[2024-01-10] MEDS: Lidocaine/Epi/Tetracaine 50 ML 1 APPLIC TOPICAL (17:32)
[2024-01-10] MEDS: Lidocaine 1% (20 ml mdv) 20 ML Vial 10 ML INFILT (17:32)
[2024-01-10 18:53] VITALS: BP 139/76; PULSE 75; RESP 16; TEMP 36.6; O2SAT 99
== END 2024-01-10 19:02 | disposition home or self-care (01) ==
PROVIDERS: Emergency Provider Emergency Medicine; PCP Family Medicine; Visit Provider Emergency Medicine
DX: L02.414 Cutaneous abscess of left upper limb (principal); I10 Essential (primary) hypertension; Z87.891 Personal history of nicotine dependence; E78.5 Hyperlipidemia, unspecified; I25.10 Atherosclerotic heart disease of native coronary artery without angina pectoris; Z79.82 Long term (current) use of aspirin; Z79.899 Other long term (current) drug therapy; E03.9 Hypothyroidism, unspecified; K21.9 Gastro-esophageal reflux disease without esophagitis; J45.909 Unspecified asthma, uncomplicated; Z79.51 Long term (current) use of inhaled steroids; Z90.710 Acquired absence of both cervix and uterus; Z98.51 Tubal ligation status
CPT/HCPCS: 10060; 99283

== ENCOUNTER → 2024-01-13 | Outpatient (CLI) | payer OTHER, SELFPAY | END | disposition home or self-care (01) | LOC: LABSPEC 10:49 | PROVIDERS: PCP Family Medicine; Referring Provider Family Medicine; Visit Provider Family Medicine | DX: L03.114 Cellulitis of left upper limb (principal) | CPT/HCPCS: 87070; 87077; 87186; 87205 ==

== ENCOUNTER → 2024-01-26 | Outpatient (CLI) | payer OTHER, SELFPAY | END | disposition home or self-care (01) | PROVIDERS: PCP Family Medicine; Referring Provider Family Medicine; Visit Provider Family Medicine | DX: Z00.00 Encounter for general adult medical examination without abnormal findings (principal) ==

== ENCOUNTER → 2024-03-17 | Outpatient (CLI) | payer OTHER, SELFPAY ==
[2024-03-17 16:38] LABS: Hematocrit 44.5 % (37-47); Hemoglobin 14.9 g/dL (12.0-15.0); Mean Corp Hgb Conc 33.5 g/dL (32-36); Mean Corpuscular Hgb 30.1 pg (27.0-32.0); Mean Corpuscular Volume 89.9 fL (81-99); Mean Platelet Vol. 12.3 fl (6.2-12.0); Platelet Count 206 K/mm3 (150-450); RBC Distribution Width CV 12.5 % (11.6-14.6); RBC Distribution Width SD 41.2 fl (35.1-43.9); Red Blood Count 4.95 M/mm3 (4.2-5.4); White Blood Count 7.6 K/mm3 (4.4-11.0)
[2024-03-17 16:58] LABS: ALB/GLOB Ratio 1.2 RATIO (0.9-2.4); AST(SGOT) 35 U/L (15-37); Alanine Aminotransfer ALT/SGPT 53 U/L (13-56); Albumin, Serum 3.8 g/dL (3.2-5.0); Alkaline Phosphatase 147 U/L (45-117); Anion Gap 7 (5-15); BUN 14 mg/dL (7-18); BUN/Creat Ratio 16.9 RATIO (10-20); Calcium,Total 9.2 mg/dL (8.5-10.1); Chloride 107 mmol/L (98-107); Cholesterol 171 mg/dL (200); Creatinine, Serum 0.83 mg/dL (0.55-1.02); EST Glomerular Filtration Rate 75 mL/min (>60); Est Glom Filt Rate - Afr Amer 90 mL/min (>60); Globulin 3.2 g/dL (2.2-4.2); Glucose 133 mg/dL (74-106); High Density Lipoprotein 51 mg/dL; Potassium 3.9 mmol/L (3.5-5.1); Sodium Level 139 mmol/L (136-145); Triglycerides 124 mg/dL; Very Low Density Lipoprotein 25 mg/dL (5-40)
== END | disposition home or self-care (01) ==
LOC: BIMLAB 15:11
PROVIDERS: PCP Family Medicine; Referring Provider Family Medicine; Visit Provider Family Medicine
DX: I10 Essential (primary) hypertension (principal); E03.9 Hypothyroidism, unspecified
CPT/HCPCS: 36415; 80053; 80061; 84443; 85027

== ENCOUNTER 2024-07-11 13:52 | Emergency (ER) | payer OTHER, SELFPAY ==
[2024-07-11 13:53] VITALS: BP 115/77; PULSE 114; RESP 18; TEMP 37.1; O2SAT 98
--- NOTE | 2024-07-11 15:35 | EX.ED.DYSGE1 ---
HPI History of Present Illness Chief Complaint: Wound Check Detail of Chief Complaint: Facial abscess and cellulitis Informant: patient Onset/Context/Timing Onset: Days (Started 4 days ago after she attempted to squeeze which she believed to be a pimple) Context: Sudden Onset Timing: Continuous Quality: Abscess drained last evening with persistent cellulitis Location: Left submental region Current Severity: Mild Maximum Severity: Mild Worsened by: Temp to squeeze pimple . Relieved by: Nothing Associated Symptoms Associated Symptoms: None Narrative Narrative: Patient is a 58-year-old woman. She went to outside institution last evening. The abscess was drained. She was placed on trimethoprim/sulfamethoxazole double strength. Culture was sent. She denies history of diabetes. She denies history medic fever, heart murmur or mitral valve prolapse. She denies fever or chills. She took a dose of the antibiotic last night and this morning. She did not take her 3 PM dose. Prior similar symptoms: No Recent Illness/[facility]ospitalization: [facility] Medical History Somatic dysfunction of back Essential hypertension Dysuria Pain in right foot Skin tags, multiple acquired Eczema of hand Leg pain, left Adnexal fullness Pelvic abscess Abnormal CT of the abdomen Nausea & vomiting Pre-operative cardiovascular examination Abnormal uterine bleeding Uterine fibroid Trochanteric bursitis of left hip Obstructive sleep apnea (adult) (pediatric) Arthritis Colitis Thyroid disease Seasonal allergies Chronic vasomotor rhinitis Thoracic back pain Contusion of left forearm, initial encounter Sprain of left thumb Asthma Acid reflux Hypothyroid Premature ventricular contractions (PVCs) (VPCs) HTN (hypertension) Dyspnea on exertion HLD (hyperlipidemia) Atherosclerotic heart disease of [place] coronary artery without angina pectoris Paroxysmal ventricular tachycardia Fatigue Obstructive sleep apnea (adult) (pediatric) Home Medications ?Medication ?Instructions ?Recorded ?Last Taken ?Type aspirin 81 mg chewable tablet 81 mg PO DAILY@0800 heart health 01/11/15 03/10/19 History cetirizine 10 mg tablet (Zyrtec) 10 mg PO DAILY allergies 07/12/18 03/10/19 History carboxymethylcellulose sodium 1 % 1 drp ophthalmic (eye) 4-6XD PRN 02/26/22 Unknown History eye liquid gel drops (Lubricant Dry Eye Relief) omega 9-jaq-cnv-fish oil 60 mg-90 1 cap PO DAILY 02/26/22 Unknown History mg-500 mg capsule (Fish Oil) diclofenac sodium 1 % topical gel 4 g topical ONCE #100 grams 05/07/22 Unknown Rx (Arthritis Pain (diclofenac)) clobetasol 0.05 % topical ointment 1 applic topical QHS #15 grams 02/03/23 Unknown Rx rosuvastatin 20 mg tablet 20 mg PO DAILY #30 tabs 07/27/23 Unknown Rx albuterol sulfate 90 mcg/actuation 1 - 2 puff inhalation Q6H PRN 01/07/24 Unknown Rx aerosol inhaler shortness of breath or wheezing #8.5 grams fluticasone 250 mcg-salmeterol 50 1 ea inhalation BID sob #60 ea 01/07/24 Unknown Rx mcg/dose blistr powdr for inhalation fluconazole 100 mg tablet 100 mg PO QDAY #2 tabs 02/04/24 Unknown Rx (Diflucan) lisinopril 20 mg tablet 20 mg PO QHS #90 tabs 02/04/24 Unknown Rx lisinopril 20 1 tab PO DAILY bp #90 tabs 02/04/24 Unknown Rx mg-hydrochlorothiazide 25 mg tablet potassium chloride 20 mEq 20 meq PO DAILY potassium #90 tabs 02/04/24 Unknown Rx tablet,extended release levothyroxine 112 mcg tablet 112 mcg PO DAILY thyroid #90 tabs 03/01/24 Unknown Rx lansoprazole 30 mg capsule,delayed 30 mg PO DAILY gerd #90 caps 04/12/24 Unknown Rx release benzonatate 200 mg capsule 200 mg PO TID #20 caps 06/14/24 Unknown Rx magnesium oxide 500 mg PO DAILY #90 tabs 06/14/24 Unknown Rx mesalamine 1.2 gram tablet,delayed 2.4 g (2 x 1.2 gram) PO QDAY 06/14/24 Unknown Rx release colitis #180 tabs nystatin 100,000 unit/gram topical 1 applic topical DAILY #30 grams 06/14/24 Unknown Rx cream prednisone 10 mg tablets in a dose See Rx Instructions PO PER PKG DIR 06/14/24 Unknown Rx pack #21 tabs doxycycline monohydrate 100 mg 100 mg PO BID #14 CAPSULES 07/11/24 Unknown Rx capsule Allergy/AdvReac Type Severity Reaction Status Date / Time amoxicillin Allergy Intermediate Hives Verified 07/11/24 13:53 Penicillins Allergy Intermediate Hives Verified 07/11/24 13:53 erythromycin base Allergy hives/rash Verified 07/11/24 13:53 Family History Sister Colon cancer Grandmother Cancer Hypertension Diabetes Grandmother Hypertension Cancer Surgical History History of foot surgery History of foot surgery History of hysterectomy History of colonoscopy Status post radiofrequency ablation (RFA) operation for arrhythmia (02/05/17) History of electrophysiologic study History of left heart catheterization (01/20/15) CHIOMA plantar fascitis repair H/O tubal ligation History of tonsillectomy Social History Smoking Status: Former smoker Tobacco: How many years used: 30 how long ago did patient quit smokin, 1ppd second hand exposure: Yes alcohol intake: never substance use type: does not use caffeine: Yes what type of physical activity do you participate in: none seatbelt use: always do you feel safe at home: Yes 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 [employer] ROS ED Constitutional Constitutional ED: Denies chills, fever(s), subjective or sweats Gastrointestinal Gastrointestinal: Denies nausea or vomiting Musculoskeletal Musculoskeletal: Denies neck pain Integumentary Reports rash Neurologic Neurologic: Denies weakness EXAM Physical Exam Const Vital Signs: 07/11/24 13:53 Temperature 98.7 F Temperature Source Oral Pulse Rate 114 H Respiratory Rate 18 Blood Pressure 115/77 Blood Pressure Mean 89 Pulse Ox 98 Oxygen Delivery Method Room Air Positive well nourished and well developed Constitutional Narrative: Vital signs are normal. She is afebrile. General Appearance ED: well developed HEENT Reports moist mucous membranes HEENT Narrative: Patient has cellulitis of the face predominate left side and incision made left submental region. She states there was purulent material. There is question of 1 area of fluctuance. Will perform ultrasound to determine if there is fluid and if there is significant fluid. Eyes PERRL and EOMs intact bilaterally General Eye ED: Negative for pale conjunctiva Neck No no lymphadenopathy, supple and no JVD Neck Narrative: Submental lymph node General: tenderness Chest Wall inspection of chest normal Resp normal respiratory effort and clear to auscultation bilaterally Cardio regular rate, regular rhythm, S1 normal heart sound, S2 normal heart sound and no murmurs Extremity normal to inspection Neuro oriented x3 and CN's II-XII intact bilaterally Sensorium / Orientation: alert Psych mental status grossly normal Skin No no rashes or lesions noted Skin Narrative: Status postdrainage abscess with residual cellulitis MDM MDM MDM Narrative Medical decision making narrative: Since there was area of that was concerning for fluid ultrasound was performed. There may be slight fluid collection. There is a lymph node that is noted as well. Needle aspirate of the region where there was concern for small amount of fluid was negative for fluid. This just may be reactive tissue from the infection. Since patient has history of MRSA she was instructed to continue taking the trimethoprim/sulfamethoxazole. Trimethoprim/sulfamethoxazole has a 50% failure rate/resistance to streptococcal organism. Since patient has allergy to amoxicillin and penicillin with hives and hives to erythromycin will have patient discontinue the trimethoprim/sulfamethoxazole and treat with doxycycline which will cover both streptococcal organisms, anaerobes and staph and specifically MRSA. Procedures Other Procedures Procedure(s): Ultrasound soft tissue. Question of fluid collection. Needle aspirate was negative. Discharge Plan Triage Chief Complaint: Wound Check ED Provider: Ruel Olivera Dx/Rx/DC Orders Clinical Impression: Cellulitis of face Instructions: ED Cellulitis, Facial Prescriptions: New doxycycline monohydrate 100 mg capsule 100 mg PO BID Qty: 14 0RF No Action cetirizine [Zyrtec] 10 mg tablet 10 mg PO DAILY omega 4-oug-pwh-fish oil [Fish Oil] 60-90-500 mg capsule 1 cap PO DAILY carboxymethylcellulose sodium [Lubricant Dry Eye Relief] 1 % drops, liquid gel 1 drp ophthalmic (eye) 4-6XD PRN diclofenac sodium [Arthritis Pain (diclofenac)] 1 % gel 4 g topical ONCE Qty: 100 1RF Rx Instructions: apply to single knee, ankle, foot; for foot includes sole/toes/top of foot clobetasol 0.05 % ointment 1 applic topical QHS Qty: 15 1RF rosuvastatin 20 mg tablet 20 mg PO DAILY Qty: 30 5RF potassium chloride 20 mEq tablet extended release 20 meq PO DAILY Qty: 90 2RF lisinopril-hydrochlorothiazide 20-25 mg tablet 1 tab PO DAILY Qty: 90 3RF lisinopril 20 mg tablet 20 mg PO QHS Qty: 90 3RF fluconazole [Diflucan] 100 mg tablet 100 mg PO QDAY Qty: 2 1RF Rx Instructions: may repeat in three days lansoprazole 30 mg capsule,delayed release(DR/EC) 30 mg PO DAILY Qty: 90 1RF benzonatate 200 mg capsule 200 mg PO TID Qty: 20 1RF prednisone 10 mg tablets,dose pack See Rx Instructions PO PER PKG DIR Qty: 21 0RF Rx Instructions: PO PER PKG DIR mesalamine 1.2 gram tablet,delayed release (DR/EC) 2.4 g PO QDAY Qty: 180 0RF magnesium oxide 500 mg magnesium tablet 500 mg PO DAILY Qty: 90 2RF nystatin 100,000 unit/gram cream 1 applic topical DAILY Qty: 30 2RF aspirin 81 MG tablet,chewable 81 mg PO DAILY@0800 albuterol sulfate 90 mcg/actuation HFA aerosol inhaler 1 - 2 puff inhalation Q6H PRN (Reason: shortness of breath or wheezing) Qty: 8.5 1RF fluticasone propion-salmeterol 250-50 mcg/dose blister with device 1 ea INHALATION BID Qty: 60 6RF levothyroxine 112 mcg tablet 112 mcg PO DAILY Qty: 90 3RF Primary Care Provider: Pato Ching Referrals: Pato Ching, [Primary Care Provider] - Activity Restrictions/Additional Instructions: 1. Discontinue taking the trimethoprim/sulfamethoxazole 2. Warm/hot compresses 8 times a day 3. If you develop a fever greater than 100, shaking chills or worsening of your symptoms after 48 hours of antibiotics return to the ER otherwise follow-up with your primary care physician for wound check in 2 days Print Language: Greenlandic Disposition Disposition: Home, Self Care
[2024-07-11 15:50] VITALS: BMI 31.6
[2024-07-11 15:53] VITALS: BP 125/69; PULSE 86; RESP 18; TEMP 36.9; O2SAT 95
== END 2024-07-11 16:00 | disposition home or self-care (01) ==
PROVIDERS: Emergency Provider Emergency Medicine; PCP Family Medicine; Visit Provider Emergency Medicine
DX: L03.211 Cellulitis of face (principal); Z87.891 Personal history of nicotine dependence; I10 Essential (primary) hypertension; I25.10 Atherosclerotic heart disease of native coronary artery without angina pectoris; E78.5 Hyperlipidemia, unspecified; J45.909 Unspecified asthma, uncomplicated; K21.9 Gastro-esophageal reflux disease without esophagitis; Z86.14 Personal history of Methicillin resistant Staphylococcus aureus infection
CPT/HCPCS: 99282

== ENCOUNTER → 2024-11-09 | Outpatient (CLI) | payer OTHER, SELFPAY ==
--- NOTE | 2024-11-09 12:12 | RAD_ITS ---
PROCEDURE: KNEE 4 OR MORE VIEWS 11/09/2024 REASON FOR EXAM: KNEE PAIN TECHNIQUE: KNEE 4 OR MORE VIEWS COMPARISON: None. FINDINGS: Chronic calcifications of the medial collateral ligament. Mild suprapatellar knee joint effusion. Mild osteopenia of the visualized bones. Degenerative joint disease. No fracture or dislocation is seen. No lytic or blastic bone lesion is noted. RAD/Knee 4 or More Views IMPRESSION: Degenerative joint disease. Mild suprapatellar knee joint effusion. Reading Location: [facility]
== END | disposition home or self-care (01) ==
LOC: RAD 12:11
PROVIDERS: PCP Family Medicine; Referring Provider Family Medicine; Visit Provider Family Medicine
DX: M25.561 Pain in right knee (principal)
CPT/HCPCS: 73564